=== PATIENT | male | born 1960 | race Caucasian/White ===

== ENCOUNTER 2018-06-29 10:23 | Inpatient (IN) ==
--- NOTE | 2018-06-29 11:10 | ED ---
HPI General Chief complaint: Medical Clearance Stated complaint: Medical Time Seen by Provider: 06/29/18 15:40 Source: patient Mode of arrival: ambulatory Limitations: no limitations History of Present Illness HPI Narrative: 57-year-old male here today with concerns about hallucinations, Parkinson's, and suicidal thoughts today. He has visual hallucinations, he does not have auditory hallucinations, which got worse when starting Nuplazid. He is awake alert oriented at this time. 2 months ago he had significant UTI and gallbladder surgery, and states he has not felt very well since the anesthesia from gallbladder surgery. His is at bedside and states she went in to the room with him today and he had a whole bottle of carbidopa/levodopa and was getting ready to swallow them all. He reports feelings of Despair and "don't want to live like this anymore". He sees Dr. Henry for neurology. Home Medications Medication Instructions Recorded Confirmed aspirin [Aspirin Low Dose] 81 mg PO DAILY 06/29/18 06/29/18 bupropion HCl 150 mg PO DAILY 06/29/18 06/29/18 carbidopa-levodopa 1 tab PO TID 06/29/18 06/29/18 losartan 100 mg PO DAILY 06/29/18 06/29/18 metoprolol tartrate 100 mg PO BID 06/29/18 06/29/18 pimavanserin [Nuplazid] 34 mg PO DAILY 06/29/18 06/29/18 pramipexole 0.5 mg PO TID 06/29/18 06/29/18 simvastatin 40 mg PO QPM 06/29/18 06/29/18 Allergies Allergy/AdvReac Type Severity Reaction Status Date / Time No Known Allergies Allergy Verified 06/29/18 10:54 Review of Systems ROS: all other systems reviewed are negative FOR[facility]LY [facility] Medical History Medical History Acute paranoia (Acute) HTN (hypertension) (Acute) Hallucinations, visual (Acute) Hypercholesteremia (Acute) Kidney stones (Acute) Parkinson disease (Acute) Family History Family History Other Cancer Diabetes Social History Social History Substance History: No History of Abuse Second Hand Smoke Exposure: No Smoking Status: Never smoker How Often Do You Have a Drink Containing Alcohol: Never Immunization History Tetanus Immunization: >5 Years Hx Influenza Vaccine This Season: No Exam Narrative Exam Narrative: GENERAL: Pt awake, alert, oriented. He is calm and cooperative. SKIN: Focused skin assessment warm/dry. HEAD: Atraumatic. Normocephalic. EYES: Pupils equal and round. No scleral icterus. No injection or drainage. ENT: No nasal bleeding or discharge. Mucous membranes pink and moist. NECK: Trachea midline. No JVD. CARDIOVASCULAR: Regular rate and rhythm. No murmur appreciated. RESPIRATORY: No accessory muscle use. Clear to auscultation. Breath sounds equal bilaterally. GASTROINTESTINAL: Abdomen soft, non-tender, nondistended. Hepatic and splenic margins not palpable. MUSCULOSKELETAL: No obvious deformities. No clubbing. No cyanosis. No edema. NEUROLOGICAL: Awake and alert. No obvious cranial nerve deficits. Motor grossly within normal limits. Normal speech. PSYCHIATRIC: Appropriate mood and affect; insight and judgment normal. Denies alcohol or drug use. Course Initial Documented Vital Signs Temperature 97.5 F L 06/29/18 10:29 Pulse Rate 65 06/29/18 10:29 Blood Pressure 177/86 H 06/29/18 10:29 Pulse Oximetry 97 06/29/18 10:29 Last Documented Vital Signs Temperature 97.6 F 07/02/18 05:59 Pulse Rate 62 07/02/18 05:59 Respiratory Rate 16 07/02/18 05:59 Blood Pressure 110/60 07/02/18 05:59 Pulse Oximetry 96 07/02/18 05:59 Medical Decision Making MDM Narrative Medical decision making narrative: Pt here for evaluation of visual hallucinations that are getting worse. Hx Parkinsons. Started on Nuplazid 2 weeks ago and is concerned that this medication may be causing hallucination. Hes awake, alert, oriented at this time, cooperative. at bedside. Will evaluate labwork and order psych evaluation. Seeing Dr. Henry for neurology. (+) UTI on labwork, Bactrim DS x 1 dose given today in ER. All other labs ok and pt medically cleared for psychiatry evaluation. Made [employer] RN aware. Pt admitted to psychiatric services with dx of adjustment disorder. Stable for admission, will need to continue antibiotics for urinary tract infection. Medical Screen Exam Complete: Yes Emergency Medical Condition: Yes Differential Diagnosis Differential Diagnosis: Urinary tract infection, paranoia, visual hallucinations , schizophrenia Lab Data Lab results reviewed: Yes I reviewed the patient's lab results. Lab results narrative: Urinalysis with 40 WBC's. 23 RBC's, Moderate amount of blood. Result diagrams: 06/29/18 11:24 06/30/18 08:40 Lab Results 06/29/18 06/29/18 06/29/18 Range/Units 11:24 11:30 11:30 WBC 7.2 (4.0-11.0) th/mm3 RBC 5.34 (4.50-5.90) mil/mm3 Hgb 15.7 (13.0-17.0) gm/dL Hct 47.5 (39.0-51.0) % MCV 88.9 (80.0-100.0) fL MCH 29.3 (27.0-34.0) pg MCHC 33.0 (32.0-36.0) % RDW 13.4 (11.6-17.2) % Plt Count 208 (150-450) th/mm3 MPV 9.3 (7.0-11.0) fL Neut % (Auto) 76.9 H (16.0-70.0) % Lymph % (Auto) 14.6 (9.0-44.0) % Lamb % (Auto) 6.3 (0.0-8.0) % Eos % (Auto) 1.5 (0.0-4.0) % Baso % (Auto) 0.7 (0.0-2.0) % Neut # (Auto) 5.5 (1.8-7.7) th/mm3 Lymph # (Auto) 1.1 (1.0-4.8) th/mm3 Lamb # (Auto) 0.5 (0.0-0.9) th/mm3 Eos # (Auto) 0.1 (0.0-0.4) th/mm3 Baso # (Auto) 0.1 (0.0-0.2) th/mm3 WBC Differential . Differential Comment Auto diff final ESR (0-20) mm/hr Sodium (136-145) meq/L Potassium (3.5-5.1) meq/L Chloride (98-107) meq/L Carbon Dioxide (21.0-32.0) meq/L Anion Gap (5-15) meq/L BUN (7-18) mg/dL Creatinine (0.60-1.30) mg/dL Estimated GFR (>89) mL/min Random Glucose (74-106) mg/dL Hemoglobin A1c (4.3-6.0) % Calcium (8.5-10.1) mg/dL Total Bilirubin (0.2-1.0) mg/dL AST (15-37) U/L ALT (12-78) U/L Alkaline Phosphatase (45-117) U/L Total Creatine Kinase (39-308) U/L CK-MB (CK-2) (0.5-3.6) ng/mL CK-MB (CK-2) % (0.0-4.0) % Total Protein (6.4-8.2) g/dL Albumin (3.4-5.0) g/dL Triglycerides (42-150) mg/dL Cholesterol (120-200) mg/dL LDL Cholesterol, Calc (0-99) mg/dL HDL Cholesterol (40.0-60.0) mg/dL Cholesterol/HDL Ratio Ratio Vitamin B12 (193-986) pg/mL TSH (0.358-3.740) uIU/mL Free T4 (0.76-1.46) ng/dL Urine Color Yellow (Yellw/Straw) Urine Clarity Hazy H (Clear) Urine pH 6.0 (5.0-8.5) Ur Specific [place] 1.016 (1.002-1.035) Urine Protein Negative (Neg-Trace) mg/dL Urine Glucose (UA) Negative (Negative) mg/dL Urine Ketones Trace H (Negative) mg/dL Urine Occult Blood Moderate H (Negative) Urine Nitrate Negative (Negative) Urine Bilirubin Negative (Negative) Urine Urobilinogen Less than 2 (Less than 2) mg/dL Ur Leukocyte Esterase Small H (Negative) Urine RBC 23 H (0-3) /hpf Urine WBC 40 H (0-5) /hpf Ur Squamous Epith Cells 1 (0-5) /hpf Urine Mucus Many H (Occasional) /lpf Micro UA Comment Culture indicated Ur Microscopic Review Not Reportable Urine Culture Comments Culture indicated Urine Opiates Screen Neg (Neg) Ur Barbiturates Screen Neg (Neg) Ur Amphetamines Screen Neg (Neg) U Benzodiazepines Scrn Neg (Neg) Urine Cocaine Screen Neg (Neg) U Cannabinoids Screen Neg (Neg) Serum Alcohol (0-5) mg/dL Rheumatoid Factor Scrn (Negative) Rheumatoid Factor Titer EDWIN Screen (Neg) RPR (Nonreactive) 06/29/18 06/30/18 06/30/18 Range/Units 12:20 08:40 08:40 WBC (4.0-11.0) th/mm3 RBC (4.50-5.90) mil/mm3 Hgb (13.0-17.0) gm/dL Hct (39.0-51.0) % MCV (80.0-100.0) fL MCH (27.0-34.0) pg MCHC (32.0-36.0) % RDW (11.6-17.2) % Plt Count (150-450) th/mm3 MPV (7.0-11.0) fL Neut % (Auto) (16.0-70.0) % Lymph % (Auto) (9.0-44.0) % Lamb % (Auto) (0.0-8.0) % Eos % (Auto) (0.0-4.0) % Baso % (Auto) (0.0-2.0) % Neut # (Auto) (1.8-7.7) th/mm3 Lymph # (Auto) (1.0-4.8) th/mm3 Lamb # (Auto) (0.0-0.9) th/mm3 Eos # (Auto) (0.0-0.4) th/mm3 Baso # (Auto) (0.0-0.2) th/mm3 WBC Differential Differential Comment ESR (0-20) mm/hr Sodium 144 140 (136-145) meq/L Potassium 4.0 3.7 (3.5-5.1) meq/L Chloride 107 107 (98-107) meq/L Carbon Dioxide 27.5 24.3 (21.0-32.0) meq/L Anion Gap 10 9 (5-15) meq/L BUN 15 17 (7-18) mg/dL Creatinine 0.78 0.92 (0.60-1.30) mg/dL Estimated GFR Greater than 89 85 L (>89) mL/min Random Glucose 92 151 H (74-106) mg/dL Hemoglobin A1c 5.6 (4.3-6.0) % Calcium 8.5 8.8 (8.5-10.1) mg/dL Total Bilirubin 0.7 (0.2-1.0) mg/dL AST 14 L (15-37) U/L ALT 11 L (12-78) U/L Alkaline Phosphatase 75 (45-117) U/L Total Creatine Kinase (39-308) U/L CK-MB (CK-2) (0.5-3.6) ng/mL CK-MB (CK-2) % (0.0-4.0) % Total Protein 7.3 (6.4-8.2) g/dL Albumin 3.7 (3.4-5.0) g/dL Triglycerides 83 (42-150) mg/dL Cholesterol 169 (120-200) mg/dL LDL Cholesterol, Calc 107 H (0-99) mg/dL HDL Cholesterol 45.0 (40.0-60.0) mg/dL Cholesterol/HDL Ratio 3.75 Ratio Vitamin B12 (193-986) pg/mL TSH 1.020 (0.358-3.740) uIU/mL Free T4 (0.76-1.46) ng/dL Urine Color (Yellw/Straw) Urine Clarity (Clear) Urine pH (5.0-8.5) Ur Specific [place] (1.002-1.035) Urine Protein (Neg-Trace) mg/dL Urine Glucose (UA) (Negative) mg/dL Urine Ketones (Negative) mg/dL Urine Occult Blood (Negative) Urine Nitrate (Negative) Urine Bilirubin (Negative) Urine Urobilinogen (Less than 2) mg/dL Ur Leukocyte Esterase (Negative) Urine RBC (0-3) /hpf Urine WBC (0-5) /hpf Ur Squamous Epith Cells (0-5) /hpf Urine Mucus (Occasional) /lpf Micro UA Comment Ur Microscopic Review Urine Culture Comments Urine Opiates Screen (Neg) Ur Barbiturates Screen (Neg) Ur Amphetamines Screen (Neg) U Benzodiazepines Scrn (Neg) Urine Cocaine Screen (Neg) U Cannabinoids Screen (Neg) Serum Alcohol Less than 3 (0-5) mg/dL Rheumatoid Factor Scrn (Negative) Rheumatoid Factor Titer EDWIN Screen (Neg) RPR (Nonreactive) 06/30/18 06/30/18 06/30/18 Range/Units 08:40 11:04 11:04 WBC (4.0-11.0) th/mm3 RBC (4.50-5.90) mil/mm3 Hgb (13.0-17.0) gm/dL Hct (39.0-51.0) % MCV (80.0-100.0) fL MCH (27.0-34.0) pg MCHC (32.0-36.0) % RDW (11.6-17.2) % Plt Count (150-450) th/mm3 MPV (7.0-11.0) fL Neut % (Auto) (16.0-70.0) % Lymph % (Auto) (9.0-44.0) % Lamb % (Auto) (0.0-8.0) % Eos % (Auto) (0.0-4.0) % Baso % (Auto) (0.0-2.0) % Neut # (Auto) (1.8-7.7) th/mm3 Lymph # (Auto) (1.0-4.8) th/mm3 Lamb # (Auto) (0.0-0.9) th/mm3 Eos # (Auto) (0.0-0.4) th/mm3 Baso # (Auto) (0.0-0.2) th/mm3 WBC Differential Differential Comment ESR 1 (0-20) mm/hr Sodium (136-145) meq/L Potassium (3.5-5.1) meq/L Chloride (98-107) meq/L Carbon Dioxide (21.0-32.0) meq/L Anion Gap (5-15) meq/L BUN (7-18) mg/dL Creatinine (0.60-1.30) mg/dL Estimated GFR (>89) mL/min Random Glucose (74-106) mg/dL Hemoglobin A1c (4.3-6.0) % Calcium (8.5-10.1) mg/dL Total Bilirubin (0.2-1.0) mg/dL AST (15-37) U/L ALT (12-78) U/L Alkaline Phosphatase (45-117) U/L Total Creatine Kinase (39-308) U/L CK-MB (CK-2) (0.5-3.6) ng/mL CK-MB (CK-2) % (0.0-4.0) % Total Protein (6.4-8.2) g/dL Albumin (3.4-5.0) g/dL Triglycerides (42-150) mg/dL Cholesterol (120-200) mg/dL LDL Cholesterol, Calc (0-99) mg/dL HDL Cholesterol (40.0-60.0) mg/dL Cholesterol/HDL Ratio Ratio Vitamin B12 185 L (193-986) pg/mL TSH (0.358-3.740) uIU/mL Free T4 1.13 (0.76-1.46) ng/dL Urine Color (Yellw/Straw) Urine Clarity (Clear) Urine pH (5.0-8.5) Ur Specific [place] (1.002-1.035) Urine Protein (Neg-Trace) mg/dL Urine Glucose (UA) (Negative) mg/dL Urine Ketones (Negative) mg/dL Urine Occult Blood (Negative) Urine Nitrate (Negative) Urine Bilirubin (Negative) Urine Urobilinogen (Less than 2) mg/dL Ur Leukocyte Esterase (Negative) Urine RBC (0-3) /hpf Urine WBC (0-5) /hpf Ur Squamous Epith Cells (0-5) /hpf Urine Mucus (Occasional) /lpf Micro UA Comment Ur Microscopic Review Urine Culture Comments Urine Opiates Screen (Neg) Ur Barbiturates Screen (Neg) Ur Amphetamines Screen (Neg) U Benzodiazepines Scrn (Neg) Urine Cocaine Screen (Neg) U Cannabinoids Screen (Neg) Serum Alcohol (0-5) mg/dL Rheumatoid Factor Scrn Negative (Negative) Rheumatoid Factor Titer Not Reportable EDWIN Screen Neg (Neg) RPR Nonreactive (Nonreactive) 07/01/18 Range/Units 07:57 WBC (4.0-11.0) th/mm3 RBC (4.50-5.90) mil/mm3 Hgb (13.0-17.0) gm/dL Hct (39.0-51.0) % MCV (80.0-100.0) fL MCH (27.0-34.0) pg MCHC (32.0-36.0) % RDW (11.6-17.2) % Plt Count (150-450) th/mm3 MPV (7.0-11.0) fL Neut % (Auto) (16.0-70.0) % Lymph % (Auto) (9.0-44.0) % Lamb % (Auto) (0.0-8.0) % Eos % (Auto) (0.0-4.0) % Baso % (Auto) (0.0-2.0) % Neut # (Auto) (1.8-7.7) th/mm3 Lymph # (Auto) (1.0-4.8) th/mm3 Lamb # (Auto) (0.0-0.9) th/mm3 Eos # (Auto) (0.0-0.4) th/mm3 Baso # (Auto) (0.0-0.2) th/mm3 WBC Differential Differential Comment ESR (0-20) mm/hr Sodium (136-145) meq/L Potassium (3.5-5.1) meq/L Chloride (98-107) meq/L Carbon Dioxide (21.0-32.0) meq/L Anion Gap (5-15) meq/L BUN (7-18) mg/dL Creatinine (0.60-1.30) mg/dL Estimated GFR (>89) mL/min Random Glucose (74-106) mg/dL Hemoglobin A1c (4.3-6.0) % Calcium (8.5-10.1) mg/dL Total Bilirubin (0.2-1.0) mg/dL AST (15-37) U/L ALT (12-78) U/L Alkaline Phosphatase (45-117) U/L Total Creatine Kinase 351 H (39-308) U/L CK-MB (CK-2) 2.7 (0.5-3.6) ng/mL CK-MB (CK-2) % 0.8 (0.0-4.0) % Total Protein (6.4-8.2) g/dL Albumin (3.4-5.0) g/dL Triglycerides (42-150) mg/dL Cholesterol (120-200) mg/dL LDL Cholesterol, Calc (0-99) mg/dL HDL Cholesterol (40.0-60.0) mg/dL Cholesterol/HDL Ratio Ratio Vitamin B12 (193-986) pg/mL TSH (0.358-3.740) uIU/mL Free T4 (0.76-1.46) ng/dL Urine Color (Yellw/Straw) Urine Clarity (Clear) Urine pH (5.0-8.5) Ur Specific [place] (1.002-1.035) Urine Protein (Neg-Trace) mg/dL Urine Glucose (UA) (Negative) mg/dL Urine Ketones (Negative) mg/dL Urine Occult Blood (Negative) Urine Nitrate (Negative) Urine Bilirubin (Negative) Urine Urobilinogen (Less than 2) mg/dL Ur Leukocyte Esterase (Negative) Urine RBC (0-3) /hpf Urine WBC (0-5) /hpf Ur Squamous Epith Cells (0-5) /hpf Urine Mucus (Occasional) /lpf Micro UA Comment Ur Microscopic Review Urine Culture Comments Urine Opiates Screen (Neg) Ur Barbiturates Screen (Neg) Ur Amphetamines Screen (Neg) U Benzodiazepines Scrn (Neg) Urine Cocaine Screen (Neg) U Cannabinoids Screen (Neg) Serum Alcohol (0-5) mg/dL Rheumatoid Factor Scrn (Negative) Rheumatoid Factor Titer EDWIN Screen (Neg) RPR (Nonreactive) Imaging Data Radiologist's impression: Head MRI 06/30/18 08:17 CONCLUSION: 1. No acute infarct, acute hemorrhage, midline shift or extra-axial fluid collections. 2. Minimal scattered periventricular and subcortical white matter small vessel ischemic changes bilaterally. 3. Mild cerebral atrophy. Discharge Plan Discharge Disposition Patient Disposition: 30 Still Patient Discharge Condition Condition: Stable Discharge Details Diagnosis: Urinary tract infection, Adjustment disorder Physicians Team ED Provider: Elan Angeles ED Midlevel Provider: Radha Morton Primary Care Provider: Willy Green Attending Provider: Prince Daniel Other Providers: Cipriano Castillo ; Neli Olmeod Status ED Status: Left Department Discharge Information Discharge Date/Time: 06/29/18 17:32
[2018-06-29 11:52] LABS: Baso # (Auto) 0.1 th/mm3 (0.0-0.2); Baso % (Auto) 0.7 % (0.0-2.0); Eos # (Auto) 0.1 th/mm3 (0.0-0.4); Eos % (Auto) 1.5 % (0.0-4.0); Hematocrit 47.5 % (39.0-51.0); Hemoglobin 15.7 gm/dL (13.0-17.0); Lymph # (Auto) 1.1 th/mm3 (1.0-4.8); Lymph % (Auto) 14.6 % (9.0-44.0); Mean Corpuscular Hemoglobin 29.3 pg (27.0-34.0); Mean Corpuscular Volume 88.9 fL (80.0-100.0); Mean Platelet Volume 9.3 fL (7.0-11.0); Mono # (Auto) 0.5 th/mm3 (0.0-0.9); Mono % (Auto) 6.3 % (0.0-8.0); Neut # (Auto) 5.5 th/mm3 (1.8-7.7); Neut % (Auto) 76.9 % (16.0-70.0); Platelet Count 208 th/mm3 (150-450); Red Blood Count 5.34 mil/mm3 (4.50-5.90); Red Cell Distribution Width 13.4 % (11.6-17.2); White Blood Count 7.2 th/mm3 (4.0-11.0)
[2018-06-29 11:59] LABS: Bilirubin,Urine Negative (Negative); Clarity,Urine Hazy (Clear); Color,Urine Yellow (Yellw/Straw); Glucose,Urine (UA) Negative (Negative); Leukocyte Esterase,Urine Small (Negative); Mucus,Urine Many /lpf (Occasional); Nitrite,Urine Negative (Negative); Specific Gravity,Urine 1.016 (1.002-1.035); Squamous Epithelial Cell,Urine 1 /hpf (0-5)
[2018-06-29 12:04] LABS: Amphetamine Screen,Urine Neg (Neg); Barbiturate Screen,Urine Neg (Neg); Cannabinoid Screen,Urine Neg (Neg); Cocaine Screen,Urine Neg (Neg)
[2018-06-29 12:06] LABS: Opiate Screen,Urine Neg (Neg)
[2018-06-29 13:01] LABS: Alanine Aminotransferase 11 U/L (12-78); Albumin 3.7 g/dL (3.4-5.0); Anion Gap 10 meq/L (5-15); Aspartate Aminotransferase 14 U/L (15-37); Blood Urea Nitrogen 15 mg/dL (7-18); Calcium 8.5 mg/dL (8.5-10.1); Carbon Dioxide 27.5 meq/L (21.0-32.0); Chloride 107 meq/L (98-107); Glomerular Filtration Rate Greater Than 89 mL/min (>89); Glucose,Random 92 mg/dL (74-106); Sodium 144 meq/L (136-145)
[2018-06-29 13:11] LABS: Alkaline Phosphatase 75 U/L (45-117); Total Protein 7.3 g/dL (6.4-8.2)
--- NOTE | 2018-06-29 16:22 | ED ---
HPI - Psych - General Source: patient Mode of arrival: ambulatory Limitations: no limitations - History of Present Illness MD complaint: suicidal ideation, other Onset (ago): hour(s) Duration: constant History of same: Yes Relieving factors: none Exacerbating factors: other Context: significant life stressor Associated psychiatric symptoms: depression, suicidal ideation, visual hallucinations Associated symptoms: other (Parkinson's) Treatments prior to arrival: none - General Chief Complaint: Medical Clearance Stated Complaint: Medical Time Seen by Provider: 06/29/18 15:40 - History of Present Illness HPI Narrative: History of Present Illness HPI Narrative: [age] year old, male, on disability, lives with his , with history of Parkinson's, recent reports of visual hallucinations, suicidal thoughts, increased feelings of despair related to his diagnosis, who earlier today was found by his with a full bottle of carbidopa/levodopa in his hands and getting ready to take them all due to feeling so frustrated with his symptoms. Patient reports that 2 months ago he had a significant UTI followed by gallbladder surgery and hernia repair surgery. He was most recently started on a new medication, Nuplazin, and was taken off Seroquel. He reports no benefit from such medication. The patient is being treated by Dr. Henry, neurologist. In terms of psychiatric treatment, he was first hospitalized couple of weeks ago under a Friedman act initiated during medical hospitalization for treatment of his UTI. Patient seen. is at bedside. Patient is alert, oriented, cooperative. Dressed casually with appropriate hygiene and grooming. Speech is clear and of normal rate and tone. No auditory hallucinations but reports visual hallucinations of small children and people. While here in the ED he continues to experience these hallucinations and tells me that he sees people outside of his emergency room. He goes on to state that these hallucinations are intimidated and because at times they will just stand and stare at him. He is also become worried that these people will harm his . He admits to suicidal thoughts due to feeling so overwhelmed and stressed with his symptoms. (Maria C Jmaeson) - Related Data Home Medications Medication Instructions Recorded Confirmed aspirin [Aspirin Low Dose] 81 mg PO DAILY 06/29/18 06/29/18 bupropion HCl 150 mg PO DAILY 06/29/18 06/29/18 carbidopa-levodopa 1 tab PO TID 06/29/18 06/29/18 losartan 100 mg PO DAILY 06/29/18 06/29/18 metoprolol tartrate 100 mg PO BID 06/29/18 06/29/18 pimavanserin [Nuplazid] 34 mg PO DAILY 06/29/18 06/29/18 pramipexole 0.5 mg PO TID 06/29/18 06/29/18 simvastatin 40 mg PO QPM 06/29/18 06/29/18 Allergies Allergy/AdvReac Type Severity Reaction Status Date / Time No Known Allergies Allergy Verified 06/29/18 10:54 PMF - History History Provided By: Patient, Significant Other - Medical History Medical History: Medical History (Last Updated 06/29/18 @ 10:55 by Ghislaine Nguyễn RN) Acute paranoia HTN (hypertension) Hallucinations, visual Hypercholesteremia Kidney stones Parkinson disease - Surgical History Surgical History: Surgical History (Last Updated 06/29/18 @ 10:55 by Ghislaine Nguyễn RN) H/O lithotripsy History of arthroscopic knee surgery History of cholecystectomy History of umbilical hernia repair - Social History I have reviewed the patient's Social History: Yes - Tobacco History Smoking Status: Never smoker - Alcohol History How Often Do You Have a Drink Containing Alcohol: Never - Substance Use History Substance History: No History of Abuse - Immunization History Tetanus Immunization: >5 Years Hx Influenza Vaccine This Season: No Psychiatric History - Psychiatric History Psychiatric Treatment History: History of Psychiatric Treatment, History of Hospitalization in a Psychiatric Facility History of Inpatient Treatment: Yes Firearms in Home: No - Psychiatric History First psychiatric hospitalization a couple weeks ago at [facility] after being placed under Friedman act. He has been prescribed medication by his neurologist Dr. Henry. He has an appointment scheduled for outpatient psychiatry at [facility]. (Maria C Jameson) Physical Exam - General Limitations: no limitations Mental Status Examination Appearance: Well dressed/well groomed Consciousness: Alert Orientation: x4 Motor Activity: Other (Tremors noted) Speech: Unremarkable Language: Adequate Fund of Knowledge: Adequate Attention and Concentration: Adequate Memory: Unremarkable Mood: Sad Affect: Appropriate Thought Process & Associations: Intact, Logical, Goal directed Thought Content: Hallucinations Hallucination Type: Visual Delusion Type: None Suicidal Ideation: Yes Suicidal Plan: Yes Suicidal Intention: No Homicidal Ideation: No Homicidal Plan: No Homicidal Intention: No Insight: Adequate Judgment: Adequate Initial Documented Vital Signs Temperature 97.5 F L 06/29/18 10:29 Pulse Rate 65 06/29/18 10:29 Blood Pressure 177/86 H 06/29/18 10:29 Pulse Oximetry 97 06/29/18 10:29 Last Documented Vital Signs Temperature 97.9 F 06/29/18 18:00 Pulse Rate 88 06/29/18 18:00 Respiratory Rate 17 06/29/18 18:00 Blood Pressure 130/67 06/29/18 18:00 Pulse Oximetry 96 06/29/18 18:00 MDM - Psych - Diagnosis (1) Psychosis due to Parkinson's disease Status: Acute - Lab Data Result diagrams: 06/29/18 11:24 06/29/18 12:20 - [facility] Narrative Medical decision making narrative: At the time of this evaluation the patient meets criteria for inpatient psychiatric hospitalization for further evaluation, for safety, and medication adjustment. A consult for neurology has been ordered. Patient has been started on treatment for his UTI but will need to follow-up on inpatient unit. At this point it is unclear if his increase in symptoms is related to his UTI, post anesthesia, Parkinson's medication, or need to adjust current psychiatric meds. (Maria C Jameson) - Lab Data Lab Results 06/29/18 06/29/18 06/29/18 Range/Units 11:24 11:30 11:30 WBC 7.2 (4.0-11.0) th/mm3 RBC 5.34 (4.50-5.90) mil/mm3 Hgb 15.7 (13.0-17.0) gm/dL Hct 47.5 (39.0-51.0) % MCV 88.9 (80.0-100.0) fL MCH 29.3 (27.0-34.0) pg MCHC 33.0 (32.0-36.0) % RDW 13.4 (11.6-17.2) % Plt Count 208 (150-450) th/mm3 MPV 9.3 (7.0-11.0) fL Neut % (Auto) 76.9 H (16.0-70.0) % Lymph % (Auto) 14.6 (9.0-44.0) % Burleigh % (Auto) 6.3 (0.0-8.0) % Eos % (Auto) 1.5 (0.0-4.0) % Baso % (Auto) 0.7 (0.0-2.0) % Neut # (Auto) 5.5 (1.8-7.7) th/mm3 Lymph # (Auto) 1.1 (1.0-4.8) th/mm3 Burleigh # (Auto) 0.5 (0.0-0.9) th/mm3 Eos # (Auto) 0.1 (0.0-0.4) th/mm3 Baso # (Auto) 0.1 (0.0-0.2) th/mm3 WBC Differential . Differential Comment Auto diff final Sodium (136-145) meq/L Potassium (3.5-5.1) meq/L Chloride (98-107) meq/L Carbon Dioxide (21.0-32.0) meq/L Anion Gap (5-15) meq/L BUN (7-18) mg/dL Creatinine (0.60-1.30) mg/dL Estimated GFR (>89) mL/min Random Glucose (74-106) mg/dL Calcium (8.5-10.1) mg/dL Total Bilirubin (0.2-1.0) mg/dL AST (15-37) U/L ALT (12-78) U/L Alkaline Phosphatase (45-117) U/L Total Protein (6.4-8.2) g/dL Albumin (3.4-5.0) g/dL TSH (0.358-3.740) uIU/mL Urine Color Yellow (Yellw/Straw) Urine Clarity Hazy H (Clear) Urine pH 6.0 (5.0-8.5) Ur Specific Watson 1.016 (1.002-1.035) Urine Protein Negative (Neg-Trace) mg/dL Urine Glucose (UA) Negative (Negative) mg/dL Urine Ketones Trace H (Negative) mg/dL Urine Occult Blood Moderate H (Negative) Urine Nitrate Negative (Negative) Urine Bilirubin Negative (Negative) Urine Urobilinogen Less than 2 (Less than 2) mg/dL Ur Leukocyte Esterase Small H (Negative) Urine RBC 23 H (0-3) /hpf Urine WBC 40 H (0-5) /hpf Ur Squamous Epith Cells 1 (0-5) /hpf Urine Mucus Many H (Occasional) /lpf Micro UA Comment Culture indicated Ur Microscopic Review Not Reportable Urine Culture Comments Culture indicated Urine Opiates Screen Neg (Neg) Ur Barbiturates Screen Neg (Neg) Ur Amphetamines Screen Neg (Neg) U Benzodiazepines Scrn Neg (Neg) Urine Cocaine Screen Neg (Neg) U Cannabinoids Screen Neg (Neg) Serum Alcohol (0-5) mg/dL 06/29/18 Range/Units 12:20 WBC (4.0-11.0) th/mm3 RBC (4.50-5.90) mil/mm3 Hgb (13.0-17.0) gm/dL Hct (39.0-51.0) % MCV (80.0-100.0) fL MCH (27.0-34.0) pg MCHC (32.0-36.0) % RDW (11.6-17.2) % Plt Count (150-450) th/mm3 MPV (7.0-11.0) fL Neut % (Auto) (16.0-70.0) % Lymph % (Auto) (9.0-44.0) % Burleigh % (Auto) (0.0-8.0) % Eos % (Auto) (0.0-4.0) % Baso % (Auto) (0.0-2.0) % Neut # (Auto) (1.8-7.7) th/mm3 Lymph # (Auto) (1.0-4.8) th/mm3 Burleigh # (Auto) (0.0-0.9) th/mm3 Eos # (Auto) (0.0-0.4) th/mm3 Baso # (Auto) (0.0-0.2) th/mm3 WBC Differential Differential Comment Sodium 144 (136-145) meq/L Potassium 4.0 (3.5-5.1) meq/L Chloride 107 (98-107) meq/L Carbon Dioxide 27.5 (21.0-32.0) meq/L Anion Gap 10 (5-15) meq/L BUN 15 (7-18) mg/dL Creatinine 0.78 (0.60-1.30) mg/dL Estimated GFR Greater than 89 (>89) mL/min Random Glucose 92 (74-106) mg/dL Calcium 8.5 (8.5-10.1) mg/dL Total Bilirubin 0.7 (0.2-1.0) mg/dL AST 14 L (15-37) U/L ALT 11 L (12-78) U/L Alkaline Phosphatase 75 (45-117) U/L Total Protein 7.3 (6.4-8.2) g/dL Albumin 3.7 (3.4-5.0) g/dL TSH 1.020 (0.358-3.740) uIU/mL Urine Color (Yellw/Straw) Urine Clarity (Clear) Urine pH (5.0-8.5) Ur Specific Watson (1.002-1.035) Urine Protein (Neg-Trace) mg/dL Urine Glucose (UA) (Negative) mg/dL Urine Ketones (Negative) mg/dL Urine Occult Blood (Negative) Urine Nitrate (Negative) Urine Bilirubin (Negative) Urine Urobilinogen (Less than 2) mg/dL Ur Leukocyte Esterase (Negative) Urine RBC (0-3) /hpf Urine WBC (0-5) /hpf Ur Squamous Epith Cells (0-5) /hpf Urine Mucus (Occasional) /lpf Micro UA Comment Ur Microscopic Review Urine Culture Comments Urine Opiates Screen (Neg) Ur Barbiturates Screen (Neg) Ur Amphetamines Screen (Neg) U Benzodiazepines Scrn (Neg) Urine Cocaine Screen (Neg) U Cannabinoids Screen (Neg) Serum Alcohol Less than 3 (0-5) mg/dL
[2018-06-29] MEDS ORDERED: Aluminum/Magnesium/Simethacone Susp 30 ML UDC PO PRN (16:29)
[2018-06-29] MEDS ORDERED: Bisacodyl 10 MG Supp RECTAL PRN (16:29)
[2018-06-29] MEDS ORDERED: PRAMIPEXOLE 0.5 MG PO SCH (18:00)
[2018-06-29] MEDS: Metoprolol Tartrate 50 MG Tablet PO SCH (23:11)
[2018-06-29] MEDS: PIMAVANSERIN PO SCH (23:28)
[2018-06-30] MEDS: buPROPion 150 MG 12 HR Tablet PO SCH (08:52)
[2018-06-30] MEDS: Metoprolol Tartrate 50 MG Tablet PO SCH ×2 (08:53→21:57)
[2018-06-30] MEDS: PIMAVANSERIN PO SCH (08:54)
[2018-06-30] MEDS ORDERED: PIMAVANSERIN 34 MG PO SCH (09:00)
[2018-06-30] MEDS ORDERED: PIMAVANSERIN PO SCH (09:00)
[2018-06-30 09:43] LABS: Calcium 8.8 mg/dL (8.5-10.1); Carbon Dioxide 24.3 meq/L (21.0-32.0); Potassium 3.7 meq/L (3.5-5.1)
[2018-06-30 09:46] LABS: Chol/HDL Ratio 3.75 Ratio
--- NOTE | 2018-06-30 10:00 | P.CON ---
History of Present Illness Service: [facility] Consult date: 06/30/18 Requesting Physician: Prince Daniel Reason for Consult: Medical management Primary Care Provider: Willy Green DO Chief Complaint: hallucinations History of Present Illness: Mr. Bojorquez is a pleasant 57-year-old white male with significant past medical history of Parkinson's disease diagnosed 2 years ago, hypertension, anxiety, hyperlipidemia. Patient presented to the emergency room with complaint of hallucinations that he has had for several weeks. According to the patient, in April he had 2 surgical procedures back to back. He had an umbilical hernia repair and prior to that had a cholecystectomy and also had what sounds like an ERCP. Indicates that he was put on tramadol, Dilaudid and had anesthesia with procedures. After that he started to have hallucinations. Indicates that he sees people staring at him and although he realizes that these visions are not real, it is a very "scary" situation. He is awake alert oriented however he has become very concerned about hallucinations. Indicates he occasionally has flashes. Denies any headaches, no double vision, no chest pain, no shortness of breath, no fever, no chills. Because of this hallucinations, he went to see his neurologist Dr. Contreras and he was started on a new medication Nuplazid. Indicates that hallucinations have become worse. He denies any auditory hallucinations. He has been taking a Nuplazid for the last 2-3 weeks. Yesterday, he grabbed his bottle of carbidopa/levodopa and was getting ready to swallow them all. He verbalized some feelings of despair and not wanting to live like this anymore. Because of this, his and he agreed to come to the hospital for further evaluation. He denies any suicidal ideation at this time, no homicidal ideation at this time. Laboratory workup was completed in the emergency room, essentially unremarkable. UA with 40 WBC, negative for nitrates and leukocyte esterase. He received 1 dose of Bactrim p.o. He denies any urinary symptoms. No fever, no chills. Indicates he has recuperated from his surgical procedures, has minimal surgical site pain. No abdominal pain, no nausea, no vomiting, no diarrhea. Hospitalist services are consulted to assist with medical management. Review of Systems All other systems reviewed negative except as stated in HPI PMFSH - History History Provided By: Patient, Significant Other - Medical History Medical History: Medical History (Last Reviewed 06/30/18 @ 13:46 by ZACH Santana) Acute paranoia HTN (hypertension) Hallucinations, visual Hypercholesteremia Kidney stones Parkinson disease - Surgical History Surgical History: Surgical History (Last Reviewed 06/30/18 @ 13:46 by ZACH Santana) History of hernia repair H/O lithotripsy History of arthroscopic knee surgery History of cholecystectomy History of umbilical hernia repair - Family History Family History: Family History (Last Updated 06/30/18 @ 13:47 by ZACH Santana) Other Cancer Diabetes - Social History I have reviewed the patient's Social History: Yes - Tobacco History Second Hand Smoke Exposure: No Smoking Status: Never smoker - Alcohol History How Often Do You Have a Drink Containing Alcohol: Never - Substance Use History Substance History: No History of Abuse - Immunization History Tetanus Immunization: >5 Years Hx Influenza Vaccine This Season: No Medications and Allergies Active Medications: Active Medications Al Hydrox/Mg Hydrox/Simethicone (Mag-Al Plus Susp Liq) 30 ml PO Q6H PRN PRN Reason: DYSPEPSIA Al Hydroxide/Mg Hydroxide (Milk Of Magnesia Liq) 30 ml PO Q12H PRN PRN Reason: Mild Constipation Aspirin (Ecotrin) 81 mg PO DAILY [facility] Last Admin: 06/30/18 08:51 Dose: 81 mg Bisacodyl (Dulcolax Supp) 10 mg RECTAL DAILY PRN PRN Reason: SEVERE CONSITIPATION Bupropion HCl (Wellbutrin Sr) 150 mg PO DAILY [facility] Last Admin: 06/30/18 08:52 Dose: 150 mg Carbidopa/Levodopa (Sinemet 25/100 Mg) 1 tab PO TID [facility] Last Admin: 06/30/18 08:52 Dose: 1 tab Lactulose (Lactulose Liq) 30 ml PO DAILY PRN PRN Reason: SEVERE CONSITIPATION Losartan Potassium (Cozaar) 100 mg PO DAILY [facility] Last Admin: 06/30/18 08:52 Dose: 100 mg Metoprolol Tartrate (Lopressor) 100 mg PO BID [facility] Last Admin: 06/30/18 08:53 Dose: 100 mg Pt:Nuplazid( (Pimavanserin) 34 Mg) 0 each PO DAILY [facility] Last Admin: 06/30/18 08:54 Dose: 1 each Pramipexole Dihydrochloride (Mirapex) 0.5 mg PO TID [facility] Last Admin: 06/30/18 08:55 Dose: Not Given Pravastatin Sodium (Pravachol) 80 mg PO QPM [facility] Last Admin: 06/29/18 23:10 Dose: 80 mg Sennosides (Senokot) 17.2 mg PO Q12H PRN PRN Reason: Moderate Constipation Allergies Allergy/AdvReac Type Severity Reaction Status Date / Time No Known Allergies Allergy Verified 06/29/18 10:54 Home Medications Medication Instructions Recorded Confirmed Type aspirin [Aspirin Low Dose] 81 mg PO DAILY 06/29/18 06/29/18 History bupropion HCl 150 mg PO DAILY 06/29/18 06/29/18 History carbidopa-levodopa 1 tab PO TID 06/29/18 06/29/18 History losartan 100 mg PO DAILY 06/29/18 06/29/18 History metoprolol tartrate 100 mg PO BID 06/29/18 06/29/18 History pimavanserin [Nuplazid] 34 mg PO DAILY 06/29/18 06/29/18 History pramipexole 0.5 mg PO TID 06/29/18 06/29/18 History simvastatin 40 mg PO QPM 06/29/18 06/29/18 History Physical Exam Vital signs: Vital Signs 06/29/18 10:29 06/29/18 16:43 06/29/18 18:00 Temperature 97.5 F L 97.2 F L Pulse Rate 65 78 63 Respiratory Rate 20 22 Blood Pressure 177/86 H 152/87 H 180/91 H Pulse Oximetry 97 97 97 06/29/18 20:34 06/30/18 06:00 Temperature 98.3 F Pulse Rate 64 Respiratory Rate 18 Blood Pressure 140/90 110/58 L Pulse Oximetry 95 Intake & Output 06/29/18 06/30/18 06/30/18 18:59 06:59 18:59 Intake Total 360 / 360 Balance 360 / 360 Weight 138.346 kg Intake: Oral 360 / 360 Narrative: GENERAL: 57-year-old obese male, no apparent distress. SKIN: Warm and dry. HEAD: Atraumatic. Normocephalic. EYES: Pupils equal and round. No scleral icterus. No injection or drainage. ENT: No nasal bleeding or discharge. Mucous membranes pink and moist. NECK: Trachea midline. No JVD. CARDIOVASCULAR: Regular rate and rhythm. RESPIRATORY: No accessory muscle use. Clear to auscultation. Breath sounds equal bilaterally. GASTROINTESTINAL: Abdomen soft, non-tender, nondistended. Hepatic and splenic margins not palpable. Incision noted below umbilicus, healing well. Laparoscopic incisions from recent cholecystectomy, healing well, no drainage, edges well approximated. MUSCULOSKELETAL: Extremities without clubbing, cyanosis, or edema. No obvious deformities. NEUROLOGICAL: Awake, alert oriented x3. Following commands appropriately. No focal deficits. Mild resting hand tremor. PSYCHIATRIC: Appropriate mood and affect; insight and judgment normal. Assessment and Plan - Assessment (1) Unspecified psychosis Code(s): F29 - Unspecified psychosis not due to a substance or known physiological condition Status: Acute (2) Hallucination, visual Code(s): R44.1 - Visual hallucinations Status: Acute (3) Hypertension Code(s): I10 - Essential (primary) hypertension Status: Chronic (4) Parkinson disease Code(s): G20 - Parkinson's disease Status: Chronic (5) Hyperlipemia Code(s): E78.5 - Hyperlipidemia, unspecified Status: Chronic (6) Anxiety Code(s): F41.9 - Anxiety disorder, unspecified Status: Chronic - Plan 57-year-old male presented with complaint of visual hallucinations since having surgeries in April. History of Parkinson's disease, recently started on Nuplazid. Currently taking Sinemet and pramipexole. Verbalized feeling despair , voiced suicidal thoughts. Acute psychosis, visual hallucinations. History of Parkinson's disease, recently started on Nuplazid. Taking Sinemet and Pramipexole. Etiology of visual hallucinations unclear at this time, possibly medication induced, possibly associated with Parkinson's disease -Dr. Trevizo has evaluated patient, MRI of the brain as well as EEG have been ordered He recommends to stop pramipexole, this has been done Continue with Sinemet and Nuplazid -Neurology recommends against starting any antipsychotic at this time. -Laboratory workup has been ordered per neurology, TSH, B12-we will follow-up on results Hypertension Continue Cozaar and metoprolol HLP Continue Pravachol Anxiety -Continue Wellbutrin S/P cholecystectomy, umbilical hernia repair and ERCP Stable, tolerating diet well -continue to monitor. Asymptomatic bacteriuria, received 1 dose of Bactrim in the emergency room At this time we will hold off on continuing antibiotics -Monitor for any fever, urinary symptoms DVT prophylaxis not required, patient is ambulatory. Plan of care discussed with patient and RN. Further management of the patient will be dependent on hospital course Code Status: Full code Discussed Condition With: RN, patient, Dr. Daniel Discharge Planning: Per psychiatric team (1) Unspecified psychosis Qualifiers: Psychosis type: unspecified psychosis type Qualified Code(s): F29 - Unspecified psychosis not due to a substance or known physiological condition (3) Hypertension Qualifiers: Hypertension type: essential hypertension Qualified Code(s): I10 - Essential (primary) hypertension (5) Hyperlipemia Qualifiers: Hyperlipidemia type: unspecified Qualified Code(s): E78.5 - Hyperlipidemia, unspecified
--- NOTE | 2018-06-30 10:16 | MB ---
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 History of anxiety, who has had Parkinson disease for the last 2 years. He was seeing Dr. Carlton, now . He lives down in [place]. He has been on Sinemet for about 2 years. He takes 25/100 at 6 a.m., noon, and 6 p.m. His main symptoms have been drooling, bilateral hand tremors, and for the last 8 weeks, has had hallucinations, which seemed to start after he had gallbladder surgery about 7 or 8 weeks ago. He sees people that he does not know. He feels a little bit paranoid. He says he was not really trying to kill himself, but has had some despair and evidently, he was thought to have an intention of taking all of his Sinemet at once. He denies any headache. REVIEW OF SYSTEMS: He denies any history of diabetes. He has hypertension, hypercholesterolemia. He denies any WI, CABG, cardiac arrhythmia, stent, angioplasty, AFib, Coumadin, renal, hepatic or pulmonary disease; thyroid disease, lupus, ulcer, cancer, seizure or stroke. SOCIAL HISTORY: Not a smoker or drinker. No drugs. Lives with his . FAMILY HISTORY: Positive for cancer. Negative for seizure or stroke. Negative for depression. He himself denies any depression, more anxiety. MEDICATIONS AT HOME: He was on Nuplazid, just started several days ago, 34 mg a day; simvastatin, pramipexole, Sinemet 25/100 6 a.m., noon and 6 p.m.; metoprolol, Losartan, bupropion 150 mg a day, aspirin 81 mg. PHYSICAL EXAMINATION: VITAL SIGNS: Afebrile 110/58, 18, 64 to 77/86. NECK: There were no carotid bruits. HEART: Regular rate and rhythm. I did not detect a murmur. NEUROLOGIC: Pupils are equal. Visual liu are full. Extraocular movements intact on exam. Face is symmetric with normal sensation. Tongue was midline. No drift. Normal strength in upper and lower extremities bilaterally. DTRs are 1+ and symmetric throughout. Toes downgoing bilaterally. Pinprick is intact throughout. He is not ataxic on [id number]. He had normal gait. Speech is fluent. He is not aphasic. He is alert and oriented x3. Remembered 2/3 words at 3 minutes. He has a tremor at rest and some minimal cogwheel rigidity bilateral upper extremities. It is more of a fine tremor, than a pill-rolling tremor today. LABORATORY DATA: CBC is normal. Urine drug screen negative. UA: 40 white cells, 23 red cells, small amount of leukocyte esterase. BMP is normal. LFTs are normal. TSH normal. IMPRESSION AND PLAN: Some depression, hallucinations, possibly could have developed some early Lewy body dementia. At this point, he has been stopped on the pramipexole, and I would keep him off of that, as that may have been causing some hallucinations. We can see how he maintains off of that. Another possibility would be to take him off the Sinemet, and see how he does just on Azilect. The pramipexole can cause hallucinations. His main complaints of the Parkinson's are more tremor and drooling. We will monitor him here in the hospital and consider medication changes with that. If he continues to have hallucinations after stopping the pramipexole, we could try him off of Sinemet and switch to Azilect, and see if that takes away the hallucinations. At this time, I would rather not have him on the antipsychotics, which could make his Parkinson's worse, if possible. I would be amenable to changing his antidepressant from bupropion, as I worry about that causing seizures. We will check an EEG on him and MRI of the brain, some additional blood work. Will be following when he is in the hospital. Could consider some Artane for his tremors instead of the Sinemet, however, that could exacerbate hallucinations, so we will just monitor him off the pramipexole and see how the hallucinations go. MD KELLY Griffin/ramesh/loren , 08:19 AM , 08:28 AM
[2018-06-30 10:50] LABS: Free T4 (Free Thyroxine) 1.13 ng/dL (0.76-1.46); Vitamin B12 185 pg/mL (193-986)
--- NOTE | 2018-06-30 11:52 | P.HPPSY ---
Provisional Diagnosis Admission Date: June 29, 2018 16:41 Graham I.: Unspecified psychosis Competence Certification of Person's Competence To Provide Express and Informed Consent I have personally examined Rylan Bojorquez, a person being served at [facility] on, June 30, 2018 1150. Express and informed consent means consent voluntarily given in writing, by a competent person, after sufficient explanation and disclosure of the subject matter involved to enable the person to make a knowing and willful decision without any element of force, fraud, deceit, duress, or other form of constraint or coercion. This person is 18 years of age or older, is not now known to be incompetent to consent to treatment with a guardian advocate, and does not have a health care surrogate or proxy currently making medical treatment decisions. I have found this person to be one of the following: [xxx] Competent to provide express and informed consent, as defined above, for voluntary admission to this facility and is competent to provide express and informed consent for treatment. He/she has the consistent capacity to make well reasoned, willful, and knowing decisions concerning his or her medical or mental health treatment. The person fully and consistently understands the purpose of the admission for examination/placement and is fully capable of personally exercising all rights assured [place] Incompetent to provide express and informed consent to voluntary admission, and this is incompetent to provide express and informed consent to treatment. The person must be transferred to involuntary status and a petition for a guardian advocate filed with the Circuit Court. [] Refusing to provide express and informed consent to voluntary admission but is competent to provide express and informed consent for treatment. The person must be discharged or transferred to involuntary status. Form shall be completed within 24 hours of a person's arrival at the receiving facility and filed in the clinical record of each person: 1. Admitted on a voluntary basis 2. Permitted to provide express and informed consent to his/her own treatment 3. Allowed to transfer from involuntary to voluntary status 4. Prior to permitting a person to consent to his or her own treatment after having been previously found incompetent to consent to treatment. History of Present Illness Capacity: Has capacity History of Present Illness: Patient is a 57-year-old man, , unemployed on Social Security disability, domiciled with , has 1 stepdaughter and 1 son who , with no known past psychiatric history, no previous psychiatric diagnoses, hospitalizations or suicide attempts, no substance use history, with a past medical history significant for Parkinson's disease, hypertension, hyperlipidemia, who came in voluntarily due to having suicidal ideations along with visual hallucinations in the context of recent UTI and recent gallbladder surgery. As per chart had sent patient ready to swallow whole bottle of medications and that hallucinations have been worsening with starting of Nuplazid along with paranoid ideations of these visual hallucinations and feeling that these hallucinations of people will harm his . Patient was found sitting in hospital chair noted B, cooperative. Patient states that he had surgery for his gallbladder late April but had not continue on any pain medications since the beginning of May upon discharge. He recalls having had been Friedman acted after the surgery I had reported visual hallucinations of seeing people but denying any auditory hallucinations. He mentions of seeing intimidating people, body contortion and her body stretching out. Patient states that these images are very disturbing has insight into the fact that these are hallucinations although continues to endorse experiencing them. He mentions having gone back to the ED due to these hallucinations and was admitted to in [facility]. He mentions having bizarre visual hallucinations along with paranoid ideations of these hallucinations. He also mentions feeling that he was being set up to look like a bad person. He reports having stated to his "what do I do know I need to take all these pills". Patient denies having had any true intention of suicide only stating being feeling frustrated with these hallucinations which are very distressing. He reports no changes sleep, reports his mood as being frustrate" continues to endorse visual hallucinations which she last experienced this morning which he reports having seeing "people in the nurse's station" along with feeling being pursued by these hallucinations. Patient denies any suicidal homicidal ideations or auditory hallucinations at this time. Family psychiatric history: Denies Past psychiatric history: Denies Substance use history: Denies Past medical history: Parkinson's disease, HTN, HLD Allergies: NKDA Social history: , unemployed on SSD, domiciled , has 1 stepdaughter, and one son. He denies any background, denies any asked to firearms. Denies any legal history. - Inpatient Certification I certify that the inpatient services were ordered in accordance with Medicare regulations governing the order. This includes certification that hospital inpatient services are reasonable and necessary and in the case of services not specified as inpatient-only under 42 CFR 419.22(n), that they are appropriately provided as inpatient services in accordance to with the 2-midnight benchmark under 43 CFR 412.3(e) I certify that inpatient psychiatric hospital services are medically necessary. Evaluation and treatment and/or diagnostic testing are expected to improve the patient's condition. The patient needs on a daily basis, active treatment furnished directly by or requiring the supervision of inpatient psychiatric facility personnel. Estimated Total Length of Stay (Days): 5 Plans for Post Hospital Care: Home Review of Systems All other systems reviewed negative except as stated in HPI [facility] - History History Provided By: Patient, Medical Record - Medical History Medical History: Medical History (Last Reviewed 06/30/18 @ 13:46 by ZACH Santana) Acute paranoia HTN (hypertension) Hallucinations, visual Hypercholesteremia Kidney stones Parkinson disease - Surgical History Surgical History: Surgical History (Last Reviewed 06/30/18 @ 13:46 by ZACH Santana) History of hernia repair H/O lithotripsy History of arthroscopic knee surgery History of cholecystectomy History of umbilical hernia repair - Family History Family History: Family History (Last Updated 06/30/18 @ 13:47 by ZACH Santana) Other Cancer Diabetes - Tobacco History Smoking Status: Never smoker - Alcohol History How Often Do You Have a Drink Containing Alcohol: Never - Substance Use History Substance History: No History of Abuse - Immunization History Tetanus Immunization: >5 Years Hx Influenza Vaccine This Season: No Quality Measures - Psychiatric History Psychological trauma history: Denies Violence risk to others in the last 6 months: Low Violence risk to self in the last 6 months: Elevated due to recent suicidal statement - Substance Abuse History Drug or alcohol use in the past 12 months: Denies - Patient Strengths Patient's strengths (minimum of 2): Verbal and communicative Medications and Allergies Active Medications: Active Medications Al Hydrox/Mg Hydrox/Simethicone (Mag-Al Plus Susp Liq) 30 ml PO Q6H PRN PRN Reason: DYSPEPSIA Al Hydroxide/Mg Hydroxide (Milk Of Magnesia Liq) 30 ml PO Q12H PRN PRN Reason: Mild Constipation Aspirin (Ecotrin) 81 mg PO DAILY [facility] Last Admin: 06/30/18 08:51 Dose: 81 mg Bisacodyl (Dulcolax Supp) 10 mg RECTAL DAILY PRN PRN Reason: SEVERE CONSITIPATION Bupropion HCl (Wellbutrin Sr) 150 mg PO DAILY [facility] Last Admin: 06/30/18 08:52 Dose: 150 mg Carbidopa/Levodopa (Sinemet 25/100 Mg) 1 tab PO TID [facility] Last Admin: 06/30/18 08:52 Dose: 1 tab Diphenhydramine HCl (Benadryl) 50 mg PO HS PRN PRN Reason: INSOMNIA Lactulose (Lactulose Liq) 30 ml PO DAILY PRN PRN Reason: SEVERE CONSITIPATION Lorazepam (Ativan) 1 mg PO Q6H PRN PRN Reason: ANXIETY Losartan Potassium (Cozaar) 100 mg PO DAILY [facility] Last Admin: 06/30/18 08:52 Dose: 100 mg Metoprolol Tartrate (Lopressor) 100 mg PO BID [facility] Last Admin: 06/30/18 08:53 Dose: 100 mg Pramipexole Dihydrochloride (Mirapex) 0.5 mg PO TID [facility] Last Admin: 06/30/18 08:55 Dose: Not Given Pravastatin Sodium (Pravachol) 80 mg PO QPM [facility] Last Admin: 06/29/18 23:10 Dose: 80 mg Quetiapine Fumarate (Seroquel) 50 mg PO HS [facility] Sennosides (Senokot) 17.2 mg PO Q12H PRN PRN Reason: Moderate Constipation Allergies Allergy/AdvReac Type Severity Reaction Status Date / Time No Known Allergies Allergy Verified 06/29/18 10:54 Home Medications Medication Instructions Recorded Confirmed Type aspirin [Aspirin Low Dose] 81 mg PO DAILY 06/29/18 06/29/18 History bupropion HCl 150 mg PO DAILY 06/29/18 06/29/18 History carbidopa-levodopa 1 tab PO TID 06/29/18 06/29/18 History losartan 100 mg PO DAILY 06/29/18 06/29/18 History metoprolol tartrate 100 mg PO BID 06/29/18 06/29/18 History pimavanserin [Nuplazid] 34 mg PO DAILY 06/29/18 06/29/18 History pramipexole 0.5 mg PO TID 06/29/18 06/29/18 History simvastatin 40 mg PO QPM 06/29/18 06/29/18 History Results - Labs CBC & Chem 7: 06/29/18 11:24 06/30/18 08:40 Labs: Laboratory Results - last 24 hr 06/29/18 06/29/18 06/29/18 11:24 11:30 11:30 WBC 7.2 RBC 5.34 Hgb 15.7 Hct 47.5 MCV 88.9 MCH 29.3 MCHC 33.0 RDW 13.4 Plt Count 208 MPV 9.3 Neut % (Auto) 76.9 H Lymph % (Auto) 14.6 [place] % (Auto) 6.3 Eos % (Auto) 1.5 Baso % (Auto) 0.7 Neut # (Auto) 5.5 Lymph # (Auto) 1.1 [place] # (Auto) 0.5 Eos # (Auto) 0.1 Baso # (Auto) 0.1 WBC Differential . Differential Comment Auto diff final Sodium Potassium Chloride Carbon Dioxide Anion Gap BUN Creatinine Estimated GFR Random Glucose Calcium Total Bilirubin AST ALT Alkaline Phosphatase Total Protein Albumin Triglycerides Cholesterol LDL Cholesterol, Calc HDL Cholesterol Cholesterol/HDL Ratio Vitamin B12 TSH Free T4 Urine Color Yellow Urine Clarity Hazy H Urine pH 6.0 Ur Specific [place] 1.016 Urine Protein Negative Urine Glucose (UA) Negative Urine Ketones Trace H Urine Occult Blood Moderate H Urine Nitrate Negative Urine Bilirubin Negative Urine Urobilinogen Less than 2 Ur Leukocyte Esterase Small H Urine RBC 23 H Urine WBC 40 H Ur Squamous Epith Cells 1 Urine Mucus Many H Micro UA Comment Culture indicated Ur Microscopic Review Not Reportable Urine Culture Comments Culture indicated Urine Opiates Screen Neg Ur Barbiturates Screen Neg Ur Amphetamines Screen Neg U Benzodiazepines Scrn Neg Urine Cocaine Screen Neg U Cannabinoids Screen Neg Serum Alcohol Rheumatoid Factor Scrn Rheumatoid Factor Titer 06/29/18 06/30/18 06/30/18 12:20 08:40 08:40 WBC RBC Hgb Hct MCV MCH MCHC RDW Plt Count MPV Neut % (Auto) Lymph % (Auto) [place] % (Auto) Eos % (Auto) Baso % (Auto) Neut # (Auto) Lymph # (Auto) [place] # (Auto) Eos # (Auto) Baso # (Auto) WBC Differential Differential Comment Sodium 144 140 Potassium 4.0 3.7 Chloride 107 107 Carbon Dioxide 27.5 24.3 Anion Gap 10 9 BUN 15 17 Creatinine 0.78 0.92 Estimated GFR Greater than 89 85 L Random Glucose 92 151 H Calcium 8.5 8.8 Total Bilirubin 0.7 AST 14 L ALT 11 L Alkaline Phosphatase 75 Total Protein 7.3 Albumin 3.7 Triglycerides 83 Cholesterol 169 LDL Cholesterol, Calc 107 H HDL Cholesterol 45.0 Cholesterol/HDL Ratio 3.75 Vitamin B12 185 L TSH 1.020 Free T4 1.13 Urine Color Urine Clarity Urine pH Ur Specific [place] Urine Protein Urine Glucose (UA) Urine Ketones Urine Occult Blood Urine Nitrate Urine Bilirubin Urine Urobilinogen Ur Leukocyte Esterase Urine RBC Urine WBC Ur Squamous Epith Cells Urine Mucus Micro UA Comment Ur Microscopic Review Urine Culture Comments Urine Opiates Screen Ur Barbiturates Screen Ur Amphetamines Screen U Benzodiazepines Scrn Urine Cocaine Screen U Cannabinoids Screen Serum Alcohol Less than 3 Rheumatoid Factor Scrn Negative Rheumatoid Factor Titer Not Reportable Exam Vital signs: Vital Signs 06/29/18 16:43 06/29/18 18:00 06/29/18 20:34 Temperature 97.2 F L Pulse Rate 78 63 Respiratory Rate 20 22 Blood Pressure 152/87 H 180/91 H 140/90 Pulse Oximetry 97 97 06/30/18 06:00 Temperature 98.3 F Pulse Rate 64 Respiratory Rate 18 Blood Pressure 110/58 L Pulse Oximetry 95 Intake & Output 06/29/18 06/30/18 06/30/18 18:59 06:59 18:59 Intake Total 360 / 360 Balance 360 / 360 Weight 138.346 kg Intake: Oral 360 / 360 - Constitutional mild distress, cooperative Mental Status Examination Appearance: Well dressed/well groomed Consciousness: Alert Orientation: x4 Motor Activity: Other (Tremors noted) Speech: Unremarkable Language: Adequate Fund of Knowledge: Adequate Attention and Concentration: Adequate Memory: Unremarkable Mood: Other ("Frustrated") Affect: Appropriate Thought Process & Associations: Intact, Logical, Goal directed Thought Content: Hallucinations Hallucination Type: Visual Delusion Type: None Suicidal Ideation: No Suicidal Plan: No Suicidal Intention: No Homicidal Ideation: No Homicidal Plan: No Homicidal Intention: No Insight: Adequate Judgment: Adequate Assessment and Plan - Assessment (1) Unspecified psychosis Code(s): F29 - Unspecified psychosis not due to a substance or known physiological condition Status: Acute (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 Patient recently started on Nuplazid which patient had reported to worsening of hallucinations. We will discontinue this medication and start patient on quetiapine 50 mg p.o. at bedtime with upper titration for psychosis. Continue rest of medications. We will continue recommendations as per primary medical team as well as neurology consult input. We will continue to monitor mood and behavior. Discharge planning a progress. Justification for Continued Inpatient Stay: At risk of further decompensation a lower level of care. (1) Unspecified psychosis Qualifiers: Psychosis type: unspecified psychosis type Qualified Code(s): F29 - Unspecified psychosis not due to a substance or known physiological condition
[2018-06-30] MEDS ORDERED: Gadobutrol PF 2 MMOL/2 ML Vial (for RAD) IV.SIG ONE (12:52)
--- NOTE | 2018-06-30 12:59 | MR ---
EXAM DATE: 06/30/2018 11:06 AM EDT AGE/SEX: 57 years / Male INDICATIONS: . Psychosis. CLINICAL DATA: This is the patient's subsequent encounter. Patient reports that signs and symptoms h ave been present for 2 days and indicates a pain score of 0/10. MEDICAL/SURGICAL HISTORY: Hypertension. Hypercholesterolemia. Cholecystectomy. Umbilical remedios ia repair. Lt knee COMPARISON: . TECHNIQUE: Multiplanar, multisequence examination of the brain was performed without and with 13.5 ml Gadavist (gadobutrol) contrast as a single exam dose. FINDINGS: Cerebrum: Mild cerebral atrophy is noted. No evidence of midline shift, mass lesion, hemorrhage or a cute infarction. No extraaxial fluid collections are seen. The pituitary gland and suprasellar cist lizz are normal in configuration. White Matter: Minimal scattered periventricular and subcortical white matter small vessel ischemic c hanges are noted bilaterally. Posterior Fossa: The cerebellum and brainstem are intact. The 4th ventricle is midline. The cerebel lopontine angle is unremarkable. The cerebellar tonsils are normal in position. Diffusion Imaging: No focal areas of restricted diffusion are seen. No evidence of acute infarction . Extracranial: The visualized portions of the orbits and paranasal sinuses are unremarkable. Post Contrast: No abnormal areas of parenchymal or dural enhancement. No evidence of blood-brain ba rrier breakdown. CONCLUSION: 1. No acute infarct, acute hemorrhage, midline shift or extra-axial fluid collections. 2. Minimal scattered periventricular and subcortical white matter small vessel ischemic changes bila terally. 3. Mild cerebral atrophy. Electronically signed by: He Bernabe MD 06/30/2018 12:58 PM EDT
--- NOTE | 2018-06-30 15:39 | ECG ---
Date Performed: 06/30/2018 Time Performed: 10:08:39 PTAGE: 57 years EKG: Sinus rhythm NORMAL ECG PREVIOUS TRACING : 09/24/1995 11.07 Since the previous tracing, no significant change noted DOCTOR: Rody Gonzalez Interpretating Date/Time 06/30/2018 15:38:55
[2018-06-30 18:05] LABS: Hemoglobin A1c 5.6 % (4.3-6.0)
[2018-06-30] MEDS ORDERED: QUEtiapine 25 MG Tablet PO SCH (21:00)
--- NOTE | 2018-06-30 21:12 | MB ---
cc: Cipriano Trevizo MD DATE: 06/30/2018 HISTORY OF PRESENT ILLNESS: Parkinson's, hallucinations, Sinemet. He is noted to be asleep at the start of the recording. Recording overall is synchronous and symmetric, some diffuse 6 Hz slowing is seen with sleep. No epileptiform or seizure activity is noted. Occasional vertex sharp wave is seen. There is not very much stage II sleep. Photic stimulation is performed without significant posterior driving. Hyperventilation is performed at the end of recording without change in the background. IMPRESSION: Diffuse slowing consistent with a mild diffuse encephalopathy, but no focal abnormality was noted. No seizure activity is seen. Cipriano Trevizo MD DJM/sj , 07:41 PM , 07:45 PM
[2018-06-30] MEDS: LORazepam 1 MG Tablet PO PRN (21:57)
--- NOTE | 2018-07-01 07:20 | P.PNNEU ---
Subjective Subjective Comments: lot of paranoia and hallucination yest Active Medications: Active Medications Al Hydrox/Mg Hydrox/Simethicone (Mag-Al Plus Susp Liq) 30 ml PO Q6H PRN PRN Reason: DYSPEPSIA Al Hydroxide/Mg Hydroxide (Milk Of Magnesia Liq) 30 ml PO Q12H PRN PRN Reason: Mild Constipation Aspirin (Ecotrin) 81 mg PO DAILY [facility] Last Admin: 06/30/18 08:51 Dose: 81 mg Bisacodyl (Dulcolax Supp) 10 mg RECTAL DAILY PRN PRN Reason: SEVERE CONSITIPATION Bupropion HCl (Wellbutrin Sr) 150 mg PO DAILY [facility] Last Admin: 06/30/18 08:52 Dose: 150 mg Diphenhydramine HCl (Benadryl) 50 mg PO HS PRN PRN Reason: INSOMNIA Last Admin: 06/30/18 21:57 Dose: 50 mg Lactulose (Lactulose Liq) 30 ml PO DAILY PRN PRN Reason: SEVERE CONSITIPATION Lorazepam (Ativan) 1 mg PO Q6H PRN PRN Reason: ANXIETY Last Admin: 06/30/18 21:57 Dose: 1 mg Losartan Potassium (Cozaar) 100 mg PO DAILY [facility] Last Admin: 06/30/18 08:52 Dose: 100 mg Metoprolol Tartrate (Lopressor) 100 mg PO BID [facility] Last Admin: 06/30/18 21:57 Dose: 100 mg Pravastatin Sodium (Pravachol) 80 mg PO QPM [facility] Last Admin: 06/30/18 17:06 Dose: 80 mg Quetiapine Fumarate (Seroquel) 50 mg PO HS [facility] Last Admin: 06/30/18 21:57 Dose: 50 mg Sennosides (Senokot) 17.2 mg PO Q12H PRN PRN Reason: Moderate Constipation Allergies/Adverse Reactions: Allergies Allergy/AdvReac Type Severity Reaction Status Date / Time No Known Allergies Allergy Verified 06/29/18 10:54 Physical Exam Vital signs: Vital Signs 06/30/18 18:00 07/01/18 06:19 Temperature 97.7 F 97.2 F L Pulse Rate 70 51 L Respiratory Rate 18 16 Blood Pressure 134/75 105/71 Pulse Oximetry 95 96 Intake & Output 06/30/18 07/01/18 07/01/18 18:59 06:59 18:59 Intake Total 1440 / 1440 600 / 600 Balance 1440 / 1440 600 / 600 Intake: Oral 1440 / 1440 600 / 600 Other: # Voids 2 1 # Bowel Movements 0 Narrative: not shuffling moving ok a little lightheaded standing slept okl Objective Laboratory Results - last 24 hr 06/30/18 06/30/18 06/30/18 08:40 08:40 08:40 ESR Sodium 140 Potassium 3.7 Chloride 107 Carbon Dioxide 24.3 Anion Gap 9 BUN 17 Creatinine 0.92 Estimated GFR 85 L Random Glucose 151 H Hemoglobin A1c 5.6 Calcium 8.8 Triglycerides 83 Cholesterol 169 LDL Cholesterol, Calc 107 H HDL Cholesterol 45.0 Cholesterol/HDL Ratio 3.75 Vitamin B12 185 L Free T4 1.13 Rheumatoid Factor Scrn Negative Rheumatoid Factor Titer Not Reportable 06/30/18 11:04 ESR 1 Sodium Potassium Chloride Carbon Dioxide Anion Gap BUN Creatinine Estimated GFR Random Glucose Hemoglobin A1c Calcium Triglycerides Cholesterol LDL Cholesterol, Calc HDL Cholesterol Cholesterol/HDL Ratio Vitamin B12 Free T4 Rheumatoid Factor Scrn Rheumatoid Factor Titer Microbiology 06/29/18 11:30 Urine Culture - Final Clean Catch Urine 10-50,000 cfu/mL mixed gram positive sudha (probable contaminants) Review/Management - Review/Management Plan: imp mri and eeg and labs ok x b12 low inj and mvi plan is hold sinemet to see if hallucinations stop neuro will fu over weekend make sure he does not freeze or fall he can put up with some drooloing for a few days with trial off med i dw him check standing bp
[2018-07-01 08:55] LABS: CKMB Percent 0.8 % (0.0-4.0); Creatine Kinase MB 2.7 ng/mL (0.5-3.6)
[2018-07-01] MEDS: Metoprolol Tartrate 50 MG Tablet PO SCH ×2 (09:19→21:27)
[2018-07-01] MEDS: buPROPion 150 MG 12 HR Tablet PO SCH (09:20)
--- NOTE | 2018-07-01 11:00 | P.PNPSY ---
Subjective Remarks: Patient seen for follow up; chart reviewed. Discussion with nursing staff reported that patient reported continued visual hallucinations, was seen by neurology which Sinemet was but cooperative with staff. Patient was found sitting hospital chair noted B, cooperative. Patient states that he is feeling "good" reports having received Ativan and Benadryl last evening which helped and he felt rested and slept well. Patient reports that last night he continued to hear sounds endorse closing but was unsure whether it was on the unit from other rooms. Patient mentions having seen rings outside of the hospital as well as a lizard on top of the door "took it as a demonic thing" along with seeing a doll in the doorway. Patient states also having seen a lady in white with babies in the corner" which lasted minutes. Patient this time denies any visual hallucinations during interview. Patient mentions wanting to get rid of these hallucinations so he may return back home with his . Review of Systems All other systems reviewed negative except as stated in HPI Mental Status Examination Appearance: Well dressed/well groomed Consciousness: Alert Orientation: x4 Motor Activity: Other (Tremors noted) Speech: Unremarkable Language: Adequate Fund of Knowledge: Adequate Attention and Concentration: Adequate Memory: Unremarkable Mood: Other ("Good") Affect: Appropriate Thought Process & Associations: Intact, Logical, Goal directed Thought Content: Hallucinations Hallucination Type: Visual Delusion Type: None Suicidal Ideation: No Suicidal Plan: No Suicidal Intention: No Homicidal Ideation: No Homicidal Plan: No Homicidal Intention: No Insight: Adequate Judgment: Adequate Assessment and Plan - Assessment (1) Unspecified psychosis Code(s): F29 - Unspecified psychosis not due to a substance or known physiological condition Status: Acute (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 Patient with treatment modifications from neurologist, input appreciated. Hospitalist input appreciated. We will continue to titrate quetiapine to 100 mg p.o. at bedtime for psychosis. Continue to monitor mood and behavior. Discharge planning in progress. Justification for Continued Inpatient Stay: At risk of further decompensation a lower level of care. (1) Unspecified psychosis Qualifiers: Psychosis type: unspecified psychosis type Qualified Code(s): F29 - Unspecified psychosis not due to a substance or known physiological condition
[2018-07-01 12:02] LABS: Anti-Nuclear Antibody Screen Neg (Neg)
--- NOTE | 2018-07-01 13:25 | P.PN ---
Subjective Interval history: Follow-up for hallucinations, acute change in mental status.: Patient had a rough night, was given Ativan and was able to finally sleep. Remains hypervigilant, initially he indicated that visual hallucinations were better however after I spoke to his he admitted that last night he had visions that were extremely fearful,describes "demonic" visions. This morning, when [employer] was going to do orthostatics, he was afraid that he was going to be taken in a "space ship". I reassured him and reoriented and allowed [employer] to do orthostatics. Denies any CP, no sob, no n/v/d. No dizziness, no double vision, no headaches. Physical Exam Vital signs: Vital Signs 06/30/18 18:00 07/01/18 06:19 Temperature 97.7 F 97.2 F L Pulse Rate 70 51 L Respiratory Rate 18 16 Blood Pressure 134/75 105/71 Pulse Oximetry 95 96 Intake & Output 06/30/18 07/01/18 07/01/18 18:59 06:59 18:59 Intake Total 1440 / 1440 600 / 600 240 / 240 Balance 1440 / 1440 600 / 600 240 / 240 Intake: Oral 1440 / 1440 600 / 600 240 / 240 Other: # Voids 2 1 Date of Last Bowel Movement 07/01/18 # Bowel Movements 0 Narrative: GENERAL: 57-year-old obese male, no apparent distress. SKIN: Warm and dry. HEAD: Atraumatic. Normocephalic. EYES: Pupils equal and round. No scleral icterus. No injection or drainage. ENT: No nasal bleeding or discharge. Mucous membranes pink and moist. NECK: Trachea midline. No JVD. CARDIOVASCULAR: Regular rate and rhythm. RESPIRATORY: No accessory muscle use. Clear to auscultation. Breath sounds equal bilaterally. GASTROINTESTINAL: Abdomen soft, non-tender, nondistended. Hepatic and splenic margins not palpable. Incision noted below umbilicus, healing well. Laparoscopic incisions from recent cholecystectomy, healing well, no drainage, edges well approximated. MUSCULOSKELETAL: Extremities without clubbing, cyanosis, or edema. No obvious deformities. NEUROLOGICAL: Awake, alert oriented x3. Following commands appropriately. No focal deficits. Left Mild resting hand tremor. PSYCHIATRIC: Appropriate mood and affect; insight and judgment normal. Results - Labs CBC & Chem 7: 06/29/18 11:24 10/04/18 08:40 Laboratory Results - last 24 hr 06/30/18 06/30/18 07/01/18 08:40 11:04 07:57 Hemoglobin A1c 5.6 Total Creatine Kinase 351 H CK-MB (CK-2) 2.7 CK-MB (CK-2) % 0.8 EDWIN Screen Neg RPR Nonreactive Microbiology 06/29/18 11:30 Clean Catch Urine Urine Culture - Final 10-50,000 cfu/mL mixed gram positive sudha (probable contaminants) Assessment and Plan - Assessment (1) Unspecified psychosis Code(s): F29 - Unspecified psychosis not due to a substance or known physiological condition Status: Acute (2) Hallucination, visual Code(s): R44.1 - Visual hallucinations Status: Acute (3) Hypertension Code(s): I10 - Essential (primary) hypertension Status: Chronic (4) Parkinson disease Code(s): G20 - Parkinson's disease Status: Chronic (5) Hyperlipemia Code(s): E78.5 - Hyperlipidemia, unspecified Status: Chronic (6) Anxiety Code(s): F41.9 - Anxiety disorder, unspecified Status: Chronic - Plan 57-year-old male presented with complaint of visual hallucinations since having surgeries in April. History of Parkinson's disease, recently started on Nuplazid. Currently taking Sinemet and pramipexole. Verbalized feeling despair , voiced suicidal thoughts. Acute psychosis, visual hallucinations. History of Parkinson's disease, recently started on Nuplazid. Taking Sinemet and Pramipexole. Etiology of visual hallucinations unclear at this time, possibly medication induced, possibly associated with Parkinson's disease -appreciate neurology input -EEG mild encephalopathy. -Brain MRI negative. -Neurology stopped pramipexole, Sinemet and Nuplazid. Pt. typical PD sx are some drooling and resting tremor. -B12 low, has been given 1000mcg IM x1 as well as MVI -TSH okay -Immune workup negative -Continue to monitor off PD medications, continue with Ativan as needed. Hypertension Continue Cozaar and metoprolol HLP Continue Pravachol Anxiety -Continue Wellbutrin S/P cholecystectomy, umbilical hernia repair and ERCP Stable, tolerating diet well -continue to monitor. Asymptomatic bacteriuria, received 1 dose of Bactrim in the emergency room At this time we will hold off on continuing antibiotics -Monitor for any fever, urinary symptoms DVT prophylaxis not required, patient is ambulatory. 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
[2018-07-01] MEDS ORDERED: QUEtiapine 100 MG Tablet PO SCH (21:00)
[2018-07-01] MEDS: LORazepam 1 MG Tablet PO PRN (21:28)
--- NOTE | 2018-07-02 08:06 | P.PNNEU ---
Subjective Active Medications: Active Medications Al Hydrox/Mg Hydrox/Simethicone (Mag-Al Plus Susp Liq) 30 ml PO Q6H PRN PRN Reason: DYSPEPSIA Al Hydroxide/Mg Hydroxide (Milk Of Magnesia Liq) 30 ml PO Q12H PRN PRN Reason: Mild Constipation Aspirin (Ecotrin) 81 mg PO DAILY [facility] Last Admin: 07/01/18 09:19 Dose: 81 mg Bisacodyl (Dulcolax Supp) 10 mg RECTAL DAILY PRN PRN Reason: SEVERE CONSITIPATION Bupropion HCl (Wellbutrin Sr) 150 mg PO DAILY [facility] Last Admin: 07/01/18 09:20 Dose: 150 mg Diphenhydramine HCl (Benadryl) 50 mg PO HS PRN PRN Reason: INSOMNIA Last Admin: 06/30/18 21:57 Dose: 50 mg Lactulose (Lactulose Liq) 30 ml PO DAILY PRN PRN Reason: SEVERE CONSITIPATION Lorazepam (Ativan) 1 mg PO Q6H PRN PRN Reason: ANXIETY Last Admin: 07/01/18 21:28 Dose: 1 mg Losartan Potassium (Cozaar) 100 mg PO DAILY [facility] Last Admin: 07/01/18 09:15 Dose: 100 mg Metoprolol Tartrate (Lopressor) 100 mg PO BID [facility] Last Admin: 07/01/18 21:27 Dose: 100 mg Multivitamins (Theragran) 1 tab PO DAILY [facility] Last Admin: 07/01/18 09:20 Dose: 1 tab Pravastatin Sodium (Pravachol) 80 mg PO QPM [facility] Last Admin: 07/01/18 17:17 Dose: 80 mg Quetiapine Fumarate (Seroquel) 100 mg PO HS [facility] Last Admin: 07/01/18 21:28 Dose: 100 mg Sennosides (Senokot) 17.2 mg PO Q12H PRN PRN Reason: Moderate Constipation Allergies/Adverse Reactions: Allergies Allergy/AdvReac Type Severity Reaction Status Date / Time No Known Allergies Allergy Verified 06/29/18 10:54 Physical Exam Vital signs: Vital Signs 07/01/18 17:36 07/02/18 05:59 Temperature 98.2 F 97.6 F Pulse Rate 83 62 Respiratory Rate 17 16 Blood Pressure 131/63 110/60 Pulse Oximetry 97 96 Intake & Output 10/02/1107/02/18 07/02/18 18:59 06:59 18:59 Intake Total 1200 / 1200 720 / 720 Balance 1200 / 1200 720 / 720 Intake: Oral 1200 / 1200 720 / 720 Other: # Voids 1 Date of Last Bowel Movement 07/01/18 Objective Laboratory Results - last 24 hr 06/30/18 07/01/18 11:04 07:57 Total Creatine Kinase 351 H CK-MB (CK-2) 2.7 CK-MB (CK-2) % 0.8 EDWIN Screen Neg RPR Nonreactive Review/Management - Review/Management Plan: imp mri and eeg and labs ok x b12 low inj and mvi plan is hold sinemet to see if hallucinations stop neuro will fu over weekend make sure he does not freeze or fall he can put up with some drooloing for a few days with trial off med i dw him check standing bp
--- NOTE | 2018-07-02 08:41 | P.PNPSY ---
Subjective Remarks: Patient seen for follow, chart reviewed. Discussion nursing staff reported the patient had reported less visual hallucination and slept well last night. Patient was found sitting hospital chair noted B, cooperative. Patient states that he slept much better last evening, continues to feel little anxious last night but felt he rested throughout the night. Patient reports his mood is "good", looking forward to seeing his today. Patient states that he continues to have visual hallucinations which is mostly outside of his from but are lessening. Review of Systems All other systems reviewed negative except as stated in HPI Mental Status Examination Appearance: Well dressed/well groomed Consciousness: Alert Orientation: x4 Motor Activity: Other (Tremors noted) Speech: Unremarkable Language: Adequate Fund of Knowledge: Adequate Attention and Concentration: Adequate Memory: Unremarkable Mood: Other ("Good") Affect: Appropriate Thought Process & Associations: Intact, Logical, Goal directed Thought Content: Hallucinations Hallucination Type: Visual Delusion Type: None Suicidal Ideation: No Suicidal Plan: No Suicidal Intention: No Homicidal Ideation: No Homicidal Plan: No Homicidal Intention: No Insight: Adequate Judgment: Adequate Assessment and Plan - Assessment (1) Unspecified psychosis Code(s): F29 - Unspecified psychosis not due to a substance or known physiological condition Status: Acute (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 We will continue to titrate quetiapine to 150 mg p.o. at bedtime, continue recommendations as per neurology and primary medical team. Will monitor mood and behavior. Discharge planning in progress. Justification for Continued Inpatient Stay: At risk of further decompensation a lower level of care. (1) Unspecified psychosis Qualifiers: Psychosis type: unspecified psychosis type Qualified Code(s): F29 - Unspecified psychosis not due to a substance or known physiological condition
[2018-07-02] MEDS: buPROPion 150 MG 12 HR Tablet PO SCH (09:30)
[2018-07-02] MEDS: Metoprolol Tartrate 50 MG Tablet PO SCH ×2 (09:30→20:35)
--- NOTE | 2018-07-02 13:01 | P.PNNEU ---
Subjective Subjective Comments: Patient seen with no family at bed side He walks around with no difficulty He states that drooling has significantly diminished, " I am more restful today ", hallucinations have remarkably diminished. He denies " freezing", no reported postural dizziness or lightheadedness. Patient reports overall improvement in his symptoms, and happy about his clinical progress Active Medications: Active Medications Al Hydrox/Mg Hydrox/Simethicone (Mag-Al Plus Susp Liq) 30 ml PO Q6H PRN PRN Reason: DYSPEPSIA Al Hydroxide/Mg Hydroxide (Milk Of Magnesia Liq) 30 ml PO Q12H PRN PRN Reason: Mild Constipation Aspirin (Ecotrin) 81 mg PO DAILY [facility] Last Admin: 07/02/18 09:30 Dose: 81 mg Bisacodyl (Dulcolax Supp) 10 mg RECTAL DAILY PRN PRN Reason: SEVERE CONSITIPATION Bupropion HCl (Wellbutrin Sr) 150 mg PO DAILY [facility] Last Admin: 07/02/18 09:30 Dose: 150 mg Diphenhydramine HCl (Benadryl) 50 mg PO HS PRN PRN Reason: INSOMNIA Last Admin: 06/30/18 21:57 Dose: 50 mg Lactulose (Lactulose Liq) 30 ml PO DAILY PRN PRN Reason: SEVERE CONSITIPATION Lorazepam (Ativan) 1 mg PO Q6H PRN PRN Reason: ANXIETY Last Admin: 07/01/18 21:28 Dose: 1 mg Losartan Potassium (Cozaar) 100 mg PO DAILY [facility] Last Admin: 07/02/18 09:30 Dose: 100 mg Metoprolol Tartrate (Lopressor) 100 mg PO BID [facility] Last Admin: 07/02/18 09:30 Dose: 100 mg Multivitamins (Theragran) 1 tab PO DAILY [facility] Last Admin: 07/02/18 09:31 Dose: 1 tab Pravastatin Sodium (Pravachol) 80 mg PO QPM [facility] Last Admin: 07/01/18 17:17 Dose: 80 mg Quetiapine Fumarate (Seroquel) 150 mg PO HS [facility] Sennosides (Senokot) 17.2 mg PO Q12H PRN PRN Reason: Moderate Constipation Allergies/Adverse Reactions: Allergies Allergy/AdvReac Type Severity Reaction Status Date / Time No Known Allergies Allergy Verified 06/29/18 10:54 Review of Systems All other systems reviewed negative except as stated in HPI Physical Exam Vital signs: Vital Signs 07/01/18 17:36 07/02/18 05:59 Temperature 98.2 F 97.6 F Pulse Rate 83 62 Respiratory Rate 17 16 Blood Pressure 131/63 110/60 Pulse Oximetry 97 96 Intake & Output 07/01/18 07/02/18 07/02/18 18:59 06:59 18:59 Intake Total 1200 / 1200 720 / 720 1919 1920 Balance 1200 / 1200 720 / 720 19190 Intake: Oral 1200 / 1200 720 / 720 1919 Other: # Voids 1 Date of Last Bowel Movement 07/01/18 Narrative: awake, alert, oriented x3 cranial nerve exam is normal, PERLLA, intact EOM, intact and symmetric facial expression, intact hearing left hand tremor, cog wheel rigidity, RUE rigidity mild stooped posture decreased blink rate - Constitutional no acute distress, cooperative - Routine HEENT Exam Head: Present: normocephalic, atraumatic Eye: Present: EOMI, PERRL, normal accommodation ENT: Present: mucous membranes moist - Routine Neck Exam Present: supple, full ROM - Routine Cardiovascular Exam Present: RRR - Routine Abdominal Exam Present: soft, normoactive bowel sounds - Routine Extremities Exam Absent: cyanosis, clubbing, edema - Routine Neurological Exam Present: alert, oriented X3, CN II-XII intact, normal speech Review/Management - Review/Management Plan: Parkinson disease Hallucinations Walking difficulty Reviewed EEG & Brain MRI, were unremarkable - Neuro checks Q4h - Orthostatic vital Q12 h - Continue holding anti-Parkinson's medications. - Discussed at length with patient about plan of care - I cover for the weekend call for Dr. Trevizo, he will follow up on Wednesday.
[2018-07-02] MEDS: LORazepam 1 MG Tablet PO PRN ×2 (13:24→20:35)
--- NOTE | 2018-07-02 13:31 | P.PN ---
Subjective Interval history: Follow-up for hallucinations, acute change in mental status: pt. smiling, sitting by window. Feels better today, states no hallucinations today or overnight. Slept well after Ativan. No drooling, ambulating well. Yesterday had one episode where he felt fearful he went downstairs for ice cream, but overall hallucinations have decreased. No cp, no sob, no fever. Physical Exam Vital signs: Vital Signs 07/01/18 17:36 07/02/18 05:59 Temperature 98.2 F 97.6 F Pulse Rate 83 62 Respiratory Rate 17 16 Blood Pressure 131/63 110/60 Pulse Oximetry 97 96 Intake & Output 07/01/18 07/02/18 07/02/18 18:59 06:59 18:59 Intake Total 1200 / 1200 720 / 720 1919 Balance 1200 / 1200 720 / 720 1919 Intake: Oral 1200 / 1200 720 / 720 1919 Other: # Voids 1 Date of Last Bowel Movement 07/01/18 Narrative: GENERAL: 57-year-old obese male, no apparent distress. SKIN: Warm and dry. HEAD: Atraumatic. Normocephalic. EYES: Pupils equal and round. No scleral icterus. No injection or drainage. ENT: No nasal bleeding or discharge. Mucous membranes pink and moist. NECK: Trachea midline. No JVD. CARDIOVASCULAR: Regular rate and rhythm. RESPIRATORY: No accessory muscle use. Clear to auscultation. Breath sounds equal bilaterally. GASTROINTESTINAL: Abdomen soft, non-tender, nondistended. Hepatic and splenic margins not palpable. Incision noted below umbilicus, healing well. Laparoscopic incisions from recent cholecystectomy, healing well, no drainage, edges well approximated. MUSCULOSKELETAL: Extremities without clubbing, cyanosis, or edema. No obvious deformities. NEUROLOGICAL: Awake, alert oriented x3. Following commands appropriately. No focal deficits. Left Mild resting hand tremor. PSYCHIATRIC: Appropriate mood and affect; insight and judgment normal. Results - Labs CBC & Chem 7: 06/29/18 11:24 06/30/18 08:40 Assessment and Plan - Assessment (1) Unspecified psychosis Code(s): F29 - Unspecified psychosis not due to a substance or known physiological condition Status: Acute (2) Hallucination, visual Code(s): R44.1 - Visual hallucinations Status: Acute (3) Hypertension Code(s): I10 - Essential (primary) hypertension Status: Chronic (4) Parkinson disease Code(s): G20 - Parkinson's disease Status: Chronic (5) Hyperlipemia Code(s): E78.5 - Hyperlipidemia, unspecified Status: Chronic (6) Anxiety Code(s): F41.9 - Anxiety disorder, unspecified Status: Chronic - Plan 57-year-old male presented with complaint of visual hallucinations since having surgeries in April. History of Parkinson's disease, recently started on Nuplazid. Currently taking Sinemet and pramipexole. Verbalized feeling despair , voiced suicidal thoughts. Acute psychosis, visual hallucinations. History of Parkinson's disease, recently started on Nuplazid. Taking Sinemet and Pramipexole. Etiology of visual hallucinations unclear at this time, possibly medication induced, possibly associated with Parkinson's disease -appreciate neurology input -EEG mild encephalopathy. -Brain MRI negative. -Neurology stopped pramipexole, Sinemet and Nuplazid. Pt. typical PD sx are some drooling and resting tremor. -B12 low, has been given 1000mcg IM x1 as well as MVI -TSH okay -Immune workup negative -Continue to monitor off PD medications, continue with Ativan as needed. -pt's symptoms improving off meds, neurology to decide what treatment will be given if any. -orthos done, negative Hypertension Continue Cozaar and metoprolol HLP Continue Pravachol Anxiety -Continue Wellbutrin S/P cholecystectomy, umbilical hernia repair and ERCP Stable, tolerating diet well -continue to monitor. Asymptomatic bacteriuria, received 1 dose of Bactrim in the emergency room At this time we will hold off on continuing antibiotics -Monitor for any fever, urinary symptoms DVT prophylaxis not required, patient is ambulatory. 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
[2018-07-02] MEDS ORDERED: QUEtiapine 100 MG Tablet PO SCH (21:00)
--- NOTE | 2018-07-03 10:17 | P.PNPSY ---
Subjective Remarks: Patient seen for follow, chart reviewed. Discussion with nursing staff reported the patient reported having some fatigue this morning but denied any visual hallucinations. Patient was found sitting in hospital bed noted B, cooperative. Patient states that he slept well last night and feels that he rested well. Patient reports his mood is being "good" reports aggravated by his which went well. Patient states "I think progressing well" denying any difficulty with eating or drinking, bowel movement and tolerating medications well. Patient reports feeling "a little groggy" this morning and reported having a little bit of anxiety yesterday as he does notice objects "moving" but denying any recurrence of visual hallucination as he once did upon admission. Review of Systems All other systems reviewed negative except as stated in HPI Mental Status Examination Appearance: Well dressed/well groomed Consciousness: Alert Orientation: x4 Motor Activity: Other (Tremors noted) Speech: Unremarkable Language: Adequate Fund of Knowledge: Adequate Attention and Concentration: Adequate Memory: Unremarkable Mood: Other ("Good") Affect: Appropriate Thought Process & Associations: Intact, Logical, Goal directed Thought Content: Hallucinations (Lessening) Hallucination Type: Visual (Lessening) Delusion Type: None Suicidal Ideation: No Suicidal Plan: No Suicidal Intention: No Homicidal Ideation: No Homicidal Plan: No Homicidal Intention: No Insight: Adequate Judgment: Adequate Assessment and Plan - Assessment (1) Unspecified psychosis Code(s): F29 - Unspecified psychosis not due to a substance or known physiological condition Status: Acute (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 We will continue to titrate quetiapine to 200 mg at bedtime, continue rest of medications. Continue to monitor mood and behavior. Patient continues to improve patient likely for discharge in 1-2 days. Justification for Continued Inpatient Stay: At risk of further decompensation a lower level of care. (1) Unspecified psychosis Qualifiers: Psychosis type: unspecified psychosis type Qualified Code(s): F29 - Unspecified psychosis not due to a substance or known physiological condition
[2018-07-03] MEDS: Metoprolol Tartrate 50 MG Tablet PO SCH ×2 (10:18→20:42)
[2018-07-03] MEDS: buPROPion 150 MG 12 HR Tablet PO SCH (10:18)
--- NOTE | 2018-07-03 11:19 | P.PN ---
Subjective Interval history: Follow-up for hallucinations, acute change in mental status: Patient seen and examined. Indicates he slept well. No visual hallucinations, still sees occasionally things moving. Eating well. No drooling. Minimal left hand tremor. No chest pain, no shortness of breath, no nausea, no vomiting. No fever. His visited yesterday, indicates that is a source of comfort for him. Physical Exam Vital signs: Vital Signs 07/02/18 17:52 07/03/18 06:01 Temperature 97.5 F L 98.6 F Pulse Rate 73 70 Respiratory Rate 20 20 Blood Pressure 167/83 H 111/55 L Pulse Oximetry 95 93 L Intake & Output 07/02/18 07/03/18 07/03/18 18:59 06:59 18:59 Intake Total 2880 / 2880 960 / 960 Balance 2880 / 2880 960 / 960 Intake: Oral 2880 / 2880 960 / 960 Other: # Voids 1 Narrative: GENERAL: 57-year-old obese male, no apparent distress. SKIN: Warm and dry. HEAD: Atraumatic. Normocephalic. EYES: Pupils equal and round. No scleral icterus. No injection or drainage. ENT: No nasal bleeding or discharge. Mucous membranes pink and moist. NECK: Trachea midline. No JVD. CARDIOVASCULAR: Regular rate and rhythm. RESPIRATORY: No accessory muscle use. Clear to auscultation. Breath sounds equal bilaterally. GASTROINTESTINAL: Abdomen soft, non-tender, nondistended. Hepatic and splenic margins not palpable. Incision noted below umbilicus, healing well. Laparoscopic incisions from recent cholecystectomy, healing well, no drainage, edges well approximated. MUSCULOSKELETAL: Extremities without clubbing, cyanosis, or edema. No obvious deformities. NEUROLOGICAL: Awake, alert oriented x3. Following commands appropriately. No focal deficits. Left Mild resting hand tremor. PSYCHIATRIC: Appropriate mood and affect; insight and judgment normal. Results - Labs CBC & Chem 7: 06/29/18 11:24 06/30/18 08:40 Assessment and Plan - Assessment (1) Unspecified psychosis Code(s): F29 - Unspecified psychosis not due to a substance or known physiological condition Status: Acute (2) Hallucination, visual Code(s): R44.1 - Visual hallucinations Status: Acute (3) Hypertension Code(s): I10 - Essential (primary) hypertension Status: Chronic (4) Parkinson disease Code(s): G20 - Parkinson's disease Status: Chronic (5) Hyperlipemia Code(s): E78.5 - Hyperlipidemia, unspecified Status: Chronic (6) Anxiety Code(s): F41.9 - Anxiety disorder, unspecified Status: Chronic - Plan 57-year-old male presented with complaint of visual hallucinations since having surgeries in April. History of Parkinson's disease, recently started on Nuplazid. Currently taking Sinemet and pramipexole. Verbalized feeling despair , voiced suicidal thoughts. Acute psychosis, visual hallucinations. History of Parkinson's disease, recently started on Nuplazid. Taking Sinemet and Pramipexole. Etiology of visual hallucinations unclear at this time, possibly medication induced, possibly associated with Parkinson's disease -appreciate neurology input -EEG mild encephalopathy. -Brain MRI negative. -Neurology stopped pramipexole, Sinemet and Nuplazid. Pt. typical PD sx are some drooling and resting tremor. -B12 low, has been given 1000mcg IM x1 as well as MVI -TSH okay -Immune workup negative -Continue to monitor off PD medications, continue with Ativan as needed. -pt's symptoms improving off meds, neurology to decide what treatment will be given if any. -orthos done, negative -Psych titrating quetiapine Hypertension Continue Cozaar and metoprolol HLP Continue Pravachol Anxiety -Continue Wellbutrin S/P cholecystectomy, umbilical hernia repair and ERCP Stable, tolerating diet well -continue to monitor. Asymptomatic bacteriuria, received 1 dose of Bactrim in the emergency room At this time we will hold off on continuing antibiotics -Monitor for any fever, urinary symptoms DVT prophylaxis not required, patient is ambulatory. Continue to follow We will follow on neurology input regarding Parkinson's treatment Code Status: Full code Discussed Condition With: RN, patient Discharge Planning: Per psychiatric team (1) Unspecified psychosis Qualifiers: Psychosis type: unspecified psychosis type Qualified Code(s): F29 - Unspecified psychosis not due to a substance or known physiological condition (3) Hypertension Qualifiers: Hypertension type: essential hypertension Qualified Code(s): I10 - Essential (primary) hypertension (5) Hyperlipemia Qualifiers: Hyperlipidemia type: unspecified Qualified Code(s): E78.5 - Hyperlipidemia, unspecified
[2018-07-03 16:33] VITALS: BP 157/88; PULSE 72; RESP 18; TEMP 97.6; O2SAT 99
[2018-07-03] MEDS: LORazepam 1 MG Tablet PO PRN (20:41)
--- NOTE | 2018-07-04 07:51 | P.PNNEU ---
Subjective Subjective Comments: denies hallucination overnoc Active Medications: Active Medications Al Hydrox/Mg Hydrox/Simethicone (Mag-Al Plus Susp Liq) 30 ml PO Q6H PRN PRN Reason: DYSPEPSIA Al Hydroxide/Mg Hydroxide (Milk Of Magnesia Liq) 30 ml PO Q12H PRN PRN Reason: Mild Constipation Aspirin (Ecotrin) 81 mg PO DAILY [facility] Last Admin: 07/03/18 10:18 Dose: 81 mg Bisacodyl (Dulcolax Supp) 10 mg RECTAL DAILY PRN PRN Reason: SEVERE CONSITIPATION Bupropion HCl (Wellbutrin Sr) 150 mg PO DAILY [facility] Last Admin: 07/03/18 10:18 Dose: 150 mg Diphenhydramine HCl (Benadryl) 50 mg PO HS PRN PRN Reason: INSOMNIA Last Admin: 06/30/18 21:57 Dose: 50 mg Lactulose (Lactulose Liq) 30 ml PO DAILY PRN PRN Reason: SEVERE CONSITIPATION Lorazepam (Ativan) 1 mg PO Q6H PRN PRN Reason: ANXIETY Last Admin: 07/03/18 20:41 Dose: 1 mg Losartan Potassium (Cozaar) 100 mg PO DAILY [facility] Last Admin: 07/03/18 10:18 Dose: 100 mg Metoprolol Tartrate (Lopressor) 100 mg PO BID [facility] Last Admin: 07/03/18 20:42 Dose: 100 mg Multivitamins (Theragran) 1 tab PO DAILY [facility] Last Admin: 07/03/18 10:18 Dose: 1 tab Pravastatin Sodium (Pravachol) 80 mg PO QPM [facility] Last Admin: 07/03/18 18:21 Dose: 80 mg Quetiapine Fumarate (Seroquel) 200 mg PO HS [facility] Last Admin: 07/03/18 20:43 Dose: 200 mg Sennosides (Senokot) 17.2 mg PO Q12H PRN PRN Reason: Moderate Constipation Allergies/Adverse Reactions: Allergies Allergy/AdvReac Type Severity Reaction Status Date / Time No Known Allergies Allergy Verified 06/29/18 10:54 Physical Exam Vital signs: Vital Signs 07/03/18 16:32 Temperature 97.6 F Pulse Rate 72 Respiratory Rate 18 Blood Pressure 157/88 H Pulse Oximetry 99 Intake & Output 07/03/18 07/04/18 07/04/18 18:59 06:59 18:59 Intake Total 960 / 960 480 / 480 Balance 960 / 960 480 / 480 Intake: Oral 960 / 960 480 / 480 Other: # Voids 2 2 Date of Last Bowel Movement 07/01/18 Narrative: doing fine off sinemet hallucinations a lot better nl tone not drooling Review/Management - Review/Management Plan: Parkinson disease Hallucinations Walking difficulty Reviewed EEG & Brain MRI, were unremarkable - Neuro checks Q4h - Orthostatic vital Q12 h - Continue holding anti-Parkinson's medications. - Discussed at length with patient about plan of care - I cover for the weekend call for Dr. Trevizo, he will follow up on Wednesday. 07/04/18 plan keep off pd meds dc wellbutrin due to sz risk could dc neurowise and fu office i dw no hx depression
--- NOTE | 2018-07-04 09:50 | P.TTN ---
- Patient Problems Problems: 1. Discharge planning 2. Medication compliance 3. Knowledge deficit 4. Lack of coping skills - Progress Toward Goals Provider Present: Dr. Dilan Daniel Provider Input: 07/04/18: Pt expected to discharge home with spouse, when pt stable. Psychiatric Counselors Present: Jim Etienne Jr., [facility] Psychiatric Therapist Input: 07/04/18: Pt is new to this therapist. Group Spec/RT/OT/KNUTSON Present: ZENIA Ibarra, Oswaldo Dimas, OT Group Spec/RT/OT/KNUTSON Input: 07/04/18: Pt attended first group on Tuesday 07/03, without incident. Additional Input: 07/04/18: Pt expected to return to home with spouse when pt is stable. - Documentation Teaching Recipient: Patient
[2018-07-04] MEDS: Metoprolol Tartrate 50 MG Tablet PO SCH (10:05)
--- NOTE | 2018-07-04 12:38 | P.PN ---
Subjective Interval history: Follow-up for hallucinations, acute change in mental status: Patient seen and examined. Smiling, gait steady, minimal left hand tremor. No drooling. No visual hallucinations, doesn't does not see any objects moving. Hoping that he can go home. He has been sleeping well after Ativan is given. Request that I speak to his . He was taken off Wellbutrin this morning. Spoke to neurologist this morning, he has clear for discharge from his standpoint Physical Exam Vital signs: Vital Signs 07/03/18 16:32 Temperature 97.6 F Pulse Rate 72 Respiratory Rate 18 Blood Pressure 157/88 H Pulse Oximetry 99 Intake & Output 07/03/18 07/04/18 07/04/18 18:59 06:59 18:59 Intake Total 960 / 960 480 / 480 1200 / 1200 Balance 960 / 960 480 / 480 1200 / 1200 Intake: Oral 960 / 960 480 / 480 1200 / 1200 Other: # Voids 2 2 Date of Last Bowel Movement 07/01/18 Narrative: GENERAL: 57-year-old obese male, no apparent distress. SKIN: Warm and dry. HEAD: Atraumatic. Normocephalic. EYES: Pupils equal and round. No scleral icterus. No injection or drainage. ENT: No nasal bleeding or discharge. Mucous membranes pink and moist. NECK: Trachea midline. No JVD. CARDIOVASCULAR: Regular rate and rhythm. RESPIRATORY: No accessory muscle use. Clear to auscultation. Breath sounds equal bilaterally. GASTROINTESTINAL: Abdomen soft, non-tender, nondistended. Hepatic and splenic margins not palpable. Incision noted below umbilicus, healing well. Laparoscopic incisions from recent cholecystectomy, healing well, no drainage, edges well approximated. MUSCULOSKELETAL: Extremities without clubbing, cyanosis, or edema. No obvious deformities. NEUROLOGICAL: Awake, alert oriented x3. Following commands appropriately. No focal deficits. Left Mild resting hand tremor. PSYCHIATRIC: Appropriate mood and affect; insight and judgment normal. Results - Labs CBC & Chem 7: 06/29/18 11:24 06/30/18 08:40 Assessment and Plan - Assessment (1) Unspecified psychosis Code(s): F29 - Unspecified psychosis not due to a substance or known physiological condition Status: Acute (2) Hallucination, visual Code(s): R44.1 - Visual hallucinations Status: Acute (3) Hypertension Code(s): I10 - Essential (primary) hypertension Status: Chronic (4) Parkinson disease Code(s): G20 - Parkinson's disease Status: Chronic (5) Hyperlipemia Code(s): E78.5 - Hyperlipidemia, unspecified Status: Chronic (6) Anxiety Code(s): F41.9 - Anxiety disorder, unspecified Status: Chronic - Plan 57-year-old male presented with complaint of visual hallucinations since having surgeries in April. History of Parkinson's disease, recently started on Nuplazid. Currently taking Sinemet and pramipexole. Verbalized feeling despair , voiced suicidal thoughts. Acute psychosis, visual hallucinations. History of Parkinson's disease, recently started on Nuplazid. Taking Sinemet and Pramipexole. Etiology of visual hallucinations unclear at this time, possibly medication induced, possibly associated with Parkinson's disease -appreciate neurology input -EEG mild encephalopathy. -Brain MRI negative. -Neurology stopped pramipexole, Sinemet and Nuplazid. Pt. typical PD sx are some drooling and resting tremor. -B12 low, has been given 1000mcg IM x1 as well as MVI -TSH okay -Immune workup negative -Continue to monitor off PD medications, continue with Ativan as needed. -orthos done, negative -Psych titrating quetiapine -Neurology has clear for discharge, recommends to remain off PD medications for now. He stopped Wellbutrin as well due to risk of seizures. -No visual hallucinations, has improved. Sleeping better. Minimal left hand tremor. No drooling. Hypertension Continue Cozaar and metoprolol HLP Continue Pravachol Anxiety -Continue Wellbutrin S/P cholecystectomy, umbilical hernia repair and ERCP Stable, tolerating diet well -continue to monitor. Asymptomatic bacteriuria, received 1 dose of Bactrim in the emergency room At this time we will hold off on continuing antibiotics -Monitor for any fever, urinary symptoms DVT prophylaxis not required, patient is ambulatory. Discussed with patient's , updated on status. We will sign off for now, reconsult if needed Code Status: Full code Discussed Condition With: Pt, shingler Planning: Per psychiatric team (1) Unspecified psychosis Qualifiers: Psychosis type: unspecified psychosis type Qualified Code(s): F29 - Unspecified psychosis not due to a substance or known physiological condition (3) Hypertension Qualifiers: Hypertension type: essential hypertension Qualified Code(s): I10 - Essential (primary) hypertension (5) Hyperlipemia Qualifiers: Hyperlipidemia type: unspecified Qualified Code(s): E78.5 - Hyperlipidemia, unspecified
--- NOTE | 2018-07-04 15:21 | P.DSPSY ---
Psychiatry Discharge Summary Inpatient Psychiatric care?: Yes Advance Directives: No Mental Health Advance Directive: No Health Care Proxy: No - Admission Admission Date: June 29, 2018 16:41 - Admission Diagnosis (1) Unspecified psychosis Code(s): F29 - Unspecified psychosis not due to a substance or known physiological condition (2) Psychosis due to Parkinson's disease Code(s): G20 - Parkinson's disease Brief History: Patient is a 57-year-old man, , unemployed on Social Security disability, domiciled with , has 1 stepdaughter and 1 son who , with no known past psychiatric history, no previous psychiatric diagnoses, hospitalizations or suicide attempts, no substance use history, with a past medical history significant for Parkinson's disease, hypertension, hyperlipidemia, who came in voluntarily due to having suicidal ideations along with visual hallucinations in the context of recent UTI and recent gallbladder surgery. As per chart had sent patient ready to swallow whole bottle of medications and that hallucinations have been worsening with starting of Nuplazid along with paranoid ideations of these visual hallucinations and feeling that these hallucinations of people will harm his . Patient was found sitting in hospital chair noted B, cooperative. Patient states that he had surgery for his gallbladder late April but had not continue on any pain medications since the beginning of May upon discharge. He recalls having had been Friedman acted after the surgery I had reported visual hallucinations of seeing people but denying any auditory hallucinations. He mentions of seeing intimidating people, body contortion and her body stretching out. Patient states that these images are very disturbing has insight into the fact that these are hallucinations although continues to endorse experiencing them. He mentions having gone back to the ED due to these hallucinations and was admitted to in [facility]. He mentions having bizarre visual hallucinations along with paranoid ideations of these hallucinations. He also mentions feeling that he was being set up to look like a bad person. He reports having stated to his "what do I do know I need to take all these pills". Patient denies having had any true intention of suicide only stating being feeling frustrated with these hallucinations which are very distressing. He reports no changes sleep, reports his mood as being frustrate" continues to endorse visual hallucinations which she last experienced this morning which he reports having seeing "people in the nurse's station" along with feeling being pursued by these hallucinations. Patient denies any suicidal homicidal ideations or auditory hallucinations at this time. Family psychiatric history: Denies Past psychiatric history: Denies Substance use history: Denies Past medical history: Parkinson's disease, HTN, HLD Allergies: NKDA Social history: , unemployed on SSD, domiciled , has 1 stepdaughter, and one son. He denies any background, denies any asked to firearms. Denies any legal history. Tobacco Use In Past 30 Days: No How Often Do You Have a Drink Containing Alcohol: Never Hospital Course: Patient is a 57-year-old man, , unemployed on Social Security disability, domiciled with , has 1 stepdaughter and 1 son who , with no known past psychiatric history, no previous psychiatric diagnoses, hospitalizations or suicide attempts, no substance use history, with a past medical history significant for Parkinson's disease, hypertension, hyperlipidemia, who came in voluntarily due to having suicidal ideations along with visual hallucinations in the context of recent UTI and recent gallbladder surgery which patient was admitted to the inpatient psychiatry for further evaluation and management. Patient was admitted to a locked, inpatient psychiatric unit. Appropriate precautions were in place throughout patient's hospital stay. Patient was seen and examined on the unit by psychiatry and neurology. Psychotropic medications were adjusted which patient was discontinued on Parkinson disease medications as per neurology consult recommendations. There was no evidence of any suicidality or homicidality on the inpatient unit. Patient's mood improved along with cessation of perceptional disturbances with the benefit of psychopharmacological treatment and had no behavioral disturbance since admission. Patient was noted to have reached stable mood, noted to participate and engage in treatment and interact with staff adequately. Patient noted to be future oriented with plans to continue treatment and outpatient follow-up appointments for continuity of care. Counselor has arranged discharge plan. On the day of discharge: Patient seen and examined; chart reviewed. Case discussed with nurse and counselor. No behavioral issues overnight. On my examination today, the patient denies any suicidal homicidal ideation, intent or plan on direct questioning and contracts for safety. Patient denies any perceptional disturbances and no delusional material verbalized today. Patient denies any side effects from medication and has understanding of medication regimen and education. No physical complaints. Suicide and violence risk assessment on day of discharge both suggest lower imminent risk, and the patient's level of function is adequate for plan level of outpatient care. Patient has maximized benefit from this inpatient psychiatric hospital stay and will be discharged with discharge plan as arranged by counselor. Patient advised to return to psychiatric emergency room for any concerning psychiatric symptoms. Patient and patient's agrees with plan. - Discharge Discharge Date: 07/04/18 - Discharge Diagnosis (1) Unspecified psychosis Code(s): F29 - Unspecified psychosis not due to a substance or known physiological condition Status: Acute (2) Psychosis due to Parkinson's disease Code(s): G20 - Parkinson's disease Status: Acute Discharge Disposition: Home - Discharge Instructions Discharge Diet: Heart Healthy Diet Activities You Can Perform: Weight Bearing As Tolerat - Discharge Time > 30 minutes Mental Status Examination Appearance: Well dressed/well groomed Consciousness: Alert Orientation: x4 Motor Activity: Other (Tremors noted) Speech: Unremarkable Language: Adequate Fund of Knowledge: Adequate Attention and Concentration: Adequate Memory: Unremarkable Mood: Other ("Good") Affect: Appropriate Thought Process & Associations: Intact, Logical, Goal directed Thought Content: Appropriate Hallucination Type: None Delusion Type: None Suicidal Ideation: No Suicidal Plan: No Suicidal Intention: No Homicidal Ideation: No Homicidal Plan: No Homicidal Intention: No Insight: Adequate Judgment: Adequate Discharge/Advance Care Plan - Results Vital Signs: Last Vital Signs Temp 97.6 F 07/03/18 16:32 Pulse 72 07/03/18 16:32 Resp 18 07/03/18 16:32 BP 157/88 H 07/03/18 16:32 Pulse Ox 99 07/03/18 16:32 Lab Results: Laboratory Results Hemoglobin A1c 5.6 % (4.3-6.0) 06/30/18 08:40 Triglycerides 83 mg/dL (42-150) 06/30/18 08:40 Cholesterol 169 mg/dL (120-200) 06/30/18 08:40 LDL Cholesterol, Calc 107 mg/dL (0-99) H 06/30/18 08:40 HDL Cholesterol 45.0 mg/dL (40.0-60.0) 06/30/18 08:40 TSH 1.020 uIU/mL (0.358-3.740) 06/29/18 12:20 Free T4 1.13 ng/dL (0.76-1.46) 06/30/18 08:40 Urine Culture Comments Culture indicated 06/29/18 11:30 Summary of Procedures: none Imaging: ITS Impressions Head MRI 06/30/18 08:17 CONCLUSION: 1. No acute infarct, acute hemorrhage, midline shift or extra-axial fluid collections. 2. Minimal scattered periventricular and subcortical white matter small vessel ischemic changes bilaterally. 3. Mild cerebral atrophy. Pending Results: None - Medications Number of antipsychotic medications at discharge: 1 - Discharge Care Plan Goals to Promote Your Health: * To prevent worsening of your condition and complications * To maintain your health at the optimal level Directions to Meet Your Goals: Take your medications as prescribed Follow your dietary instruction Follow activity as directed Keep your appointments as scheduled Take your immunizations and boosters as scheduled If your symptoms worsen call your PCP, if no PCP go to Urgent Care Center or Emergency Room For 19/04 questions related to your inpatient stay or results of tests pending at discharge, please contact Dr. Prince Daniel MD at Smoking is Dangerous to Your Health. Avoid second hand smoking (1) Unspecified psychosis Qualifiers: Psychosis type: unspecified psychosis type Qualified Code(s): F29 - Unspecified psychosis not due to a substance or known physiological condition (1) Unspecified psychosis Qualifiers: Psychosis type: unspecified psychosis type Qualified Code(s): F29 - Unspecified psychosis not due to a substance or known physiological condition
[2018-07-05 13:18] LABS: Methylmalonic Acid 0.19 nmol/mL (<=0.40)
== END 2018-07-04 17:15 | disposition home or self-care (01) ==
LOC: NEPD 10:23 → NEDA 16:41 → H4EA 17:55
PROVIDERS: ADMIT Student in an Organized Health Care Education/Training Program; ATTEND Student in an Organized Health Care Education/Training Program

== ENCOUNTER 2018-09-02 10:10 | Inpatient (IN) ==
[2018-09-02] MEDS ORDERED: Acetaminophen 325 MG Tablet PO ONE (10:31)
[2018-09-02] MEDS ORDERED: Piperacil/Tazo 3.375 GM Premix 50 ML IV.SIG ONE (10:37)
[2018-09-02] MEDS ORDERED: Vancomycin Inj 1,000 MG in Sodium Chlor 0.9% Inj 250 ML IV.SIG ONE (10:37)
--- NOTE | 2018-09-02 10:42 | ED ---
HPI General Chief complaint: Urogenital-Male Stated complaint: Time Seen by Provider: 09/02/18 10:32 Source: patient and family Mode of arrival: ambulatory Limitations: no limitations History of Present Illness HPI Narrative: Patient is a 58-year-old male with history of Parkinson's disease , presents to the emergency room for evaluation of possible infection due to a urinary tract infection. Patient reports that for the past few weeks, he has been having urinary urgency, reports that it is getting to the point where it is hard for him to hold his urine. Patient reports that today, he noticed dark colored -blood-tinged urine. Patient reports concerns for possible infection. Patient also reports that he has been having right-sided flank pain with this, he does have history of kidney stones. 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 Patient reports that he did not come hospital earlier as he does not have insurance, he has not follow-up with a physician. Patient reports that he has been having subjective fevers and Chills with his symptoms. Related Data Home Medications Medication Instructions Recorded Confirmed aspirin [Aspir-81] 81 mg PO DAILY 09/02/18 09/02/18 carbidopa-levodopa 1 tab PO TID 09/02/18 09/02/18 lorazepam 1 mg PO PRN PRN 09/02/18 09/02/18 metoprolol tartrate 50 mg PO BID 09/02/18 09/02/18 fuptlgnvbvrf-hziq-tmbci acid 1 tab PO DAILY 09/02/18 09/02/18 [Centrum] quetiapine 200 mg PO QPM 09/02/18 09/02/18 simvastatin 40 mg PO QPM 09/02/18 09/02/18 Allergies Allergy/AdvReac Type Severity Reaction Status Date / Time No Known Allergies Allergy Verified 06/29/18 10:54 Review of Systems ROS: all other systems reviewed are negative PMFSH History History Provided By: Patient Medical History Medical History Acute paranoia (Acute) HTN (hypertension) (Acute) Hallucinations, visual (Acute) Hypercholesteremia (Acute) Kidney stones (Acute) Parkinson disease (Acute) Surgical History Surgical History H/O lithotripsy (Acute) History of arthroscopic knee surgery (Acute) History of cholecystectomy (Acute) History of hernia repair (Acute) History of umbilical hernia repair (Acute) Family History Family History Other Cancer Diabetes Social History Social History Substance History: No History of Abuse Second Hand Smoke Exposure: No Smoking Status: Never smoker How Often Do You Have a Drink Containing Alcohol: Never Recent Travel in [facility] within the Last 8 Weeks: No Recent Out of Country Travel within the Last 8 Weeks: No Exam Narrative Exam Narrative: GENERAL: moderate distress SKIN: Focused skin assessment warm/dry. HEAD: Atraumatic. Normocephalic. EYES: Pupils equal and round. No scleral icterus. No injection or drainage. ENT: No nasal bleeding or discharge. Mucous membranes pink and moist. NECK: Trachea midline. No JVD. CARDIOVASCULAR: Patient is tachycardic. No murmur appreciated. RESPIRATORY: No accessory muscle use. Clear to auscultation. Breath sounds equal bilaterally. GASTROINTESTINAL: Abdomen soft, non-tender, nondistended. Hepatic and splenic margins not palpable. Patient with right-sided flank tenderness MUSCULOSKELETAL: No obvious deformities. No clubbing. No cyanosis. No edema. NEUROLOGICAL: Awake and alert. No obvious cranial nerve deficits. Motor grossly within normal limits. Normal speech. PSYCHIATRIC: Anxious mood and affect; insight and judgment normal. Course Initial Documented Vital Signs Temperature 101.1 F H 09/02/18 10:21 Pulse Rate 122 H 09/02/18 10:21 Respiratory Rate 20 09/02/18 10:21 Blood Pressure 156/84 H 09/02/18 10:21 Pulse Oximetry 94 L 09/02/18 10:21 Last Documented Vital Signs Temperature 98.7 F 09/02/18 12:28 Pulse Rate 105 H 09/02/18 12:28 Respiratory Rate 18 09/02/18 12:28 Blood Pressure 127/80 09/02/18 12:28 Pulse Oximetry 99 09/02/18 12:28 Medical Decision Making MDM Narrative Medical decision making narrative: During the course of the patients emergency department visit, the patients history, examination, and differential diagnosis were reviewed with the patient. The patient was placed on a gambling monitor with oximetry and frequent blood pressure monitoring. The patient had an IV access obtained and blood work sent for analysis. The patient was initially provided IV fluids as well as Tylenol, IV Zosyn and IV vancomycin as patient is tachycardic, febrile, I am concerned for sepsis due to UTI. A septic workup was initiated, he has been pancultured. The patients laboratory studies were reviewed and remarkable for WBC 12.3, hemoglobin 16, hematocrit 45.5, platelets 179 Sodium 141, potassium 3.4, BUN 15, creatinine 0.82, glucose [address] of the abdomen and pelvis shows staghorn calculi, there is no significant perinephric stranding to suggest obstruction at this point. Plan to observe overnight for IV antibiotics for treatment of uti vs pyelonephritis. case reviewed with fp resident - will admit to Dr. Alberto service for treatment of sepsis/pyelonephritis Medical Screen Exam Complete: Yes Emergency Medical Condition: Yes Differential Diagnosis Differential Diagnosis: Sepsis, UTI, electrolyte abnormality, kidney stones Medical Records Medical records reviewed: Yes I reviewed the patient's medical records. Lab Data Result diagrams: 09/02/18 11:00 09/02/18 11:00 Lab Results 09/02/18 09/02/18 09/02/18 Range/Units 10:57 11:00 11:00 WBC 12.3 H (4.0-11.0) th/mm3 RBC 5.32 (4.50-5.90) mil/mm3 Hgb 16.0 (13.0-17.0) gm/dL Hct 45.5 (39.0-51.0) % MCV 85.6 (80.0-100.0) fL MCH 30.0 (27.0-34.0) pg MCHC 35.0 (32.0-36.0) % RDW 14.0 (11.6-17.2) % Plt Count 179 (150-450) th/mm3 MPV 8.0 (7.0-11.0) fL Neut % (Auto) 95.8 H (16.0-70.0) % Lymph % (Auto) 2.0 L (9.0-44.0) % Ferry % (Auto) 1.1 (0.0-8.0) % Eos % (Auto) 0.5 (0.0-4.0) % Baso % (Auto) 0.6 (0.0-2.0) % Neut # (Auto) 11.8 H (1.8-7.7) th/mm3 Lymph # (Auto) 0.2 L (1.0-4.8) th/mm3 Ferry # (Auto) 0.1 (0.0-0.9) th/mm3 Eos # (Auto) 0.1 (0.0-0.4) th/mm3 Baso # (Auto) 0.1 (0.0-0.2) th/mm3 WBC Differential . Differential Comment Auto diff final PT 10.9 (9.8-11.6) sec INR 1.1 Ratio APTT 21.4 L (23.4-31.7) sec Sodium (136-145) meq/L Potassium (3.5-5.1) meq/L Chloride (98-107) meq/L Carbon Dioxide (21.0-32.0) meq/L Anion Gap (5-15) meq/L BUN (7-18) mg/dL Creatinine (0.60-1.30) mg/dL Estimated GFR (>89) mL/min POC Glucose 105 (68-110) mg/dl Random Glucose (74-106) mg/dL Lactic Acid (0.4-2.0) mmol/L Calcium (8.5-10.1) mg/dL Magnesium (1.5-2.5) mg/dL Total Bilirubin (0.2-1.0) mg/dL AST (15-37) U/L ALT (12-78) U/L Alkaline Phosphatase (45-117) U/L Total Protein (6.4-8.2) g/dL Albumin (3.4-5.0) g/dL Urine Color (Yellw/Straw) Urine Clarity (Clear) Urine pH (5.0-8.5) Ur Specific [place] (1.002-1.035) Urine Protein (Neg-Trace) mg/dL Urine Glucose (UA) (Negative) mg/dL Urine Ketones (Negative) mg/dL Urine Occult Blood (Negative) Urine Nitrate (Negative) Urine Bilirubin (Negative) Urine Urobilinogen (Less than 2) mg/dL Ur Leukocyte Esterase (Negative) Urine RBC (0-3) /hpf Urine WBC (0-5) /hpf Urine Bacteria (None) /hpf Urine Mucus (Occasional) /lpf Micro UA Comment Ur Microscopic Review Urine Culture Comments 09/02/18 09/02/18 09/02/18 Range/Units 11:00 11:00 11:30 WBC (4.0-11.0) th/mm3 RBC (4.50-5.90) mil/mm3 Hgb (13.0-17.0) gm/dL Hct (39.0-51.0) % MCV (80.0-100.0) fL MCH (27.0-34.0) pg MCHC (32.0-36.0) % RDW (11.6-17.2) % Plt Count (150-450) th/mm3 MPV (7.0-11.0) fL Neut % (Auto) (16.0-70.0) % Lymph % (Auto) (9.0-44.0) % Ferry % (Auto) (0.0-8.0) % Eos % (Auto) (0.0-4.0) % Baso % (Auto) (0.0-2.0) % Neut # (Auto) (1.8-7.7) th/mm3 Lymph # (Auto) (1.0-4.8) th/mm3 Ferry # (Auto) (0.0-0.9) th/mm3 Eos # (Auto) (0.0-0.4) th/mm3 Baso # (Auto) (0.0-0.2) th/mm3 WBC Differential Differential Comment PT (9.8-11.6) sec INR Ratio APTT (23.4-31.7) sec Sodium 141 (136-145) meq/L Potassium 3.4 L (3.5-5.1) meq/L Chloride 107 (98-107) meq/L Carbon Dioxide 23.9 (21.0-32.0) meq/L Anion Gap 10 (5-15) meq/L BUN 15 (7-18) mg/dL Creatinine 0.82 (0.60-1.30) mg/dL Estimated GFR Greater than 89 (>89) mL/min POC Glucose (68-110) mg/dl Random Glucose 105 (74-106) mg/dL Lactic Acid 2.0 (0.4-2.0) mmol/L Calcium 8.5 (8.5-10.1) mg/dL Magnesium 1.7 (1.5-2.5) mg/dL Total Bilirubin 0.9 (0.2-1.0) mg/dL AST 33 (15-37) U/L ALT 13 (12-78) U/L Alkaline Phosphatase 111 (45-117) U/L Total Protein 8.0 (6.4-8.2) g/dL Albumin 3.8 (3.4-5.0) g/dL Urine Color Brown H (Yellw/Straw) Urine Clarity Cloudy H (Clear) Urine pH 6.0 (5.0-8.5) Ur Specific [place] 1.014 (1.002-1.035) Urine Protein 100 H (Neg-Trace) mg/dL Urine Glucose (UA) Negative (Negative) mg/dL Urine Ketones Negative (Negative) mg/dL Urine Occult Blood Large H (Negative) Urine Nitrate Positive H (Negative) Urine Bilirubin Negative (Negative) Urine Urobilinogen Less than 2 (Less than 2) mg/dL Ur Leukocyte Esterase Moderate H (Negative) Urine RBC (0-3) /hpf Urine WBC (0-5) /hpf Urine Bacteria Many H (None) /hpf Urine Mucus Many H (Occasional) /lpf Micro UA Comment Culture indicated Ur Microscopic Review Not Reportable Urine Culture Comments Culture indicated Imaging Data Radiologist's impression: Abdomen/Pelvis CT 09/02/18 10:42 CONCLUSION: 1. Bilateral renal calculi probably staghorn. 2. There are no calcifications in either ureter. There is no significant perinephric stranding to suggest obstruction at this point. Discharge Plan Discharge Disposition Patient Disposition: ED Admit(ED Internal Use Only) Discharge Condition Condition: Stable Discharge Order Discharge Orders: ED Use Only Admit Order (Routine); Ordered 09/02/18 Ordered By: Gabriela Li Discharge Details Diagnosis: Pyelonephritis Physicians Team ED Provider: Gabriela Li Primary Care Provider: Willy Green Rxs /Orders / Referrals /Forms Prescriptions: No Action aspirin [Aspir-81] 81 mg Tablet,Delayed Release (Dr/Ec) 81 mg PO DAILY RF: 0 simvastatin 40 mg Tablet 40 mg PO QPM RF: 0 metoprolol tartrate 50 mg Tablet 50 mg PO BID RF: 0 lorazepam 1 mg Tablet 1 mg PO PRN PRN (Reason: Anxiety) RF: 0 carbidopa-levodopa 25-100 mg Tablet 1 tab PO TID RF: 0 quetiapine 200 mg Tablet Extended Release 24 Hr 200 mg PO QPM RF: 0 oydzqjzqyjbu-rplr-igmgr acid [Centrum] 18-400 mg-mcg Tablet 1 tab PO DAILY RF: 0 Status ED Status: Pending Admission
[2018-09-02] MEDS: Sod Chloride 0.9% Inj 1,000 ML IV.SIG SCH ×2 (10:48→11:14)
[2018-09-02 11:23] LABS: Baso # (Auto) 0.1 th/mm3 (0.0-0.2); Baso % (Auto) 0.6 % (0.0-2.0); Eos # (Auto) 0.1 th/mm3 (0.0-0.4); Eos % (Auto) 0.5 % (0.0-4.0); Hematocrit 45.5 % (39.0-51.0); Lymph # (Auto) 0.2 th/mm3 (1.0-4.8); Mean Corpuscular Volume 85.6 fL (80.0-100.0); Mono # (Auto) 0.1 th/mm3 (0.0-0.9); Mono % (Auto) 1.1 % (0.0-8.0); Neut # (Auto) 11.8 th/mm3 (1.8-7.7); Neut % (Auto) 95.8 % (16.0-70.0); Platelet Count 179 th/mm3 (150-450); Red Blood Count 5.32 mil/mm3 (4.50-5.90); White Blood Count 12.3 th/mm3 (4.0-11.0)
[2018-09-02 11:32] LABS: Alanine Aminotransferase 13 U/L (12-78); Albumin 3.8 g/dL (3.4-5.0); Anion Gap 10 meq/L (5-15); Aspartate Aminotransferase 33 U/L (15-37); Blood Urea Nitrogen 15 mg/dL (7-18); Calcium 8.5 mg/dL (8.5-10.1); Carbon Dioxide 23.9 meq/L (21.0-32.0); Chloride 107 meq/L (98-107); Glomerular Filtration Rate Greater Than 89 mL/min (>89); Glucose,Random 105 mg/dL (74-106); Magnesium 1.7 mg/dL (1.5-2.5); Potassium 3.4 meq/L (3.5-5.1); Sodium 141 meq/L (136-145)
--- NOTE | 2018-09-02 11:32 | CT ---
EXAM DATE: 09/02/2018 11:27 AM EST AGE/SEX: 58 years / Male INDICATIONS: Right flank pain. CLINICAL DATA: This is the patient's initial encounter. Patient reports that signs and symptoms have been present for 1 day and indicates a pain score of 6/10. MEDICAL/SURGICAL HISTORY: Renal calculi. Hypertension. . Hernia repairs RADIATION DOSE: 30.25 CTDI (mGy) ; Patient body habitus COMPARISON: No prior exams available for comparison. TECHNIQUE: Multiple contiguous axial images were obtained through the abdomen. Images were obtained using multiple row detector helical technique. Using automated exposure control and adjustment of the mA and/or kV according to patient size, radiation dose was kept as low as reasonably achievable to o btain optimal diagnostic quality images. DICOM format image data is available electronically for rev iew and comparison. FINDINGS: Lower Lungs: The visualized lower lungs are clear. Liver: The liver has a homogeneous density without space-occupying lesion. There is no dilation of th e biliary tree. Gallbladder surgically absent Spleen: Homogeneous density without enlargement. Pancreas: Unremarkable without mass or calcification. Right kidney: 2.5 cm nonobstructing right renal stone. There are no calcifications along the expected course of the right ureter. There is no perinephric stranding. Left kidney: Staghorn-type large calculus is seen in the collecting system of the left kidney. 3 smal ler 5 to 7 mm parenchymal calcifications are noted as well. 2 of these are probably in the collecting system. There are no calcifications along the expected course of the left ureter The adrenal glands unremarkable Evidence for previous midline hernia surgery is noted. Scattered diverticuli are present in the desce nding colon In the pelvis prostate cascades are noted. Bladder is small. There is no inguinal hernia. Review of bone windows reveals degenerative changes in the lower lumbar spine. CONCLUSION: 1. Bilateral renal calculi probably staghorn. 2. There are no calcifications in either ureter. There is no significant perinephric stranding to singh ggest obstruction at this point. Electronically signed by: Shay Sanders MD 09/02/2018 11:31 AM EST
[2018-09-02 11:35] LABS: Alkaline Phosphatase 111 U/L (45-117)
[2018-09-02 11:37] LABS: Activated Partial Thrombo Time 21.4 sec (23.4-31.7); INR 1.1 Ratio; Prothrombin Time 10.9 sec (9.8-11.6)
[2018-09-02 12:10] LABS: Bacteria,Urine Many /hpf; Bilirubin,Urine Negative (Negative); Clarity,Urine Cloudy (Clear); Glucose,Urine (UA) Negative (Negative); Leukocyte Esterase,Urine Moderate (Negative); Mucus,Urine Many /lpf (Occasional); Nitrite,Urine Positive (Negative); Specific Gravity,Urine 1.014 (1.002-1.035)
[2018-09-02 12:12] LABS: Color,Urine Brown (Yellw/Straw)
[2018-09-02] MEDS ORDERED: LORazepam 1 MG Tablet PO PRN ×2 (14:09→14:45)
--- NOTE | 2018-09-02 14:09 | P.HPFP ---
History of Present Illness Primary Care Physician: Willy Green DO <Rain Alberto R - 09/03/18 11:24> Willy Green DO <Ashley Kennedy - 09/02/18 14:08> History of Present Illness: 58 year old male presents with increased urination with incontinence and diaphoresis. This started a week and a half ago. It started with frequent urination during the day that occured every 30 minutes. He denies any increased thirst and denies any nocturia or dysuria. He started drinking lots of cranberry juice and water and that made him urinate more. Then a couple days ago he started having R side/flank pain, which was present when he laid down on his R side and it would go away when he got up to walk around. Denies any nausea or vomiting. Last two voids today were dark yellow/red in color. Today he had chills, feeling cold and had diaphoresis while trying to go the bathroom. [place] like the previous UTIs he had before and he decided to come in for further evaluation. A couple of weeks ago he also complained of a larger/ more swollen testicle on R side and more tender during intercourse. Had his prostate checked a couple months ago and it was normal. Never had a colonoscopy. Regular BMs. Denies CP, SOB, Leg Pain. PMH: Parkinson disease, kidney stones (dozens, uric acid stones), UTIs in the past. PSH: Umbilical hernia, cholecystectomy (april 2018). Meds: Carbidopa, levodopa. Other Meds reconciled. A: NKDA Fam Hx: Melanoma in brother. HTN and DM in mom and dad. Social Hx: No smoking cigarettes. Denies consuming alcohol ( quit 23 years ago from drinking heavily), no illicit drug use ( last marijuana use 30 years ago). ROS: See HPI above. <Ashley Kennedy - 09/02/18 18:33> - Diagnosis (1) SIRS (systemic inflammatory response syndrome) (2) Urinary tract infection (3) Hypokalemia (4) Hypertension (5) Parkinson disease (6) Anxiety (7) DVT prophylaxis (8) Nutrition, metabolism, and development symptoms <Ashley Kennedy - 09/02/18 18:33> Review of Systems Constitutional: Denies chills, Denies fever(s) <Ashley Kennedy - 09/02/18 14: 14> Cardiovascular: Denies chest pain <Ashley Kennedy 09/02/18 14:14> Respiratory: Denies cough, Denies shortness of breath <Ashley Kennedy - 14:14> Gastrointestinal: Denies abdominal pain, Denies black, tarry stools, Denies change in bowel habits <Ashley Kennedy 09/02/18 14:14> Genitourinary: Reports blood in urine, Reports urinary frequency, Reports urinary urgency, Denies difficulty urinating, Denies difficulty with ejaculations, Denies painful urination <Ashley Kennedy 09/02/18 14:14> Comments: dark red/yellow.Unsure <Ashley Kennedy 09/02/18 14:14> PMFSH - History History Provided By: Patient <Ashley Kennedy 09/02/18 14:08> - Medical History Medical History: Medical History (Last Reviewed 09/02/18 @ 10:45 by Gabriela Li) Acute paranoia HTN (hypertension) Hallucinations, visual Hypercholesteremia Kidney stones Parkinson disease <Rain Alberto - 09/03/18 11:24> Medical History (Last Reviewed 09/02/18 @ 10:45 by Gabriela Li) Acute paranoia HTN (hypertension) Hallucinations, visual Hypercholesteremia Kidney stones Parkinson disease <Ashley Kennedy 09/02/18 14:08> - Surgical History Surgical History: Surgical History (Last Reviewed 09/02/18 @ 10:45 by Gabriela Li) H/O lithotripsy History of arthroscopic knee surgery History of cholecystectomy History of hernia repair History of umbilical hernia repair <Rain Alberto - 09/03/18 11:24> Surgical History (Last Reviewed 09/02/18 @ 10:45 by Gabriela Li) H/O lithotripsy History of arthroscopic knee surgery History of cholecystectomy History of hernia repair History of umbilical hernia repair <Ashley Kennedy - 09/02/18 14:08> - Family History Family History: Family History (Last Reviewed 09/02/18 @ 10:45 by Gabriela Li) Other Cancer Diabetes <Rain Alberto - 09/03/18 11:24> Family History (Last Reviewed 09/02/18 @ 10:45 by Gabriela Li) Other Cancer Diabetes <Ashley Kennedy - 09/02/18 14:08> - Tobacco History Second Hand Smoke Exposure: No <Ashley Kennedy - 09/02/18 14:08> Tobacco Use In Past 30 Days: No <Ashley Kennedy - 09/02/18 14:08> Smoking Status: Never smoker <Ashley Kennedy - 09/02/18 14:08> - Alcohol History How Often Do You Have a Drink Containing Alcohol: Never <Ashley Kennedy - 04/13 14:08> - Substance Use History Substance History: No History of Abuse <Ashley Kennedy - 09/02/18 14:08> - Travel History Recent Travel in the [facility] Within the Last 8 Weeks: No <Ashley Kennedy - 14:08> Recent Travel Out of the Country Within the Last 8 Weeks: No <Ashley Kennedy - 09/02/18 14:08> - Immunization History Tetanus Immunization: Unsure <Ashley Kennedy - 09/02/18 14:08> Medications and Allergies Allergies Allergy/AdvReac Type Severity Reaction Status Date / Time No Known Allergies Allergy Verified 06/29/18 10:54 <Rain Alberto - 09/03/18 11:24> Home Medications Medication Instructions Recorded Confirmed Type aspirin [Aspir-81] 81 mg PO DAILY 09/02/18 09/02/18 History carbidopa-levodopa 1 tab PO TID 09/02/18 09/02/18 History lorazepam 1 mg PO PRN PRN 09/02/18 09/02/18 History metoprolol tartrate 50 mg PO BID 09/02/18 09/02/18 History uakfqsotwwuf-qjsn-yrdpe acid 1 tab PO DAILY 09/02/18 09/02/18 History [Centrum] quetiapine 100 mg PO QPM 09/02/18 09/02/18 History simvastatin 40 mg PO QPM 09/02/18 09/02/18 History <Rain Alberto - 09/03/18 11:24> Active Medications: Active Medications Acetaminophen (Tylenol) 650 mg PO Q4H PRN PRN Reason: Temp > 100.4 and Pain Last Admin: 09/03/18 05:18 Dose: 650 mg Al Hydroxide/Mg Hydroxide (Milk Of Magnesia Liq) 30 ml PO Q12H PRN PRN Reason: Mild Constipation Aspirin (Ecotrin) 81 mg PO DAILY [facility] Last Admin: 09/03/18 08:59 Dose: 81 mg Bisacodyl (Dulcolax Supp) 10 mg RECTAL DAILY PRN PRN Reason: SEVERE CONSITIPATION Carbidopa/Levodopa (Sinemet 25/100 Mg) 1 tab PO TID [facility] Last Admin: 09/03/18 08:59 Dose: 1 tab Sodium Chloride (Ns Inj) 1,000 mls @ 180 mls/hr IV.CONT .Q5H34M [facility] Last Infusion: 09/03/18 09:37 Dose: 0 mls/hr Piperacillin/Tazobactam/Dextrose (Zosyn 4.5 Gm Premix) 4.5 gm in 100 mls @ 200 mls/hr IV.SIG Q6H [facility] Last Infusion: 09/03/18 05:51 Dose: Infused Vancomycin HCl 2,500 mg/ (Sodium Chloride) 525 mls @ 250 mls/hr IV.SIG Q12H [facility] Last Infusion: 09/03/18 09:00 Dose: Infused Lactulose (Lactulose Liq) 30 ml PO DAILY PRN PRN Reason: SEVERE CONSITIPATION Lorazepam (Ativan) 1 mg PO Q12H PRN PRN Reason: Anxiety Metoprolol Tartrate (Lopressor) 50 mg PO BID [facility] Last Admin: 09/03/18 08:59 Dose: Not Given Miscellaneous Information ([facility] Ordered Lab Info) 0 each OTHER ONCE ONE Stop: 09/04/18 05:46 Multivitamins (Theragran) 1 tab PO DAILY [facility] Last Admin: 09/03/18 09:00 Dose: 1 tab Naloxone HCl (Narcan Inj) 0.4 mg IV.PUSH UNSCH PRN PRN Reason: SEE LABEL COMMENTS Ondansetron HCl (Zofran Inj) 4 mg IV.PUSH Q6H PRN PRN Reason: NAUSEA OR VOMITING Pharmacy Profile Note (Vancomycin Consult Pharmacy) 1 each OTHER UNSCH PRN PRN Reason: Pharmacy to dose Pravastatin Sodium (Pravachol) 80 mg PO QPM [facility] Last Admin: 09/02/18 17:28 Dose: 80 mg Quetiapine Fumarate (Seroquel) 200 mg PO QPM [facility] Last Admin: 09/02/18 17:27 Dose: 100 mg Senna/Docusate Sodium (Shavon-Colace) 1 tab PO BID [facility] Last Admin: 09/03/18 08:59 Dose: 1 tab Sennosides (Senokot) 17.2 mg PO Q12H PRN PRN Reason: Moderate Constipation Sodium Chloride (Ns Flush) 2 ml IV.FLUSH BID [facility] Last Admin: 09/03/18 09:00 Dose: Not Given Sodium Chloride (Ns Flush) 2 ml IV.FLUSH UNSCH PRN PRN Reason: FLUSH AFTER USING IV ACCESS Zolpidem Tartrate (Ambien) 5 mg PO HS PRN PRN Reason: INSOMNIA <Rain Alberto R - 09/03/18 11:24> Exam Vital signs: Vital Signs 09/02/18 12:28 09/02/18 16:00 09/02/18 20:00 Temperature 98.7 F 98.1 F 98.1 F Pulse Rate 105 H 102 H 106 H Respiratory Rate 18 20 22 Blood Pressure 127/80 129/64 117/56 L Pulse Oximetry 99 95 96 09/03/18 00:00 09/03/18 01:43 09/03/18 04:00 Temperature 101.2 F H 99.6 F Pulse Rate 107 H 75 Respiratory Rate 22 20 20 Blood Pressure 139/72 147/67 H Pulse Oximetry 92 L 96 09/03/18 05:47 09/03/18 08:00 Temperature 98.2 F Pulse Rate 75 Respiratory Rate 20 17 Blood Pressure 94/56 L Pulse Oximetry 97 Intake & Output 09/02/18 09/03/18 09/03/18 18:59 06:59 18:59 Intake Total 2400 / 2400 2725 / 2725 1225 / 1225 Output Total 275 / 275 300 / 300 Balance 2125 / 2125 2725 / 2725 925 / 925 Weight 147.1 kg 147.6 kg Intake: IV 2400 / 2400 2725 / 2725 1225 / 1225 NS Inj 1,000 ML @ 180 mls/hr IV 1999 700 / 700 .CONT .Q5H34M [facility] Rx#:[id number] Zosyn 3.375 GM Premix 50 ML @ 50 / 50 100 mls/hr IV.SIG ONCE ONE Rx#: [id number] Zosyn 4.5 GM Premix 4.5 gm In 100 / 100 200 / 200 100 ml @ 200 mls/hr IV.SIG Q6H [facility] Rx#:[id number] NS Inj 1,000 ML @ 2000 mls/hr 1999 IV.SIG Q30M [facility] Rx#:[id number] Vancomycin Inj 1,000 MG In NS 250 / 250 Inj 250 ML @ 250 mls/hr IV.SIG ONCE ONE Rx#:[id number] Vancomycin Inj 2,500 MG In NS 525 / 525 525 / 525 Inj 500 ML @ 250 mls/hr IV.SIG Q12H [facility] Rx#:[id number] Output: Urine 275 / 275 300 / 300 Other: Post Void Residual 1 # Voids 1 Date of Last Bowel Movement 09/01/18 09/03/18 Weight On Admission 145.15 kg <Rain Alberto - 09/03/18 11:24> Vital Signs 09/02/18 10:21 09/02/18 11:15 09/02/18 12:28 Temperature 101.1 F H 98.7 F Pulse Rate 122 H 99 H 105 H Respiratory Rate 20 20 18 Blood Pressure 156/84 H 133/78 127/80 Pulse Oximetry 94 L 99 99 Intake & Output 09/01/18 09/02/18 09/02/18 18:59 06:59 18:59 Intake Total 2300 / 2300 Balance 2300 / 2300 Weight 145.15 kg Intake: IV 2300 / 2300 Zosyn 3.375 GM Premix 50 ML @ 50 / 50 100 mls/hr IV.SIG ONCE ONE Rx#: [id number] NS Inj 1,000 ML @ 2000 mls/hr 1999 IV.SIG Q30M [facility] Rx#:[id number] Vancomycin Inj 1,000 MG In NS 250 / 250 Inj 250 ML @ 250 mls/hr IV.SIG ONCE ONE Rx#:[id number] <Ashley Kennedy - 09/02/18 14:08> Narrative: GENERAL: Elderly appearing male, with resting tremors, lying in bed in no acute distress. SKIN: Warm and dry. HEAD: Normocephalic. EYES: No scleral icterus. No injection or drainage. NECK: Supple, trachea midline. No JVD or lymphadenopathy. CARDIOVASCULAR: Regular rate and rhythm without murmurs, gallops, or rubs. RESPIRATORY: Breath sounds equal bilaterally. No accessory muscle use. GASTROINTESTINAL: Abdomen soft, nondistended. Bowel sounds present. Minimally tender in the right lower quadrant. Minimal right CVA tenderness. MUSCULOSKELETAL: No cyanosis, or edema. <Ashley Kennedy - 09/02/18 18:21> Results - Labs Result diagrams: 09/03/18 05:25 09/03/18 05:25 <Rain Alberto - 09/03/18 11:24> Abnormal lab results 09/02/18 09/02/18 09/02/18 Range/Units 11:00 11:00 11:30 Plt Count (150-450) th/mm3 Neut % (Auto) (16.0-70.0) % Lymph % (Auto) (9.0-44.0) % Neut # (Auto) (1.8-7.7) th/mm3 Lymph # (Auto) (1.0-4.8) th/mm3 APTT 21.4 L (23.4-31.7) sec Potassium 3.4 L (3.5-5.1) meq/L Chloride (98-107) meq/L Estimated GFR (>89) mL/min Random Glucose (74-106) mg/dL Calcium (8.5-10.1) mg/dL AST (15-37) U/L Albumin (3.4-5.0) g/dL Urine Color Brown H (Yellw/Straw) Urine Clarity Cloudy H (Clear) Urine Protein 100 H (Neg-Trace) mg/dL Urine Occult Blood Large H (Negative) Urine Nitrate Positive H (Negative) Ur Leukocyte Esterase Moderate H (Negative) Urine Bacteria Many H (None) /hpf Urine Mucus Many H (Occasional) /lpf 09/03/18 09/03/18 Range/Units 05:25 05:25 Plt Count 140 L (150-450) th/mm3 Neut % (Auto) 90.7 H (16.0-70.0) % Lymph % (Auto) 4.1 L (9.0-44.0) % Neut # (Auto) 8.4 H (1.8-7.7) th/mm3 Lymph # (Auto) 0.4 L (1.0-4.8) th/mm3 APTT (23.4-31.7) sec Potassium (3.5-5.1) meq/L Chloride 110 H (98-107) meq/L Estimated GFR 75 L (>89) mL/min Random Glucose 110 H (74-106) mg/dL Calcium 8.1 L (8.5-10.1) mg/dL AST 55 H (15-37) U/L Albumin 3.1 L D (3.4-5.0) g/dL Urine Color (Yellw/Straw) Urine Clarity (Clear) Urine Protein (Neg-Trace) mg/dL Urine Occult Blood (Negative) Urine Nitrate (Negative) Ur Leukocyte Esterase (Negative) Urine Bacteria (None) /hpf Urine Mucus (Occasional) /lpf Short CBC 09/03/18 Range/Units 05:25 WBC 9.2 (4.0-11.0) th/mm3 Hgb 14.1 (13.0-17.0) gm/dL Hct 41.1 (39.0-51.0) % Plt Count 140 L (150-450) th/mm3 BMP 09/02/18 09/03/18 11:00 05:25 Sodium 141 141 Potassium 3.4 L 3.5 Chloride 107 110 H Carbon Dioxide 23.9 24.4 BUN 15 14 Creatinine 0.82 1.02 Calcium 8.5 8.1 L Liver Function 09/02/18 09/03/18 Range/Units 11:00 05:25 Total Bilirubin 0.9 1.0 (0.2-1.0) mg/dL AST 33 55 H (15-37) U/L ALT 13 42 (12-78) U/L Alkaline Phosphatase 111 82 (45-117) U/L Albumin 3.8 3.1 L D (3.4-5.0) g/dL Urine 09/02/18 Range/Units 11:30 Urine Color Brown H (Yellw/Straw) Urine Clarity Cloudy H (Clear) Urine pH 6.0 (5.0-8.5) Ur Specific [place] 1.014 (1.002-1.035) Urine Protein 100 H (Neg-Trace) mg/dL Urine Glucose (UA) Negative (Negative) mg/dL <Rain Alberto R - 09/03/18 11:24> Abnormal lab results 09/02/18 09/02/18 09/02/18 Range/Units 11:00 11:00 11:00 WBC 12.3 H (4.0-11.0) th/mm3 Neut % (Auto) 95.8 H (16.0-70.0) % Lymph % (Auto) 2.0 L (9.0-44.0) % Neut # (Auto) 11.8 H (1.8-7.7) th/mm3 Lymph # (Auto) 0.2 L (1.0-4.8) th/mm3 APTT 21.4 L (23.4-31.7) sec Potassium 3.4 L (3.5-5.1) meq/L Urine Color (Yellw/Straw) Urine Clarity (Clear) Urine Protein (Neg-Trace) mg/dL Urine Occult Blood (Negative) Urine Nitrate (Negative) Ur Leukocyte Esterase (Negative) Urine Bacteria (None) /hpf Urine Mucus (Occasional) /lpf 09/02/18 Range/Units 11:30 WBC (4.0-11.0) th/mm3 Neut % (Auto) (16.0-70.0) % Lymph % (Auto) (9.0-44.0) % Neut # (Auto) (1.8-7.7) th/mm3 Lymph # (Auto) (1.0-4.8) th/mm3 APTT (23.4-31.7) sec Potassium (3.5-5.1) meq/L Urine Color Brown H (Yellw/Straw) Urine Clarity Cloudy H (Clear) Urine Protein 100 H (Neg-Trace) mg/dL Urine Occult Blood Large H (Negative) Urine Nitrate Positive H (Negative) Ur Leukocyte Esterase Moderate H (Negative) Urine Bacteria Many H (None) /hpf Urine Mucus Many H (Occasional) /lpf Short CBC 09/02/18 Range/Units 11:00 WBC 12.3 H (4.0-11.0) th/mm3 Hgb 16.0 (13.0-17.0) gm/dL Hct 45.5 (39.0-51.0) % Plt Count 179 (150-450) th/mm3 BMP 09/02/18 11:00 Sodium 141 Potassium 3.4 L Chloride 107 Carbon Dioxide 23.9 BUN 15 Creatinine 0.82 Calcium 8.5 Liver Function 09/02/18 Range/Units 11:00 Total Bilirubin 0.9 (0.2-1.0) mg/dL AST 33 (15-37) U/L ALT 13 (12-78) U/L Alkaline Phosphatase 111 (45-117) U/L Albumin 3.8 (3.4-5.0) g/dL Urine 09/02/18 Range/Units 11:30 Urine Color Brown H (Yellw/Straw) Urine Clarity Cloudy H (Clear) Urine pH 6.0 (5.0-8.5) Ur Specific [place] 1.014 (1.002-1.035) Urine Protein 100 H (Neg-Trace) mg/dL Urine Glucose (UA) Negative (Negative) mg/dL <Ashley Kennedy - 09/02/18 14:08> - Imaging Impressions Abdomen/Pelvis CT 09/02/18 10:42 CONCLUSION: 1. Bilateral renal calculi probably staghorn. 2. There are no calcifications in either ureter. There is no significant perinephric stranding to suggest obstruction at this point. <Rain Alberto - 09/03/18 11:24> Impressions Abdomen/Pelvis CT 09/02/18 10:42 CONCLUSION: 1. Bilateral renal calculi probably staghorn. 2. There are no calcifications in either ureter. There is no significant perinephric stranding to suggest obstruction at this point. <Ashley Kennedy - 09/02/18 14:08> Caprini VTE Risk Assessment Caprini VTE Risk Assessment: No/Low Risk (score <= 1) <Ashley Kennedy - 14:57> Caprini Risk Assessment Model: Point Value = 1 Point Value = 2 Point Value = 3 Point Value = 5 Age 41-60 Minor surgery BMI > 25 kg/m2 Swollen legs Varicose veins or History of unexplained or recurrent spontaneous Oral contraceptives or hormone replacement Sepsis (< 1 month) Serious lung disease, including pneumonia (< 1 month) Abnormal pulmonary function Acute myocardial infarction Congestive heart failure (< 1 month) History of inflammatory bowel disease Medical patient at bed rest Age 61-74 Arthroscopic surgery Major open surgery (> 45 min) Laparoscopic surgery (> 45 min) Malignancy Confined to bed (> 72 hours) Immobilizing plaster cast Central venous access Age >= 75 History of VTE Family history of VTE Factor V Leiden Prothrombin [id number] Lupus anticoagulant Anticardiolipin antibodies Elevated serum homocysteine Heparin-induced thrombocytopenia Other congenital or acquired thrombophilia Stroke (< 1 month) Elective arthroplasty Hip, pelvis, or leg fracture Acute spinal cord injury (< 1 month) <Rain Alberto - 09/03/18 11:24> Point Value = 1 Point Value = 2 Point Value = 3 Point Value = 5 Age 41-60 Minor surgery BMI > 25 kg/m2 Swollen legs Varicose veins or History of unexplained or recurrent spontaneous Oral contraceptives or hormone replacement Sepsis (< 1 month) Serious lung disease, including pneumonia (< 1 month) Abnormal pulmonary function Acute myocardial infarction Congestive heart failure (< 1 month) History of inflammatory bowel disease Medical patient at bed rest Age 61-74 Arthroscopic surgery Major open surgery (> 45 min) Laparoscopic surgery (> 45 min) Malignancy Confined to bed (> 72 hours) Immobilizing plaster cast Central venous access Age >= 75 History of VTE Family history of VTE Factor V Leiden Prothrombin [id number] Lupus anticoagulant Anticardiolipin antibodies Elevated serum homocysteine Heparin-induced thrombocytopenia Other congenital or acquired thrombophilia Stroke (< 1 month) Elective arthroplasty Hip, pelvis, or leg fracture Acute spinal cord injury (< 1 month) <Ashley Kennedy - 09/02/18 14:08> Prophylaxis Regimen: Total Risk Factor Score Risk Level Prophylaxis Regimen 0-1 Low Early ambulation 2 Moderate Order ONE of the following: *Sequential Compression Device (SCD) *Heparin 5000 units SQ BID 3-4 Higher Order ONE of the following medications: *Heparin 5000 units SQ TID *Enoxaparin/Lovenox 40 mg SQ daily (WT < 150 kg, CrCl > 30 mL/min) *Enoxaparin/Lovenox 30 mg SQ daily (WT < 150 kg, CrCl > 10-29 mL/min) *Enoxaparin/Lovenox 30 mg SQ BID (WT < 150 kg, CrCl > 30 mL/min) AND/OR *Sequential Compression Device (SCD) 5 or more Highest Order ONE of the following medications: *Heparin 5000 units SQ TID (Preferred with Epidurals) *Enoxaparin/Lovenox 40 mg SQ daily (WT < 150 kg, CrCl > 30 mL/min) *Enoxaparin/Lovenox 30 mg SQ daily (WT < 150 kg, CrCl > 10-29 mL/min) *Enoxaparin/Lovenox 30 mg SQ BID (WT < 150 kg, CrCl > 30 mL/min) AND *Sequential Compression Device (SCD) <Rain Alberto - 09/03/18 11:24> Total Risk Factor Score Risk Level Prophylaxis Regimen 0-1 Low Early ambulation 2 Moderate Order ONE of the following: *Sequential Compression Device (SCD) *Heparin 5000 units SQ BID 3-4 Higher Order ONE of the following medications: *Heparin 5000 units SQ TID *Enoxaparin/Lovenox 40 mg SQ daily (WT < 150 kg, CrCl > 30 mL/min) *Enoxaparin/Lovenox 30 mg SQ daily (WT < 150 kg, CrCl > 10-29 mL/min) *Enoxaparin/Lovenox 30 mg SQ BID (WT < 150 kg, CrCl > 30 mL/min) AND/OR *Sequential Compression Device (SCD) 5 or more Highest Order ONE of the following medications: *Heparin 5000 units SQ TID (Preferred with Epidurals) *Enoxaparin/Lovenox 40 mg SQ daily (WT < 150 kg, CrCl > 30 mL/min) *Enoxaparin/Lovenox 30 mg SQ daily (WT < 150 kg, CrCl > 10-29 mL/min) *Enoxaparin/Lovenox 30 mg SQ BID (WT < 150 kg, CrCl > 30 mL/min) AND *Sequential Compression Device (SCD) <Ashley Kennedy - 09/02/18 14:08> Assessment and Plan - Assessment (1) SIRS (systemic inflammatory response syndrome) Code(s): R65.10 - Systemic inflammatory response syndrome (SIRS) of non- infectious origin without acute organ dysfunction Status: Acute Plan: Patient with increased urinary frequency for 1 week, acute onset of diaphoresis , chills this morning. Met SIRS criteria on admission: febrile at 101.1, tachycardic at 122, RR:20, elevated white count at 12.3. -1 L bolus of normal saline given in the ED. -will continue on maintenance fluids at 180 mls/hr -1 g vancomycin and Zosyn given in the ED. (Coverage for MRSA and Pseudomonas) -Will continue with 1 gram vancomycin and Zosyn 4.5 g every 6 hours. -Urine Cultures pending. -Blood cultures pending. -Lactic acid 2.0. -Elevated white count. Follow-up CBC in a.m. (2) Urinary tract infection Code(s): N39.0 - Urinary tract infection, site not specified Status: Acute Plan: UA shows moderate amount of leukocyte esterase, positive nitrates, large amounts of occult blood. CT abdomen shows renal calculi, no apparent stones. Concerning for Proteus. Will continue on vancomycin and Zosyn for treatment. Urology consulted due to frequent UTIs per patient. Urine culture pending. (3) Hypokalemia Code(s): E87.6 - Hypokalemia Status: Acute Plan: Patient hypokalemic on admission with potassium at 3.4 30 Meqs of potassium chloride given in the ED. Follow-up CMP in a.m. (4) Hypertension Code(s): I10 - Essential (primary) hypertension Status: Chronic Plan: Continue metoprolol dose. Continue home pravastatin. (5) Parkinson disease Code(s): G20 - Parkinson's disease Status: Chronic Plan: Continue carbidopa levodopa. (6) Anxiety Code(s): F41.9 - Anxiety disorder, unspecified Status: Chronic Plan: Lorazepam as needed for anxiety. Seroquel at night. Ambien for insomnia. (7) DVT prophylaxis Status: Acute Plan: SCDs only. (8) Nutrition, metabolism, and development symptoms Code(s): R63.8 - Other symptoms and signs concerning food and fluid intake Status: Acute Plan: Fluids: Normal saline at 180 mils/hour. Electrolyte: Monitor and replete as needed. Nutrition: Cardiac diet. <Ashley Kennedy - 09/02/18 18:33> - Assessment and Plan 58-year-old male with past medical history of kidney stones and UTIs presents with right-sided flank pain. UA positive for leukocyte esterase and high amounts of bacteria. Treating for complicated cystitis with vancomycin and Zosyn. Urology consulted to evaluate patient's frequent UTIs and kidney stones. <Ashley Kennedy - 09/02/18 18:21> - Attending Attestation Patient discussed with resident team and agree with admission and assessment and plan <DeventatepatochristianoRain R - 09/03/18 11:24> <Ashley Kennedy - Last Filed: 09/02/18 18:33> (2) Urinary tract infection Qualifiers: Urinary tract infection type: site unspecified Hematuria presence: without hematuria Qualified Code(s): N39.0 - Urinary tract infection, site not specified (4) Hypertension Qualifiers: Hypertension type: essential hypertension Qualified Code(s): I10 - Essential (primary) hypertension <Ashley Kennedy - Last Filed: 09/02/18 18:33> (2) Urinary tract infection Qualifiers: Urinary tract infection type: site unspecified Hematuria presence: without hematuria Qualified Code(s): N39.0 - Urinary tract infection, site not specified (4) Hypertension Qualifiers: Hypertension type: essential hypertension Qualified Code(s): I10 - Essential (primary) hypertension
[2018-09-02] MEDS ORDERED: Zolpidem Tartrate 5 MG Tablet PO PRN (14:24)
[2018-09-02] MEDS ORDERED: Bisacodyl 10 MG Supp RECTAL PRN (14:24)
[2018-09-02] MEDS: Sod Chloride 0.9% Inj 1,000 ML IV.CONT SCH ×2 (14:36→20:58)
[2018-09-02] MEDS ORDERED: Vancomycin Consult Pharmacy OTHER PRN (15:01)
[2018-09-02] MEDS: Piperacil/Tazo 4.5 GM Premix 4.5 GM/100 ML BAG IV.SIG SCH (16:38)
[2018-09-02] MEDS: Vancomycin Inj 2,500 MG in Sodium Chlor 0.9% Inj 500 ML IV.SIG SCH (17:12)
[2018-09-02] MEDS ORDERED: Naloxone Inj 0.4 MG/ML Vial IV.PUSH PRN (17:58)
[2018-09-02] MEDS: Metoprolol Tartrate 50 MG Tablet PO SCH (20:58)
[2018-09-02] MEDS: Senna/Docusate Sodium 8.6/50 MG Tablet PO SCH (20:59)
[2018-09-03] MEDS: Acetaminophen 325 MG Tablet PO PRN ×2 (00:07→05:18)
[2018-09-03] MEDS: Piperacil/Tazo 4.5 GM Premix 4.5 GM/100 ML BAG IV.SIG SCH ×3 (00:08→12:07)
[2018-09-03] MEDS: Sod Chloride 0.9% Inj 1,000 ML IV.CONT SCH ×4 (00:08→21:31)
[2018-09-03] MEDS: Vancomycin Inj 2,500 MG in Sodium Chlor 0.9% Inj 500 ML IV.SIG SCH (05:19)
[2018-09-03 05:58] LABS: Baso % (Auto) 0.3 % (0.0-2.0); Hematocrit 41.1 % (39.0-51.0); Hemoglobin 14.1 gm/dL (13.0-17.0); Lymph # (Auto) 0.4 th/mm3 (1.0-4.8); Lymph % (Auto) 4.1 % (9.0-44.0); Mean Corpuscular HGB Conc 34.4 % (32.0-36.0); Mean Corpuscular Hemoglobin 29.9 pg (27.0-34.0); Mean Corpuscular Volume 86.9 fL (80.0-100.0); Mono # (Auto) 0.5 th/mm3 (0.0-0.9); Mono % (Auto) 4.9 % (0.0-8.0); Neut # (Auto) 8.4 th/mm3 (1.8-7.7); Neut % (Auto) 90.7 % (16.0-70.0); Platelet Count 140 th/mm3 (150-450); Red Blood Count 4.73 mil/mm3 (4.50-5.90); Red Cell Distribution Width 13.9 % (11.6-17.2); White Blood Count 9.2 th/mm3 (4.0-11.0)
[2018-09-03 06:21] LABS: Alanine Aminotransferase 42 U/L (12-78); Albumin 3.1 g/dL (3.4-5.0); Anion Gap 7 meq/L (5-15); Aspartate Aminotransferase 55 U/L (15-37); Blood Urea Nitrogen 14 mg/dL (7-18); Calcium 8.1 mg/dL (8.5-10.1); Carbon Dioxide 24.4 meq/L (21.0-32.0); Chloride 110 meq/L (98-107); Glomerular Filtration Rate 75 mL/min (>89); Glucose,Random 110 mg/dL (74-106); Potassium 3.5 meq/L (3.5-5.1); Sodium 141 meq/L (136-145)
[2018-09-03 06:22] LABS: Alkaline Phosphatase 82 U/L (45-117); Total Protein 6.7 g/dL (6.4-8.2)
[2018-09-03] MEDS: Metoprolol Tartrate 50 MG Tablet PO SCH (08:59)
[2018-09-03] MEDS: Senna/Docusate Sodium 8.6/50 MG Tablet PO SCH ×2 (08:59→21:29)
--- NOTE | 2018-09-03 09:55 | P.PNADD ---
Addendum to Inpatient Note Reason for Addendum: Additional Documentation Additional information: See resident H&P for full documentation of the history. He is feeling better overnight. Having some urinary incontinence and frequency. Denies CP/SOB No Nausea/vomiting. Tolerating his food. Fever overnight but no chills. Bld cx + -- final result still pending ID consulted Urology consulted -- male with recurrent UTI -- have asked for assistance with workup Vital Signs Temp Pulse Resp BP Pulse Ox 09/03/18 08:00 98.2 F 75 17 94/56 L 97 09/03/18 05:47 20 09/03/18 04:00 99.6 F 75 20 147/67 H 96 09/03/18 01:43 20 09/03/18 00:00 101.2 F H 107 H 22 139/72 92 L 09/02/18 20:00 98.1 F 106 H 22 117/56 L 96 09/02/18 16:00 98.1 F 102 H 20 129/64 95 09/02/18 12:28 98.7 F 105 H 18 127/80 99 09/02/18 11:15 99 H 20 133/78 99 09/02/18 10:21 101.1 F H 122 H 20 156/84 H 94 L Intake and Output 09/02/18 09/03/18 09/03/18 22:59 06:59 14:59 Intake Total 1625 / 1625 1200 / 1200 700 / 700 Balance 1625 / 1625 1200 / 1200 700 / 700 Intake: IV 1625 / 1625 1200 / 1200 700 / 700 NS Inj 1,000 ML @ 180 mls/hr IV 1000 / 1000 1000 / 1000 700 / 700 .CONT .Q5H34M [facility] Rx#:[id number] Zosyn 4.5 GM Premix 4.5 gm In 100 / 100 200 / 200 100 ml @ 200 mls/hr IV.SIG Q6H [facility] Rx#:[id number] Vancomycin Inj 2,500 MG In NS 525 / 525 Inj 500 ML @ 250 mls/hr IV.SIG Q12H [facility] Rx#:[id number] Other: Date of Last Bowel Movement 09/01/18 Weight 147.1 kg 147.6 kg Weight On Admission 145.15 kg Abnormal Labs 09/02/18 09/02/18 09/02/18 11:00 11:00 11:00 WBC 12.3 H Plt Count Neut % (Auto) 95.8 H Lymph % (Auto) 2.0 L Neut # (Auto) 11.8 H Lymph # (Auto) 0.2 L APTT 21.4 L Potassium 3.4 L Chloride Estimated GFR Random Glucose Calcium AST Albumin Urine Color Urine Clarity Urine Protein Urine Occult Blood Urine Nitrate Ur Leukocyte Esterase Urine Bacteria Urine Mucus 09/02/18 09/03/18 09/03/18 11:30 05:25 05:25 WBC Plt Count 140 L Neut % (Auto) 90.7 H Lymph % (Auto) 4.1 L Neut # (Auto) 8.4 H Lymph # (Auto) 0.4 L APTT Potassium Chloride 110 H Estimated GFR 75 L Random Glucose 110 H Calcium 8.1 L AST 55 H Albumin 3.1 L D Urine Color Brown H Urine Clarity Cloudy H Urine Protein 100 H Urine Occult Blood Large H Urine Nitrate Positive H Ur Leukocyte Esterase Moderate H Urine Bacteria Many H Urine Mucus Many H GENERAL: SKIN: Warm and dry. HEAD: Atraumatic. Normocephalic. EYES: Pupils equal and round. No scleral icterus. No injection or drainage. ENT: No nasal bleeding or discharge. Mucous membranes pink and moist. NECK: Trachea midline. No JVD. CARDIOVASCULAR: Regular rate and rhythm. RESPIRATORY: No accessory muscle use. Clear to auscultation. Breath sounds equal bilaterally. GASTROINTESTINAL: Abdomen soft, non-tender, nondistended. Hepatic and splenic margins not palpable. MUSCULOSKELETAL: Extremities without clubbing, cyanosis, or edema. No obvious deformities. NEUROLOGICAL: Awake and alert. No obvious cranial nerve deficits. Slow gait, resting tremor, masked facies of parkinsonism PSYCHIATRIC: Appropriate mood and affect; insight and judgment normal. AP Patient overall feels better since admission. 1. UTI with SIRS criteria -- he is now bacteremic. Was started on Vanc and Zosyn at admission. Will continue these for now but will consult ID for assistance with this case due to the bacteremia. 2. Recurrent UTI - patient reports history of multiple repeat UTI which is a little unusual - have asked for urology to evaluate the patient as well. 3. Parkinson Disease -- continue his meds, he is pretty weak and unsteady -- ask PT to evaluate 4. Continue his other home meds.
--- NOTE | 2018-09-03 11:30 | P.CONURO ---
History of Present Illness Service: Consult date: 09/03/18 Requesting Physician: Ashley Kennedy Reason for Consult: Bilateral renal calculi Primary Care Provider: Willy Green DO History of Present Illness: 58-year-old gentleman with history of Parkinson's disease and recurrent renal calculi since age 19 who is now admitted for management of a urinary tract infection. Patient reports having urgency symptoms for the past couple weeks along with intermittent right flank pain. Initial workup in the emergency room demonstrated the patient to be febrile with a urinalysis consistent with a urinary tract infection. A CT scan of the abdomen and pelvis was performed that demonstrated bilateral renal calculi without evidence of hydronephrosis or perinephric stranding. Patient was admitted for antibiotic therapy and a urology consult placed. At the time of consultation the patient reported that he was feeling better. He denied ongoing flank pain or history of hematuria. He reported that due to his history of Parkinson's he does not respond well to general anesthetics and would like to have his kidney stones managed as conservatively as possible. Review of Systems All other systems reviewed negative except as stated in HPI PMFSH - History History Provided By: Patient - Medical History Medical History: Medical History (Last Reviewed 09/02/18 @ 10:45 by Gabriela Li) Acute paranoia HTN (hypertension) Hallucinations, visual Hypercholesteremia Kidney stones Parkinson disease - Surgical History Surgical History: Surgical History (Last Reviewed 09/02/18 @ 10:45 by Gabriela Li) H/O lithotripsy History of arthroscopic knee surgery History of cholecystectomy History of hernia repair History of umbilical hernia repair - Family History Family History: Family History (Last Reviewed 09/02/18 @ 10:45 by Gabriela Li) Other Cancer Diabetes - Tobacco History Second Hand Smoke Exposure: No Tobacco Use In Past 30 Days: No Smoking Status: Never smoker - Alcohol History How Often Do You Have a Drink Containing Alcohol: Never - Substance Use History Substance History: No History of Abuse - Travel History Recent Travel in the [place] Within the Last 8 Weeks: No Recent Travel Out of the Country Within the Last 8 Weeks: No - Immunization History Tetanus Immunization: Unsure Hx Influenza Vaccine This Season: No Medications and Allergies Active Medications: Active Medications Acetaminophen (Tylenol) 650 mg PO Q4H PRN PRN Reason: Temp > 100.4 and Pain Last Admin: 12/08/18 05:18 Dose: 650 mg Al Hydroxide/Mg Hydroxide (Milk Of Magnesia Liq) 30 ml PO Q12H PRN PRN Reason: Mild Constipation Aspirin (Ecotrin) 81 mg PO DAILY [facility] Last Admin: 09/03/18 08:59 Dose: 81 mg Bisacodyl (Dulcolax Supp) 10 mg RECTAL DAILY PRN PRN Reason: SEVERE CONSITIPATION Carbidopa/Levodopa (Sinemet 25/100 Mg) 1 tab PO TID [facility] Last Admin: 09/03/18 08:59 Dose: 1 tab Sodium Chloride (Ns Inj) 1,000 mls @ 180 mls/hr IV.CONT .Q5H34M [facility] Last Infusion: 09/03/18 09:37 Dose: 0 mls/hr Piperacillin/Tazobactam/Dextrose (Zosyn 4.5 Gm Premix) 4.5 gm in 100 mls @ 200 mls/hr IV.SIG Q6H [facility] Last Infusion: 09/03/18 05:51 Dose: Infused Vancomycin HCl 2,500 mg/ (Sodium Chloride) 525 mls @ 250 mls/hr IV.SIG Q12H [facility] Last Infusion: 09/03/18 09:00 Dose: Infused Lactulose (Lactulose Liq) 30 ml PO DAILY PRN PRN Reason: SEVERE CONSITIPATION Lorazepam (Ativan) 1 mg PO Q12H PRN PRN Reason: Anxiety Metoprolol Tartrate (Lopressor) 50 mg PO BID [facility] Last Admin: 09/03/18 08:59 Dose: Not Given Miscellaneous Information ([facility] Ordered Lab Info) 0 each OTHER ONCE ONE Stop: 09/04/18 05:46 Multivitamins (Theragran) 1 tab PO DAILY [facility] Last Admin: 09/03/18 09:00 Dose: 1 tab Naloxone HCl (Narcan Inj) 0.4 mg IV.PUSH UNSCH PRN PRN Reason: SEE LABEL COMMENTS Ondansetron HCl (Zofran Inj) 4 mg IV.PUSH Q6H PRN PRN Reason: NAUSEA OR VOMITING Pharmacy Profile Note (Vancomycin Consult Pharmacy) 1 each OTHER UNSCH PRN PRN Reason: Pharmacy to dose Pravastatin Sodium (Pravachol) 80 mg PO QPM [facility] Last Admin: 09/02/18 17:28 Dose: 80 mg Quetiapine Fumarate (Seroquel) 200 mg PO QPM [facility] Last Admin: 09/02/18 17:27 Dose: 100 mg Senna/Docusate Sodium (Shavon-Colace) 1 tab PO BID [facility] Last Admin: 09/03/18 08:59 Dose: 1 tab Sennosides (Senokot) 17.2 mg PO Q12H PRN PRN Reason: Moderate Constipation Sodium Chloride (Ns Flush) 2 ml IV.FLUSH BID [facility] Last Admin: 09/03/18 09:00 Dose: Not Given Sodium Chloride (Ns Flush) 2 ml IV.FLUSH UNSCH PRN PRN Reason: FLUSH AFTER USING IV ACCESS Zolpidem Tartrate (Ambien) 5 mg PO HS PRN PRN Reason: INSOMNIA Allergies Allergy/AdvReac Type Severity Reaction Status Date / Time No Known Allergies Allergy Verified 06/29/18 10:54 Home Medications Medication Instructions Recorded Confirmed Type aspirin [Aspir-81] 81 mg PO DAILY 09/02/18 09/02/18 History carbidopa-levodopa 1 tab PO TID 09/02/18 09/02/18 History lorazepam 1 mg PO PRN PRN 09/02/18 09/02/18 History metoprolol tartrate 50 mg PO BID 09/02/18 09/02/18 History mwlgrkbkhzrl-aphu-tetjb acid 1 tab PO DAILY 09/02/18 09/02/18 History [Centrum] quetiapine 100 mg PO QPM 09/02/18 09/02/18 History simvastatin 40 mg PO QPM 09/02/18 09/02/18 History Physical Exam Vital Signs - 24 hr 09/02/18 12:28 09/02/18 16:00 09/02/18 20:00 Temperature 98.7 F 98.1 F 98.1 F Pulse Rate 105 H 102 H 106 H Respiratory Rate 18 20 22 Blood Pressure 127/80 129/64 117/56 L Pulse Oximetry 99 95 96 09/03/18 00:00 09/03/18 01:43 09/03/18 04:00 Temperature 101.2 F H 99.6 F Pulse Rate 107 H 75 Respiratory Rate 22 20 20 Blood Pressure 139/72 147/67 H Pulse Oximetry 92 L 96 09/03/18 05:47 09/03/18 08:00 Temperature 98.2 F Pulse Rate 75 Respiratory Rate 20 17 Blood Pressure 94/56 L Pulse Oximetry 97 Physical Exam: GENERAL: This is a well-nourished, well-developed patient, in no apparent distress. SKIN: No rashes, ecchymoses or lesions. Cool and dry. HEAD: Atraumatic. Normocephalic. No temporal or scalp tenderness. EYES: Pupils equal round and reactive. Extraocular motions intact. No scleral icterus. No injection or drainage. ENT: Nose without bleeding, purulent drainage or septal hematoma. Throat without erythema, tonsillar hypertrophy or exudate. Uvula midline. Airway patent. NECK: Trachea midline. No JVD or lymphadenopathy. Supple, nontender, no meningeal signs. CARDIOVASCULAR: Regular rate and rhythm without murmurs, gallops, or rubs. RESPIRATORY: Clear to auscultation. Breath sounds equal bilaterally. No wheezes , rales, or rhonchi. GASTROINTESTINAL: Abdomen soft, non-tender, nondistended. No hepato-splenomegaly , or palpable masses. No guarding. GENITOURINARY: No CVA tenderness, bladder not distended MUSCULOSKELETAL: Extremities without clubbing, cyanosis, or edema. No joint tenderness, effusion, or edema noted. No calf tenderness. Negative Homans sign bilaterally. NEUROLOGICAL: Awake and alert. Cranial nerves II through XII intact. Motor and sensory grossly within normal limits. Five out of 5 muscle strength in all muscle groups. Normal speech. Laboratory Results - last 24 hr 09/02/18 09/02/18 09/02/18 11:00 11:00 11:00 WBC RBC Hgb Hct MCV MCH MCHC RDW Plt Count MPV Neut % (Auto) Lymph % (Auto) [place] % (Auto) Eos % (Auto) Baso % (Auto) Neut # (Auto) Lymph # (Auto) [place] # (Auto) Eos # (Auto) Baso # (Auto) WBC Differential Differential Comment PT 10.9 INR 1.1 APTT 21.4 L Sodium 141 Potassium 3.4 L Chloride 107 Carbon Dioxide 23.9 Anion Gap 10 BUN 15 Creatinine 0.82 Estimated GFR Greater than 89 Random Glucose 105 Lactic Acid 2.0 Calcium 8.5 Magnesium 1.7 Total Bilirubin 0.9 AST 33 ALT 13 Alkaline Phosphatase 111 Total Protein 8.0 Albumin 3.8 Urine Color Urine Clarity Urine pH Ur Specific [place] Urine Protein Urine Glucose (UA) Urine Ketones Urine Occult Blood Urine Nitrate Urine Bilirubin Urine Urobilinogen Ur Leukocyte Esterase Urine RBC Urine WBC Urine Bacteria Urine Mucus Micro UA Comment Ur Microscopic Review Urine Culture Comments 09/02/18 09/03/18 09/03/18 11:30 05:25 05:25 WBC 9.2 RBC 4.73 Hgb 14.1 Hct 41.1 MCV 86.9 MCH 29.9 MCHC 34.4 RDW 13.9 Plt Count 140 L MPV 8.0 Neut % (Auto) 90.7 H Lymph % (Auto) 4.1 L [place] % (Auto) 4.9 Eos % (Auto) 0.0 Baso % (Auto) 0.3 Neut # (Auto) 8.4 H Lymph # (Auto) 0.4 L [place] # (Auto) 0.5 Eos # (Auto) 0.0 Baso # (Auto) 0.0 WBC Differential . Differential Comment Auto diff final PT INR APTT Sodium 141 Potassium 3.5 Chloride 110 H Carbon Dioxide 24.4 Anion Gap 7 BUN 14 Creatinine 1.02 Estimated GFR 75 L Random Glucose 110 H Lactic Acid Calcium 8.1 L Magnesium Total Bilirubin 1.0 AST 55 H ALT 42 Alkaline Phosphatase 82 Total Protein 6.7 D Albumin 3.1 L D Urine Color Brown H Urine Clarity Cloudy H Urine pH 6.0 Ur Specific [place] 1.014 Urine Protein 100 H Urine Glucose (UA) Negative Urine Ketones Negative Urine Occult Blood Large H Urine Nitrate Positive H Urine Bilirubin Negative Urine Urobilinogen Less than 2 Ur Leukocyte Esterase Moderate H Urine RBC Urine WBC Urine Bacteria Many H Urine Mucus Many H Micro UA Comment Culture indicated Ur Microscopic Review Not Reportable Urine Culture Comments Culture indicated Microbiology 09/02/18 11:30 Urine Culture - Preliminary Clean Catch Urine gram negative rods 09/02/18 11:00 Aerobic Blood Culture - Preliminary Blood - Peripheral No growth in 1 day Anaerobic Blood Culture - Preliminary gram negative rods 09/02/18 11:05 Aerobic Blood Culture - Preliminary Blood - Peripheral gram negative rods Anaerobic Blood Culture - Preliminary gram negative rods Result Diagrams: 09/03/18 05:25 09/03/18 05:25 Imaging: ITS Impressions Abdomen/Pelvis CT 09/02/18 10:42 CONCLUSION: 1. Bilateral renal calculi probably staghorn. 2. There are no calcifications in either ureter. There is no significant perinephric stranding to suggest obstruction at this point. Assessment and Plan - Assessment (1) Renal calculus, bilateral Code(s): N20.0 - Calculus of kidney Status: Acute (2) Urinary tract infection Code(s): N39.0 - Urinary tract infection, site not specified Status: Acute - Plan Urologic impression: 1. Urinary tract infection 2. Bilateral moderately sized nonobstructing renal calculi Recommendations: 1. Agree with present antibiotic therapy 2. No acute intervention indicated at the present time 3. Please arrange office follow-up with me within several weeks after hospital discharge for ongoing management of the bilateral renal calculi. (2) Urinary tract infection Qualifiers: Urinary tract infection type: site unspecified Hematuria presence: without hematuria Qualified Code(s): N39.0 - Urinary tract infection, site not specified
[2018-09-03] MEDS: Metoprolol Tartrate 25 MG Tablet PO SCH ×2 (16:14→21:29)
--- NOTE | 2018-09-03 16:43 | P.CONID ---
History of Present Illness Service: Infectious Disease Consult date: 09/03/18 Requesting Physician: Rain Alberto Reason for Consult: Evaluation and Mment of Klebsiella bacteremia Primary Care Provider: Willy Green DO History of Present Illness: Mr. Bojorquez is a 58-year-old male with past medical history significant for Parkinson's disease, recurrent UTI secondary to a staghorn calculus. With this background patient presents with increased frequency of urination associated with incontinence and diaphoresis. Patient reported that a week and a half ago he fell. He reports having started cranberry juice and water that made him urinate even more patient then developed right-sided flank pain that was present on his right side and would not go away even on walking around. He denies any nausea or vomiting. He reports that the color of his urine changed to have a dark yellow to red in color. On the day of admission he reported chills feeling cold and unwell as well as diaphoresis especially when trying to go to the bathroom. Patient reports he was here in April 2018 with another urinary tract infection at that point and had developed psychosis. Patient reports that he had a prostate checked a couple of months back by his primary care physician and was told it was normal. 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 He used to drink alcohol heavily in the past and quit 23 years back. His last marijuana use was 30 years back he denies any cigarette smoking. Infectious diseases consulted for evaluation and management of Klebsiella bacteremia. Review of Systems All other systems reviewed negative except as stated in HPI PMFSH - History History Provided By: Patient - Medical History Medical History: Medical History (Last Reviewed 09/02/18 @ 10:45 by Gabriela Li) Acute paranoia HTN (hypertension) Hallucinations, visual Hypercholesteremia Kidney stones Parkinson disease - Surgical History Surgical History: Surgical History (Last Reviewed 09/02/18 @ 10:45 by Gabriela Li) H/O lithotripsy History of arthroscopic knee surgery History of cholecystectomy History of hernia repair History of umbilical hernia repair - Family History Family History: Family History (Last Reviewed 09/02/18 @ 10:45 by Gabriela Li) Other Cancer Diabetes - Tobacco History Second Hand Smoke Exposure: No Tobacco Use In Past 30 Days: No Smoking Status: Never smoker - Alcohol History How Often Do You Have a Drink Containing Alcohol: Never - Substance Use History Substance History: No History of Abuse - Travel History Recent Travel in the [place] Within the Last 8 Weeks: No Recent Travel Out of the Country Within the Last 8 Weeks: No - Immunization History Tetanus Immunization: Unsure Hx Influenza Vaccine This Season: No Medications and Allergies Active Medications: Active Medications Acetaminophen (Tylenol) 650 mg PO Q4H PRN PRN Reason: Temp > 100.4 and Pain Last Admin: 09/03/18 05:18 Dose: 650 mg Al Hydroxide/Mg Hydroxide (Milk Of Magnesia Liq) 30 ml PO Q12H PRN PRN Reason: Mild Constipation Aspirin (Ecotrin) 81 mg PO DAILY [facility] Last Admin: 09/03/18 08:59 Dose: 81 mg Bisacodyl (Dulcolax Supp) 10 mg RECTAL DAILY PRN PRN Reason: SEVERE CONSITIPATION Carbidopa/Levodopa (Sinemet 25/100 Mg) 1 tab PO TID [facility] Last Admin: 09/03/18 12:07 Dose: 1 tab Sodium Chloride (Ns Inj) 1,000 mls @ 180 mls/hr IV.CONT .Q5H34M [facility] Last Infusion: 09/03/18 09:37 Dose: 0 mls/hr Ceftriaxone Sodium 2,000 mg/ (Sodium Chloride) 100 mls @ 200 mls/hr IV.SIG Q24H [facility] Last Admin: 09/03/18 16:24 Dose: 200 mls/hr Lactulose (Lactulose Liq) 30 ml PO DAILY PRN PRN Reason: SEVERE CONSITIPATION Lorazepam (Ativan) 1 mg PO Q12H PRN PRN Reason: Anxiety Metoprolol Tartrate (Lopressor) 25 mg PO BID [facility] Last Admin: 09/03/18 16:14 Dose: Not Given Multivitamins (Theragran) 1 tab PO DAILY [facility] Last Admin: 09/03/18 09:00 Dose: 1 tab Naloxone HCl (Narcan Inj) 0.4 mg IV.PUSH UNSCH PRN PRN Reason: SEE LABEL COMMENTS Ondansetron HCl (Zofran Inj) 4 mg IV.PUSH Q6H PRN PRN Reason: NAUSEA OR VOMITING Pravastatin Sodium (Pravachol) 80 mg PO QPM [facility] Last Admin: 09/02/18 17:28 Dose: 80 mg Quetiapine Fumarate (Seroquel) 100 mg PO QPM [facility] Senna/Docusate Sodium (Shavon-Colace) 1 tab PO BID [facility] Last Admin: 09/03/18 08:59 Dose: 1 tab Sennosides (Senokot) 17.2 mg PO Q12H PRN PRN Reason: Moderate Constipation Sodium Chloride (Ns Flush) 2 ml IV.FLUSH BID [facility] Last Admin: 09/03/18 09:00 Dose: Not Given Sodium Chloride (Ns Flush) 2 ml IV.FLUSH UNSCH PRN PRN Reason: FLUSH AFTER USING IV ACCESS Zolpidem Tartrate (Ambien) 5 mg PO HS PRN PRN Reason: INSOMNIA Allergies Allergy/AdvReac Type Severity Reaction Status Date / Time No Known Allergies Allergy Verified 06/29/18 10:54 Home Medications Medication Instructions Recorded Confirmed Type aspirin [Aspir-81] 81 mg PO DAILY 09/02/18 09/02/18 History carbidopa-levodopa 1 tab PO TID 09/02/18 09/02/18 History lorazepam 1 mg PO PRN PRN 09/02/18 09/02/18 History metoprolol tartrate 50 mg PO BID 09/02/18 09/02/18 History iixznsuohmxn-oyra-ynmfu acid 1 tab PO DAILY 09/02/18 09/02/18 History [Centrum] quetiapine 100 mg PO QPM 09/02/18 09/02/18 History simvastatin 40 mg PO QPM 09/02/18 09/02/18 History Exam Vital signs: Vital Signs 09/02/18 20:00 09/03/18 00:00 09/03/18 01:43 Temperature 98.1 F 101.2 F H Pulse Rate 106 H 107 H Respiratory Rate 22 22 20 Blood Pressure 117/56 L 139/72 Pulse Oximetry 96 92 L 09/03/18 04:00 09/03/18 05:47 09/03/18 08:00 Temperature 99.6 F 98.2 F Pulse Rate 75 75 Respiratory Rate 20 20 17 Blood Pressure 147/67 H 94/56 L Pulse Oximetry 96 97 09/03/18 12:00 Temperature 98.1 F Pulse Rate 95 H Respiratory Rate 17 Blood Pressure 120/63 Pulse Oximetry 93 L Intake & Output 09/02/18 09/03/1809/03/18 18:59 06:59 18:59 Intake Total 2400 / 2400 2725 / 2725 1325 / 1325 Output Total 275 / 275 300 / 300 Balance 2125 / 2125 2725 / 2725 1025 / 1025 Weight 147.1 kg 147.6 kg Intake: IV 2400 / 2400 2725 / 2725 1325 / 1325 NS Inj 1,000 ML @ 180 mls/hr IV 1999 / 1999 700 / 700 .CONT .Q5H34M [facility] Rx#:[id number] Zosyn 3.375 GM Premix 50 ML @ 50 / 50 100 mls/hr IV.SIG ONCE ONE Rx#: [id number] Zosyn 4.5 GM Premix 4.5 gm In 100 / 100 200 / 200 100 / 100 100 ml @ 200 mls/hr IV.SIG Q6H [facility] Rx#:[id number] NS Inj 1,000 ML @ 2000 mls/hr 1999 / 1999 IV.SIG Q30M [facility] Rx#:[id number] Vancomycin Inj 1,000 MG In NS 250 / 250 Inj 250 ML @ 250 mls/hr IV.SIG ONCE ONE Rx#:[id number] Vancomycin Inj 2,500 MG In NS 525 / 525 525 / 525 Inj 500 ML @ 250 mls/hr IV.SIG Q12H [facility] Rx#:[id number] Output: Urine 275 / 275 300 / 300 Other: Post Void Residual 1 # Voids 1 Date of Last Bowel Movement 09/01/18 09/03/18 Weight On Admission 145.15 kg Narrative: GENERAL: Well-nourished well-developed, not in acute distress SKIN: Cool and dry, no generalized rash HEAD: Atraumatic. Normocephalic. No temporal or scalp tenderness. EYES: Pupils equal round and reactive. Scleral icterus. No injection or drainage. No petechia ENT: Nothing abnormal detected NECK: Trachea midline. Supple, nontender, no meningeal signs. CARDIOVASCULAR: HS audible. RESPIRATORY: Clear to auscultation bilaterally. GASTROINTESTINAL: Abdomen soft nontender. Obese. MUSCULOSKELETAL: Extremities without clubbing, cyanosis. NEUROLOGICAL: Alert oriented 3. Has a tremor in his bilateral upper extremities right more than left especially when engaged in stressful conversations. Psych flat affect IV line sites ok. Results - Labs CBC & Chem 7: 09/03/18 05:25 09/03/18 05:25 Labs: Laboratory Results - last 24 hr 09/02/18 09/03/18 09/03/18 11:30 05:25 05:25 WBC 9.2 RBC 4.73 Hgb 14.1 Hct 41.1 MCV 86.9 MCH 29.9 MCHC 34.4 RDW 13.9 Plt Count 140 L MPV 8.0 Neut % (Auto) 90.7 H Lymph % (Auto) 4.1 L Craig % (Auto) 4.9 Eos % (Auto) 0.0 Baso % (Auto) 0.3 Neut # (Auto) 8.4 H Lymph # (Auto) 0.4 L Craig # (Auto) 0.5 Eos # (Auto) 0.0 Baso # (Auto) 0.0 WBC Differential . Differential Comment Auto diff final Sodium 141 Potassium 3.5 Chloride 110 H Carbon Dioxide 24.4 Anion Gap 7 BUN 14 Creatinine 1.02 Estimated GFR 75 L Random Glucose 110 H Calcium 8.1 L Total Bilirubin 1.0 AST 55 H ALT 42 Alkaline Phosphatase 82 Total Protein 6.7 D Albumin 3.1 L D Urine Color Brown H Urine Clarity Cloudy H Urine pH 6.0 Ur Specific [place] 1.014 Urine Protein 100 H Urine Glucose (UA) Negative Urine Ketones Negative Urine Occult Blood Large H Urine Nitrate Positive H Urine Bilirubin Negative Urine Urobilinogen Less than 2 Ur Leukocyte Esterase Moderate H Urine RBC Urine WBC Urine Bacteria Many H Urine Mucus Many H Micro UA Comment Culture indicated Urine Culture Comments Culture indicated - Imaging Abdomen/Pelvis CT 09/02/18 10:42 CONCLUSION: 1. Bilateral renal calculi probably staghorn. 2. There are no calcifications in either ureter. There is no significant perinephric stranding to suggest obstruction at this point. Assessment and Plan - Plan Sepsis present on admission Klebsiella bacteremia likely secondary to UTI. Kleb UTI complicated secondary to staghorn calculi. Staghorn calculus likely nidus of infection and needs to be addressed to prevent UTIs. Recs DC Vanco IV DC Zosyn IV Start Ceftriaxone IV (Kleb not a ESBL or CRE based on verigene testing by Micro as markers negative. Repeat blood cultures x 2 if these remain negative no further workup and if oral antibiotic choice available will provide DC recs upon follow up. But if repeat blood cultures positive he may need more workup and further dw Dr.Scaglia. Patient thinks his psychosis could be worsened by anaesthesia. I explained to him that staghorn is likely nidus of infections and should be addressed at some point soon as well. Follow cultures follow clinical course.
[2018-09-03] MEDS: QUEtiapine 100 MG Tablet PO SCH (17:14)
[2018-09-04] MEDS: Sod Chloride 0.9% Inj 1,000 ML IV.CONT SCH ×5 (05:17→21:37)
[2018-09-04] MEDS ORDERED: Pharmacy Ordered Lab Info OTHER ONE (05:45)
[2018-09-04 06:41] LABS: Hematocrit 39.5 % (39.0-51.0); Hemoglobin 13.3 gm/dL (13.0-17.0); Mean Corpuscular HGB Conc 33.6 % (32.0-36.0); Mean Corpuscular Hemoglobin 29.5 pg (27.0-34.0); Mean Corpuscular Volume 87.8 fL (80.0-100.0); Platelet Count 121 th/mm3 (150-450); Red Cell Distribution Width 14.1 % (11.6-17.2); White Blood Count 4.7 th/mm3 (4.0-11.0)
[2018-09-04 07:02] LABS: Albumin 2.6 g/dL (3.4-5.0); Anion Gap 4 meq/L (5-15); Aspartate Aminotransferase 55 U/L (15-37); Blood Urea Nitrogen 13 mg/dL (7-18); Calcium 7.6 mg/dL (8.5-10.1); Carbon Dioxide 23.6 meq/L (21.0-32.0); Chloride 114 meq/L (98-107); Glomerular Filtration Rate Greater Than 89 mL/min (>89); Glucose,Random 106 mg/dL (74-106); Potassium 3.8 meq/L (3.5-5.1); Sodium 142 meq/L (136-145)
[2018-09-04 07:03] LABS: Alanine Aminotransferase 38 U/L (12-78)
[2018-09-04 07:05] LABS: Alkaline Phosphatase 68 U/L (45-117); Total Protein 5.8 g/dL (6.4-8.2)
--- NOTE | 2018-09-04 08:47 | P.PNFP ---
Subjective Interval history: No acute events overnight. Patient states that he is feeling mildly better but continues to feel overall malaise. Denies any chest pain, shortness of breath, abdominal pain, diarrhea. Had a normal bowel movement today. States his urine is becoming more clear. <Jomar Peguero B - 09/04/18 12:06> Results - Labs Result diagrams: 09/05/18 06:48 09/05/18 06:48 <Rain Alberto - 09/05/18 17:15> Abnormal lab results 09/05/18 09/05/18 Range/Units 06:48 06:48 RBC 4.37 L (4.50-5.90) mil/mm3 Hct 38.7 L (39.0-51.0) % Plt Count 123 L (150-450) th/mm3 Converse % (Auto) 9.2 H (0.0-8.0) % Eos % (Auto) 4.1 H (0.0-4.0) % Sodium 146 H (136-145) meq/L Chloride 115 H (98-107) meq/L Creatinine 0.52 L (0.60-1.30) mg/dL Calcium 7.5 L (8.5-10.1) mg/dL AST 45 H (15-37) U/L Total Protein 5.8 L (6.4-8.2) g/dL Albumin 2.6 L (3.4-5.0) g/dL Short CBC 09/05/18 Range/Units 06:48 WBC 4.2 (4.0-11.0) th/mm3 Hgb 13.0 (13.0-17.0) gm/dL Hct 38.7 L (39.0-51.0) % Plt Count 123 L (150-450) th/mm3 BMP 09/05/18 06:48 Sodium 146 H Potassium 3.6 Chloride 115 H Carbon Dioxide 24.2 BUN 10 Creatinine 0.52 L Calcium 7.5 L Liver Function 09/05/18 Range/Units 06:48 Total Bilirubin 0.3 (0.2-1.0) mg/dL AST 45 H (15-37) U/L ALT 36 (12-78) U/L Alkaline Phosphatase 71 (45-117) U/L Albumin 2.6 L (3.4-5.0) g/dL <Rain Alberto - 09/05/18 17:15> Abnormal lab results 09/02/18 09/04/18 09/04/18 Range/Units 11:30 06:15 06:15 Plt Count 121 L (150-450) th/mm3 Chloride 114 H (98-107) meq/L Anion Gap 4 L (5-15) meq/L Calcium 7.6 L (8.5-10.1) mg/dL AST 55 H (15-37) U/L Total Protein 5.8 L D (6.4-8.2) g/dL Albumin 2.6 L (3.4-5.0) g/dL Urine Color Brown H (Yellw/Straw) Urine Clarity Cloudy H (Clear) Urine Protein 100 H (Neg-Trace) mg/dL Urine Occult Blood Large H (Negative) Urine Nitrate Positive H (Negative) Ur Leukocyte Esterase Moderate H (Negative) Urine Bacteria Many H (None) /hpf Urine Mucus Many H (Occasional) /lpf Short CBC 09/04/18 Range/Units 06:15 WBC 4.7 (4.0-11.0) th/mm3 Hgb 13.3 (13.0-17.0) gm/dL Hct 39.5 (39.0-51.0) % Plt Count 121 L (150-450) th/mm3 BMP 09/04/18 06:15 Sodium 142 Potassium 3.8 Chloride 114 H Carbon Dioxide 23.6 BUN 13 Creatinine 0.65 Calcium 7.6 L Liver Function 09/04/18 Range/Units 06:15 Total Bilirubin 0.3 (0.2-1.0) mg/dL AST 55 H (15-37) U/L ALT 38 (12-78) U/L Alkaline Phosphatase 68 (45-117) U/L Albumin 2.6 L (3.4-5.0) g/dL Urine 09/02/18 Range/Units 11:30 Urine Color Brown H (Yellw/Straw) Urine Clarity Cloudy H (Clear) Urine pH 6.0 (5.0-8.5) Ur Specific [place] 1.014 (1.002-1.035) Urine Protein 100 H (Neg-Trace) mg/dL Urine Glucose (UA) Negative (Negative) mg/dL <Jomar Peguero - 09/04/18 08:47> Physical Exam Vital signs: Vital Signs 09/04/18 20:00 09/05/18 00:00 09/05/18 08:00 Temperature 97.6 F 98.6 F 98.1 F Pulse Rate 87 65 70 Respiratory Rate 20 20 16 Blood Pressure 141/71 H 121/59 L 114/58 L Pulse Oximetry 97 96 96 09/05/18 12:00 09/05/18 17:08 Temperature 97.8 F 97.4 F L Pulse Rate 81 76 Respiratory Rate 17 17 Blood Pressure 162/86 H 130/69 Pulse Oximetry 95 98 Intake & Output 09/04/18 09/05/18 09/05/18 18:59 06:59 18:59 Intake Total 3840 / 3840 2780 / 2780 1000 / 1000 Output Total 650 / 650 1500 / 1500 Balance 3190 / 3190 1280 / 1280 1000 / 1000 Weight 147 kg Intake: IV 2965 / 2965 2000 / 1999 1000 / 1000 NS Inj 1,000 ML @ 180 mls/hr IV 2865 / 2865 1999 / 1999 1000 / 1000 .CONT .Q5H34M [facility] Rx#:[id number] Rocephin Inj 2,000 MG In NS Inj 100 / 100 100 ML @ 200 mls/hr IV.SIG Q24H [facility] Rx#:[id number] Oral 875 / 875 780 / 780 Output: Urine 650 / 650 1500 / 1500 Other: Date of Last Bowel Movement 09/04/18 09/04/18 09/04/18 # Bowel Movements 1 <Rain Alberto R - 09/05/18 17:15> Vital Signs 09/03/18 12:00 09/03/18 16:00 09/03/18 20:00 Temperature 98.1 F 98.0 F 97.4 F L Pulse Rate 95 H 86 88 Respiratory Rate 17 18 18 Blood Pressure 120/63 142/75 H 116/57 L Pulse Oximetry 93 L 96 98 09/04/18 00:00 Temperature 98.1 F Pulse Rate 77 Respiratory Rate 18 Blood Pressure 114/58 L Pulse Oximetry 97 Intake & Output 09/03/18 09/04/18 09/04/18 18:59 06:59 18:59 Intake Total 2175 / 2175 1780 / 1780 Output Total 900 / 900 1280 / 1280 Balance 1275 / 1275 500 / 500 Weight 147 kg Intake: IV 1425 / 1425 1300 / 1300 NS Inj 1,000 ML @ 180 mls/hr IV 700 / 700 1300 / 1300 .CONT .Q5H34M [facility] Rx#:[id number] Zosyn 4.5 GM Premix 4.5 gm In 100 / 100 100 ml @ 200 mls/hr IV.SIG Q6H [facility] Rx#:[id number] Vancomycin Inj 2,500 MG In NS 525 / 525 Inj 500 ML @ 250 mls/hr IV.SIG Q12H [facility] Rx#:[id number] Rocephin Inj 2,000 MG In NS Inj 100 / 100 100 ML @ 200 mls/hr IV.SIG Q24H [facility] Rx#:[id number] Oral 750 / 750 480 / 480 Output: Urine 900 / 900 1280 / 1280 Other: Date of Last Bowel Movement 09/03/18 09/03/18 # Bowel Movements 1 <Jomar Peguero Diane - 09/04/18 08:47> Narrative: GENERAL: Well-nourished well-developed, not in acute distress SKIN: Cool and dry, no generalized rash HEAD: Atraumatic. Normocephalic. No temporal or scalp tenderness. EYES: Pupils equal round and reactive. Scleral icterus. No injection or drainage. No petechia ENT: Nothing abnormal detected NECK: Trachea midline. Supple, nontender, no meningeal signs. CARDIOVASCULAR: Regular rate and rhythm no murmurs appreciated RESPIRATORY: Clear to auscultation bilaterally. GASTROINTESTINAL: Abdomen soft nontender. MUSCULOSKELETAL: Extremities without clubbing, cyanosis. NEUROLOGICAL: Alert oriented 3. Has a tremor in his bilateral upper extremities right more than left especially when engaged in stressful conversations. Psych flat affect. <SudhirJomar Contreras - 09/04/18 12:06> Assessment and Plan - Assessment (1) Bacteremia Code(s): R78.81 - Bacteremia Status: Acute (2) Urinary tract infection Code(s): N39.0 - Urinary tract infection, site not specified Status: Acute (3) Bilateral lower extremity edema Code(s): R60.0 - Localized edema Status: Acute (4) Hypokalemia Code(s): E87.6 - Hypokalemia Status: Acute (5) Hypertension Code(s): I10 - Essential (primary) hypertension Status: Chronic (6) Parkinson disease Code(s): G20 - Parkinson's disease Status: Chronic (7) Anxiety Code(s): F41.9 - Anxiety disorder, unspecified Status: Chronic (8) DVT prophylaxis Status: Acute (9) Nutrition, metabolism, and development symptoms Code(s): R63.8 - Other symptoms and signs concerning food and fluid intake Status: Acute <Rain Alberto Jignesh - 09/05/18 17:15> (1) Bacteremia Code(s): R78.81 - Bacteremia Status: Acute Plan: Met Sirs criteria on admission Was started on vancomycin and Zosyn initially, blood cultures grew Klebsiella and infectious disease was consulted. Infectious disease discontinued Vanco Zosyn and started on Rocephin Urine cultures also growing Klebsiella, suspected source Repeat blood cultures pending (2) Urinary tract infection Code(s): N39.0 - Urinary tract infection, site not specified Status: Acute Plan: UA shows moderate amount of leukocyte esterase, positive nitrates, large amounts of occult blood. CT abdomen shows renal calculi, no apparent stones. Concerning for Proteus. Urine culture growing Klebsiella, ID consulted and on Rocephin Urology consulted due to frequent UTIs per patient. (3) Hypokalemia Code(s): E87.6 - Hypokalemia Status: Acute Plan: Resolved (4) Hypertension Code(s): I10 - Essential (primary) hypertension Status: Chronic Plan: Continue metoprolol dose. Continue home pravastatin. (5) Parkinson disease Code(s): G20 - Parkinson's disease Status: Chronic Plan: Continue carbidopa levodopa. (6) Anxiety Code(s): F41.9 - Anxiety disorder, unspecified Status: Chronic Plan: Lorazepam as needed for anxiety. Seroquel at night. Ambien for insomnia. (7) DVT prophylaxis Status: Acute Plan: SCDs only. (8) Nutrition, metabolism, and development symptoms Code(s): R63.8 - Other symptoms and signs concerning food and fluid intake Status: Acute Plan: Fluids: Normal saline at 180 mils/hour. Electrolyte: Monitor and replete as needed. Nutrition: Cardiac diet. <Jomar Peguero - 09/04/18 12:01> - Assessment and Plan 58-year-old male with past medical history of kidney stones and UTIs presents with right-sided flank pain. UA positive for leukocyte esterase and high amounts of bacteria. Initially treated for complicated cystitis with vancomycin and Zosyn. Urology consulted to evaluate patient's frequent UTIs and kidney stones. Patient's blood and urine cultures are growing Klebsiella. Infectious disease was consulted and patient was switched to Rocephin. Repeat blood cultures pending <Jomar Peguero - 09/04/18 12:06> - Attending Attestation Pt dw the resident team - agree with the assessment and plan. <Rain Alberto - 09/05/18 17:15> <Jomar Peguero B - Last Filed: 09/04/18 12:01> (2) Urinary tract infection Qualifiers: Urinary tract infection type: site unspecified Hematuria presence: without hematuria Qualified Code(s): N39.0 - Urinary tract infection, site not specified (4) Hypertension Qualifiers: Hypertension type: essential hypertension Qualified Code(s): I10 - Essential (primary) hypertension <Rain Alberto R - Last Filed: 09/05/18 17:15> (2) Urinary tract infection Qualifiers: Urinary tract infection type: site unspecified Hematuria presence: without hematuria Qualified Code(s): N39.0 - Urinary tract infection, site not specified (5) Hypertension Qualifiers: Hypertension type: essential hypertension Qualified Code(s): I10 - Essential (primary) hypertension <Jomar Peguero B - Last Filed: 09/04/18 12:01> (2) Urinary tract infection Qualifiers: Urinary tract infection type: site unspecified Hematuria presence: without hematuria Qualified Code(s): N39.0 - Urinary tract infection, site not specified (4) Hypertension Qualifiers: Hypertension type: essential hypertension Qualified Code(s): I10 - Essential (primary) hypertension <Rain Alberto R - Last Filed: 09/05/18 17:15> (2) Urinary tract infection Qualifiers: Urinary tract infection type: site unspecified Hematuria presence: without hematuria Qualified Code(s): N39.0 - Urinary tract infection, site not specified (5) Hypertension Qualifiers: Hypertension type: essential hypertension Qualified Code(s): I10 - Essential (primary) hypertension
[2018-09-04] MEDS: Metoprolol Tartrate 25 MG Tablet PO SCH ×2 (08:49→20:11)
[2018-09-04] MEDS: Senna/Docusate Sodium 8.6/50 MG Tablet PO SCH ×2 (08:52→20:09)
[2018-09-04 11:20] LABS: Eosinophils 1 % (0-4); Lymphocytes 12 % (9-44); Monocytes 6 % (0-8); Platelet Morphology Normal (Normal); Toxic Vacuolation Present
--- NOTE | 2018-09-04 13:52 | P.PNID ---
Subjective Remarks: Mr. Bojorquez is a 58-year-old male with past medical history significant for Parkinson's disease, recurrent UTI secondary to a staghorn calculus. With this background patient presents with increased frequency of urination associated with incontinence and diaphoresis. Patient reported that a week and a half ago he fell. He reports having started cranberry juice and water that made him urinate even more patient then developed right-sided flank pain that was present on his right side and would not go away even on walking around. He denies any nausea or vomiting. He reports that the color of his urine changed to have a dark yellow to red in color. On the day of admission he reported chills feeling cold and unwell as well as diaphoresis especially when trying to go to the bathroom. Patient reports he was here in April 2018 with another urinary tract infection at that point and had developed psychosis. Patient reports that he had a prostate checked a couple of months back by his primary care physician and was told it was normal. 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 He used to drink alcohol heavily in the past and quit 23 years back. His last marijuana use was 30 years back he denies any cigarette smoking. Infectious diseases consulted for evaluation and management of Klebsiella bacteremia. Overnight events reviewed No fevers no rash No diarrhea Feels little better today Antibiotics: Ceftriaxone IV Lines: Lines ok Past Medical History: reviewed Allergies/Adverse Reactions: Allergies No Known Allergies Allergy (Verified 06/29/18 10:54) Objective Vital Signs 09/03/18 16:00 09/03/18 20:00 09/04/18 00:00 Temperature 98.0 F 97.4 F L 98.1 F Pulse Rate 86 88 77 Respiratory Rate 18 18 18 Blood Pressure 142/75 H 116/57 L 114/58 L Pulse Oximetry 96 98 97 09/04/18 08:00 09/04/18 12:00 Temperature 98.2 F 97.7 F Pulse Rate 77 85 Respiratory Rate 19 17 Blood Pressure 116/74 139/83 Pulse Oximetry 96 94 L Intake & Output 09/03/18 09/04/18 09/04/18 18:59 06:59 18:59 Intake Total 2175 / 2175 1780 / 1780 1000 / 1000 Output Total 900 / 900 1280 / 1280 175 / 175 Balance 1275 / 1275 500 / 500 825 / 825 Weight 147 kg Intake: IV 1425 / 1425 1300 / 1300 1000 / 1000 NS Inj 1,000 ML @ 180 mls/hr IV 700 / 700 1300 / 1300 1000 / 1000 .CONT .Q5H34M [facility] Rx#:[id number] Zosyn 4.5 GM Premix 4.5 gm In 100 / 100 100 ml @ 200 mls/hr IV.SIG Q6H [facility] Rx#:[id number] Vancomycin Inj 2,500 MG In NS 525 / 525 Inj 500 ML @ 250 mls/hr IV.SIG Q12H [facility] Rx#:[id number] Rocephin Inj 2,000 MG In NS Inj 100 / 100 100 ML @ 200 mls/hr IV.SIG Q24H [facility] Rx#:[id number] Oral 750 / 750 480 / 480 Output: Urine 900 / 900 1280 / 1280 175 / 175 Other: Date of Last Bowel Movement 09/03/18 09/03/18 09/04/18 # Bowel Movements 1 1 09/04/18 09:30 Blood - Peripheral Aerobic Blood Culture - Pending 09/04/18 09:30 Blood - Peripheral Anaerobic Blood Culture - Pending 09/04/18 09:10 Blood - Peripheral Aerobic Blood Culture - Pending 09/04/18 09:10 Blood - Peripheral Anaerobic Blood Culture - Pending 09/02/18 11:05 Blood - Peripheral Aerobic Blood Culture - Final Klebsiella pneumoniae 09/02/18 11:05 Blood - Peripheral Anaerobic Blood Culture - Preliminary Klebsiella pneumoniae 09/02/18 11:00 Blood - Peripheral Aerobic Blood Culture - Preliminary gram negative rods 09/02/18 11:00 Blood - Peripheral Anaerobic Blood Culture - Preliminary Klebsiella pneumoniae 09/02/18 11:30 Clean Catch Urine Urine Culture - Final Klebsiella pneumoniae Lab - Hematology Results 09/03/18 09/04/18 05:25 06:15 WBC 9.2 4.7 RBC 4.73 4.50 Hgb 14.1 13.3 Hct 41.1 39.5 MCV 86.9 87.8 MCH 29.9 29.5 MCHC 34.4 33.6 RDW 13.9 14.1 Plt Count 140 L 121 L MPV 8.0 8.0 Prelim Diff (Auto) Manual diff required Neut % (Auto) 90.7 H Lymph % (Auto) 4.1 L [place] % (Auto) 4.9 Eos % (Auto) 0.0 Baso % (Auto) 0.3 Neut # (Auto) 8.4 H Lymph # (Auto) 0.4 L [place] # (Auto) 0.5 Eos # (Auto) 0.0 Baso # (Auto) 0.0 WBC Differential . Manual diff final Seg Neuts % (Manual) 62 Band Neuts % (Manual) 18 H Lymphocytes % (Manual) 12 Monocytes % (Manual) 6 Eosinophils % (Manual) 1 Basophils % (Manual) 1 Abs Neuts (Manual) 3.8 Differential Comment Auto diff final . Toxic Vacuolation Present H Platelet Estimate Low L Platelet Morphology Normal Lab - Chemistry Results 09/03/18 09/04/18 05:25 06:15 Sodium 141 142 Potassium 3.5 3.8 Chloride 110 H 114 H Carbon Dioxide 24.4 23.6 Anion Gap 7 4 L BUN 14 13 Creatinine 1.02 0.65 Estimated GFR 75 L Greater than 89 Random Glucose 110 H 106 Calcium 8.1 L 7.6 L Total Bilirubin 1.0 0.3 AST 55 H 55 H ALT 42 38 Alkaline Phosphatase 82 68 Total Protein 6.7 D 5.8 L D Albumin 3.1 L D 2.6 L Imaging: ITS Impressions Abdomen/Pelvis CT 09/02/18 10:42 CONCLUSION: 1. Bilateral renal calculi probably staghorn. 2. There are no calcifications in either ureter. There is no significant perinephric stranding to suggest obstruction at this point. Physical Exam: GENERAL: Well-nourished well-developed, not in acute distress SKIN: Cool and dry, no generalized rash HEAD: Atraumatic. Normocephalic. No temporal or scalp tenderness. EYES: Pupils equal round and reactive. Scleral icterus. No injection or drainage. No petechia ENT: Nothing abnormal detected NECK: Trachea midline. Supple, nontender, no meningeal signs. CARDIOVASCULAR: HS audible. RESPIRATORY: Clear to auscultation bilaterally. GASTROINTESTINAL: Abdomen soft nontender. Obese. MUSCULOSKELETAL: Extremities without clubbing, cyanosis. NEUROLOGICAL: Alert oriented 3. Has a tremor in his bilateral upper extremities right more than left especially when engaged in stressful conversations. Psych flat affect IV line sites ok. Assessment and Plan - Plan Sepsis present on admission Klebsiella bacteremia likely secondary to UTI. Kleb UTI complicated secondary to staghorn calculi. Staghorn calculus likely nidus of infection and needs to be addressed to prevent UTIs. Recs Continue Ceftriaxone IV (Kleb not a ESBL or CRE based on verigene testing by Micro as markers negative. Follow repeat blood cultures x 2 if these remain negative no further workup and if oral antibiotic choice available will provide DC recs upon follow up. But if repeat blood cultures positive he may need more workup and further owen Bull. Follow cultures follow clinical course. owen pt
[2018-09-04] MEDS: QUEtiapine 100 MG Tablet PO SCH (17:29)
[2018-09-05] MEDS: Sod Chloride 0.9% Inj 1,000 ML IV.CONT SCH ×3 (03:05→04:06)
[2018-09-05] MEDS: Acetaminophen 325 MG Tablet PO PRN (05:16)
[2018-09-05 07:29] LABS: Baso % (Auto) 0.6 % (0.0-2.0); Eos # (Auto) 0.2 th/mm3 (0.0-0.4); Eos % (Auto) 4.1 % (0.0-4.0); Hematocrit 38.7 % (39.0-51.0); Lymph % (Auto) 22.8 % (9.0-44.0); Mean Corpuscular HGB Conc 33.5 % (32.0-36.0); Mean Corpuscular Hemoglobin 29.7 pg (27.0-34.0); Mean Corpuscular Volume 88.5 fL (80.0-100.0); Mean Platelet Volume 8.2 fL (7.0-11.0); Mono # (Auto) 0.4 th/mm3 (0.0-0.9); Mono % (Auto) 9.2 % (0.0-8.0); Neut # (Auto) 2.7 th/mm3 (1.8-7.7); Neut % (Auto) 63.3 % (16.0-70.0); Platelet Count 123 th/mm3 (150-450); Red Blood Count 4.37 mil/mm3 (4.50-5.90); Red Cell Distribution Width 14.1 % (11.6-17.2); White Blood Count 4.2 th/mm3 (4.0-11.0)
[2018-09-05 08:00] LABS: Albumin 2.6 g/dL (3.4-5.0); Anion Gap 7 meq/L (5-15); Aspartate Aminotransferase 45 U/L (15-37); Blood Urea Nitrogen 10 mg/dL (7-18); Calcium 7.5 mg/dL (8.5-10.1); Carbon Dioxide 24.2 meq/L (21.0-32.0); Chloride 115 meq/L (98-107); Glucose,Random 91 mg/dL (74-106); Potassium 3.6 meq/L (3.5-5.1); Sodium 146 meq/L (136-145)
[2018-09-05 08:04] LABS: Alanine Aminotransferase 36 U/L (12-78); Alkaline Phosphatase 71 U/L (45-117); Glomerular Filtration Rate Greater Than 89 mL/min (>89); Total Protein 5.8 g/dL (6.4-8.2)
[2018-09-05] MEDS: Metoprolol Tartrate 25 MG Tablet PO SCH ×2 (08:17→20:16)
[2018-09-05] MEDS: Senna/Docusate Sodium 8.6/50 MG Tablet PO SCH ×2 (08:18→20:17)
--- NOTE | 2018-09-05 08:31 | P.PNFP ---
Subjective Interval history: No acute events overnight. Patient stated that he felt anxious last evening and requested an Ativan. Following that he states that he felt better and slept through the night well. He denies any chest pain, shortness of breath states he is urinating every 45 minutes and his urine is clear. He is complaining of some tightness on the top of his feet. Denies any pain, numbness or tingling. <Jomar Peguero B - 09/05/18 08:30> Results - Labs Result diagrams: 09/05/18 06:48 09/05/18 06:48 <Rain Alberto R - 09/05/18 17:16> Abnormal lab results 09/05/18 09/05/18 Range/Units 06:48 06:48 RBC 4.37 L (4.50-5.90) mil/mm3 Hct 38.7 L (39.0-51.0) % Plt Count 123 L (150-450) th/mm3 [place] % (Auto) 9.2 H (0.0-8.0) % Eos % (Auto) 4.1 H (0.0-4.0) % Sodium 146 H (136-145) meq/L Chloride 115 H (98-107) meq/L Creatinine 0.52 L (0.60-1.30) mg/dL Calcium 7.5 L (8.5-10.1) mg/dL AST 45 H (15-37) U/L Total Protein 5.8 L (6.4-8.2) g/dL Albumin 2.6 L (3.4-5.0) g/dL Short CBC 09/05/18 Range/Units 06:48 WBC 4.2 (4.0-11.0) th/mm3 Hgb 13.0 (13.0-17.0) gm/dL Hct 38.7 L (39.0-51.0) % Plt Count 123 L (150-450) th/mm3 BMP 09/05/18 06:48 Sodium 146 H Potassium 3.6 Chloride 115 H Carbon Dioxide 24.2 BUN 10 Creatinine 0.52 L Calcium 7.5 L Liver Function 09/05/18 Range/Units 06:48 Total Bilirubin 0.3 (0.2-1.0) mg/dL AST 45 H (15-37) U/L ALT 36 (12-78) U/L Alkaline Phosphatase 71 (45-117) U/L Albumin 2.6 L (3.4-5.0) g/dL <Rain Alberto - 09/05/18 17:16> Abnormal lab results 09/04/18 09/05/18 09/05/18 Range/Units 06:15 06:48 06:48 RBC 4.37 L (4.50-5.90) mil/mm3 Hct 38.7 L (39.0-51.0) % Plt Count 123 L (150-450) th/mm3 [place] % (Auto) 9.2 H (0.0-8.0) % Eos % (Auto) 4.1 H (0.0-4.0) % Band Neuts % (Manual) 18 H (0-6) % Toxic Vacuolation Present H (None) Platelet Estimate Low L (Normal) Sodium 146 H (136-145) meq/L Chloride 115 H (98-107) meq/L Creatinine 0.52 L (0.60-1.30) mg/dL Calcium 7.5 L (8.5-10.1) mg/dL AST 45 H (15-37) U/L Total Protein 5.8 L (6.4-8.2) g/dL Albumin 2.6 L (3.4-5.0) g/dL Short CBC 09/05/18 Range/Units 06:48 WBC 4.2 (4.0-11.0) th/mm3 Hgb 13.0 (13.0-17.0) gm/dL Hct 38.7 L (39.0-51.0) % Plt Count 123 L (150-450) th/mm3 [facility] 09/05/18 06:48 Sodium 146 H Potassium 3.6 Chloride 115 H Carbon Dioxide 24.2 BUN 10 Creatinine 0.52 L Calcium 7.5 L Liver Function 09/05/18 Range/Units 06:48 Total Bilirubin 0.3 (0.2-1.0) mg/dL AST 45 H (15-37) U/L ALT 36 (12-78) U/L Alkaline Phosphatase 71 (45-117) U/L Albumin 2.6 L (3.4-5.0) g/dL <Jomar Peguero - 09/05/18 08:30> Physical Exam Vital signs: Vital Signs 09/04/18 20:00 09/05/18 00:00 09/05/18 08:00 Temperature 97.6 F 98.6 F 98.1 F Pulse Rate 87 65 70 Respiratory Rate 20 20 16 Blood Pressure 141/71 H 121/59 L 114/58 L Pulse Oximetry 97 96 96 09/05/18 12:00 09/05/18 17:08 Temperature 97.8 F 97.4 F L Pulse Rate 81 76 Respiratory Rate 17 17 Blood Pressure 162/86 H 130/69 Pulse Oximetry 95 98 Intake & Output 09/04/18 09/05/18 09/05/18 18:59 06:59 18:59 Intake Total 3840 / 3840 2780 / 2780 1000 / 1000 Output Total 650 / 650 1500 / 1500 Balance 3190 / 3190 1280 / 1280 1000 / 1000 Weight 147 kg Intake: IV 2965 / 2965 1999 / 1999 1000 / 1000 NS Inj 1,000 ML @ 180 mls/hr IV 2865 / 2865 1999 / 1999 1000 / 1000 .CONT .Q5H34M [facility] Rx#:[id number] Rocephin Inj 2,000 MG In NS Inj 100 / 100 100 ML @ 200 mls/hr IV.SIG Q24H [facility] Rx#:[id number] Oral 875 / 875 780 / 780 Output: Urine 650 / 650 1500 / 1500 Other: Date of Last Bowel Movement 09/04/18 09/04/18 09/04/18 # Bowel Movements 1 <Rain Alberto R - 09/05/18 17:16> Vital Signs 09/04/18 12:00 09/04/18 16:00 09/04/18 20:00 Temperature 97.7 F 98.0 F 97.6 F Pulse Rate 85 75 87 Respiratory Rate 17 17 20 Blood Pressure 139/83 124/84 141/71 H Pulse Oximetry 94 L 95 97 09/05/18 00:00 Temperature 98.6 F Pulse Rate 65 Respiratory Rate 20 Blood Pressure 121/59 L Pulse Oximetry 96 Intake & Output 09/04/18 09/05/18 09/05/18 18:59 06:59 18:59 Intake Total 3840 / 3840 2780 / 2780 Output Total 650 / 650 1500 / 1500 Balance 3190 / 3190 1280 / 1280 Weight 147 kg Intake: IV 2965 / 2965 1999 NS Inj 1,000 ML @ 180 mls/hr IV 2865 / 2865 1999 .CONT .Q5H34M [facility] Rx#:[id number] Rocephin Inj 2,000 MG In NS Inj 100 / 100 100 ML @ 200 mls/hr IV.SIG Q24H [facility] Rx#:[id number] Oral 875 / 875 780 / 780 Output: Urine 650 / 650 1500 / 1500 Other: Date of Last Bowel Movement 09/04/18 09/04/18 # Bowel Movements 1 <Jomar Peguero B - 09/05/18 08:30> Narrative: GENERAL: Well-nourished well-developed, not in acute distress SKIN: Cool and dry, no generalized rash HEAD: Atraumatic. Normocephalic. No temporal or scalp tenderness. EYES: Pupils equal round and reactive. Scleral icterus. No injection or drainage. No petechia ENT: Nothing abnormal detected NECK: Trachea midline. Supple, nontender, no meningeal signs. CARDIOVASCULAR: Regular rate and rhythm no murmurs appreciated RESPIRATORY: Clear to auscultation bilaterally. GASTROINTESTINAL: Abdomen soft nontender. MUSCULOSKELETAL: Extremities without clubbing, cyanosis. 1+ pitting edema noted to the level of the tibial plateau in the bilateral lower extremities. NEUROLOGICAL: Alert oriented 3. Has a tremor in his bilateral upper extremities right more than left especially when engaged in stressful conversations. Psych flat affect -unchanged <Jomar Peguero B - 09/05/18 09:50> Assessment and Plan - Assessment (1) Bacteremia Code(s): R78.81 - Bacteremia Status: Acute (2) Urinary tract infection Code(s): N39.0 - Urinary tract infection, site not specified Status: Acute (3) Bilateral lower extremity edema Code(s): R60.0 - Localized edema Status: Acute (4) Hypokalemia Code(s): E87.6 - Hypokalemia Status: Acute (5) Hypertension Code(s): I10 - Essential (primary) hypertension Status: Chronic (6) Parkinson disease Code(s): G20 - Parkinson's disease Status: Chronic (7) Anxiety Code(s): F41.9 - Anxiety disorder, unspecified Status: Chronic (8) DVT prophylaxis Status: Acute (9) Nutrition, metabolism, and development symptoms Code(s): R63.8 - Other symptoms and signs concerning food and fluid intake Status: Acute <Rain Alberto R - 09/05/18 17:16> (1) Bacteremia Code(s): R78.81 - Bacteremia Status: Acute Plan: Met Sirs criteria on admission Was started on vancomycin and Zosyn initially, blood cultures grew Klebsiella and infectious disease was consulted. Infectious disease discontinued Vanco Zosyn and started on Rocephin Urine cultures also growing Klebsiella, suspected source Repeat blood cultures pending (2) Urinary tract infection Code(s): N39.0 - Urinary tract infection, site not specified Status: Acute Plan: UA shows moderate amount of leukocyte esterase, positive nitrates, large amounts of occult blood. CT abdomen shows renal calculi, no apparent stones. Concerning for Proteus. Urine culture growing Klebsiella, ID consulted and on Rocephin Urology consulted due to frequent UTIs per patient - will follow up as outpatient (3) Bilateral lower extremity edema Code(s): R60.0 - Localized edema Status: Acute Plan: Patient noted to have 1+ pitting edema to the level of the tibial plateau in the bilateral lower extremities Has been on normal saline 1 any milliliters per hour, patient has had adequate p.o. intake so will discontinue IV fluids on 09/05 (4) Hypokalemia Code(s): E87.6 - Hypokalemia Status: Acute Plan: Resolved (5) Hypertension Code(s): I10 - Essential (primary) hypertension Status: Chronic Plan: Continue metoprolol dose. Continue home pravastatin. (6) Parkinson disease Code(s): G20 - Parkinson's disease Status: Chronic Plan: Continue carbidopa levodopa. (7) Anxiety Code(s): F41.9 - Anxiety disorder, unspecified Status: Chronic Plan: Lorazepam as needed for anxiety - required one dose on 09/04 Seroquel at night. Ambien for insomnia. (8) DVT prophylaxis Status: Acute Plan: SCDs only. (9) Nutrition, metabolism, and development symptoms Code(s): R63.8 - Other symptoms and signs concerning food and fluid intake Status: Acute Plan: Fluids: Discontinuing IV fluids on 09/05, encouraging p.o. intake Electrolyte: Monitor and replete as needed. Nutrition: Cardiac diet. <Jomar Peguero - 09/05/18 09:38> - Assessment and Plan 58-year-old male with past medical history of kidney stones and UTIs presents with right-sided flank pain. UA positive for leukocyte esterase and high amounts of bacteria. Initially treated for complicated cystitis with vancomycin and Zosyn. Urology consulted to evaluate patient's frequent UTIs and kidney stones. Patient's blood and urine cultures are growing Klebsiella. Infectious disease was consulted and patient was switched to Rocephin. Repeat blood cultures pending <Jomar Peguero - 09/05/18 09:50> - Attending Attestation Patient seen and dw the resident team. Agree with the assessment and plan <Rain Alberto R - 09/05/18 17:16> <Jomar Peguero B - Last Filed: 09/05/18 09:38> (2) Urinary tract infection Qualifiers: Urinary tract infection type: site unspecified Hematuria presence: without hematuria Qualified Code(s): N39.0 - Urinary tract infection, site not specified (5) Hypertension Qualifiers: Hypertension type: essential hypertension Qualified Code(s): I10 - Essential (primary) hypertension <Rain Alberto R - Last Filed: 09/05/18 17:16> (2) Urinary tract infection Qualifiers: Urinary tract infection type: site unspecified Hematuria presence: without hematuria Qualified Code(s): N39.0 - Urinary tract infection, site not specified (5) Hypertension Qualifiers: Hypertension type: essential hypertension Qualified Code(s): I10 - Essential (primary) hypertension <Jomar Peguero B - Last Filed: 09/05/18 09:38> (2) Urinary tract infection Qualifiers: Urinary tract infection type: site unspecified Hematuria presence: without hematuria Qualified Code(s): N39.0 - Urinary tract infection, site not specified (5) Hypertension Qualifiers: Hypertension type: essential hypertension Qualified Code(s): I10 - Essential (primary) hypertension <Rain Alberto R - Last Filed: 09/05/18 17:16> (2) Urinary tract infection Qualifiers: Urinary tract infection type: site unspecified Hematuria presence: without hematuria Qualified Code(s): N39.0 - Urinary tract infection, site not specified (5) Hypertension Qualifiers: Hypertension type: essential hypertension Qualified Code(s): I10 - Essential (primary) hypertension
--- NOTE | 2018-09-05 12:54 | P.PNID ---
Subjective Remarks: Mr. Bojorquez is a 58-year-old male with past medical history significant for Parkinson's disease, recurrent UTI secondary to a staghorn calculus. With this background patient presents with increased frequency of urination associated with incontinence and diaphoresis. Patient reported that a week and a half ago he fell. He reports having started cranberry juice and water that made him urinate even more patient then developed right-sided flank pain that was present on his right side and would not go away even on walking around. He denies any nausea or vomiting. He reports that the color of his urine changed to have a dark yellow to red in color. On the day of admission he reported chills feeling cold and unwell as well as diaphoresis especially when trying to go to the bathroom. Patient reports he was here in April 2018 with another urinary tract infection at that point and had developed psychosis. Patient reports that he had a prostate checked a couple of months back by his primary care physician and was told it was normal. 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 He used to drink alcohol heavily in the past and quit 23 years back. His last marijuana use was 30 years back he denies any cigarette smoking. Infectious diseases consulted for evaluation and management of Klebsiella bacteremia. Overnight events reviewed No fevers no rash No diarrhea Had an episode of anxiety last night. Antibiotics: Ceftriaxone IV Lines: Lines ok Past Medical History: reviewed Allergies/Adverse Reactions: Allergies No Known Allergies Allergy (Verified 06/29/18 10:54) Objective Vital Signs 09/04/18 16:00 09/04/18 20:00 09/05/18 00:00 Temperature 98.0 F 97.6 F 98.6 F Pulse Rate 75 87 65 Respiratory Rate 17 20 20 Blood Pressure 124/84 141/71 H 121/59 L Pulse Oximetry 95 97 96 09/05/18 08:00 09/05/18 12:00 Temperature 98.1 F 97.8 F Pulse Rate 70 81 Respiratory Rate 16 17 Blood Pressure 114/58 L 162/86 H Pulse Oximetry 96 95 Intake & Output 09/04/18 09/05/18 09/05/18 18:59 06:59 18:59 Intake Total 3840 / 3840 2780 / 2780 1000 / 1000 Output Total 650 / 650 1500 / 1500 Balance 3190 / 3190 1280 / 1280 1000 / 1000 Weight 147 kg Intake: IV 2965 / 2965 1999 1000 / 1000 NS Inj 1,000 ML @ 180 mls/hr IV 2865 / 2865 1999 1000 / 1000 .CONT .Q5H34M [facility] Rx#:[id number] Rocephin Inj 2,000 MG In NS Inj 100 / 100 100 ML @ 200 mls/hr IV.SIG Q24H [facility] Rx#:[id number] Oral 875 / 875 780 / 780 Output: Urine 650 / 650 1500 / 1500 Other: Date of Last Bowel Movement 09/04/18 09/04/18 # Bowel Movements 1 09/04/18 09:30 Blood - Peripheral Aerobic Blood Culture - Preliminary No growth in 1 day 09/04/18 09:30 Blood - Peripheral Anaerobic Blood Culture - Preliminary No growth in 1 day 09/04/18 09:10 Blood - Peripheral Aerobic Blood Culture - Preliminary No growth in 1 day 09/04/18 09:10 Blood - Peripheral Anaerobic Blood Culture - Preliminary No growth in 1 day 09/02/18 11:05 Blood - Peripheral Aerobic Blood Culture - Final Klebsiella pneumoniae 09/02/18 11:05 Blood - Peripheral Anaerobic Blood Culture - Final Klebsiella pneumoniae 09/02/18 11:00 Blood - Peripheral Aerobic Blood Culture - Final Klebsiella pneumoniae 09/02/18 11:00 Blood - Peripheral Anaerobic Blood Culture - Final Klebsiella pneumoniae 09/02/18 11:30 Clean Catch Urine Urine Culture - Final Klebsiella pneumoniae Lab - Hematology Results 09/04/18 09/05/18 06:15 06:48 WBC 4.7 4.2 RBC 4.50 4.37 L Hgb 13.3 13.0 Hct 39.5 38.7 L MCV 87.8 88.5 MCH 29.5 29.7 MCHC 33.6 33.5 RDW 14.1 14.1 Plt Count 121 L 123 L MPV 8.0 8.2 Prelim Diff (Auto) Manual diff required Neut % (Auto) 63.3 Lymph % (Auto) 22.8 [place] % (Auto) 9.2 H Eos % (Auto) 4.1 H Baso % (Auto) 0.6 Neut # (Auto) 2.7 Lymph # (Auto) 1.0 [place] # (Auto) 0.4 Eos # (Auto) 0.2 Baso # (Auto) 0.0 WBC Differential Manual diff final . Seg Neuts % (Manual) 62 Band Neuts % (Manual) 18 H Lymphocytes % (Manual) 12 Monocytes % (Manual) 6 Eosinophils % (Manual) 1 Basophils % (Manual) 1 Abs Neuts (Manual) 3.8 Differential Comment . Auto diff final Toxic Vacuolation Present H Platelet Estimate Low L Platelet Morphology Normal Lab - Chemistry Results 09/04/18 09/05/18 06:15 06:48 Sodium 142 146 H Potassium 3.8 3.6 Chloride 114 H 115 H Carbon Dioxide 23.6 24.2 Anion Gap 4 L 7 BUN 13 10 Creatinine 0.65 0.52 L Estimated GFR Greater than 89 Greater than 89 Random Glucose 106 91 Calcium 7.6 L 7.5 L Total Bilirubin 0.3 0.3 AST 55 H 45 H ALT 38 36 Alkaline Phosphatase 68 71 Total Protein 5.8 L D 5.8 L Albumin 2.6 L 2.6 L Imaging: ITS Impressions Abdomen/Pelvis CT 09/02/18 10:42 CONCLUSION: 1. Bilateral renal calculi probably staghorn. 2. There are no calcifications in either ureter. There is no significant perinephric stranding to suggest obstruction at this point. Physical Exam: GENERAL: Well-nourished well-developed, not in acute distress SKIN: Cool and dry, no generalized rash HEAD: Atraumatic. Normocephalic. No temporal or scalp tenderness. EYES: Pupils equal round and reactive. Scleral icterus. No injection or drainage. No petechia ENT: Nothing abnormal detected NECK: Trachea midline. Supple, nontender, no meningeal signs. CARDIOVASCULAR: HS audible. RESPIRATORY: Clear to auscultation bilaterally. GASTROINTESTINAL: Abdomen soft nontender. Obese. MUSCULOSKELETAL: Extremities without clubbing, cyanosis. NEUROLOGICAL: Alert oriented 3. Has a tremor in his bilateral upper extremities right more than left especially when engaged in stressful conversations. Psych flat affect IV line sites ok. Assessment and Plan - Plan Sepsis present on admission Klebsiella bacteremia likely secondary to UTI. Kleb UTI complicated secondary to staghorn calculi. Staghorn calculus likely nidus of infection and needs to be addressed to prevent UTIs. Recs Continue Ceftriaxone IV (Kleb not a ESBL or CRE based on verigene testing by Micro as markers negative. Follow repeat blood cultures x 2 if these remain negative no further workup needed and patient may be discharged at 48-72 hrs interval on oral levaquin. It is important to residential substance abuse counselor patient about risk for Cdiff and tendinitis. Also important to make sure no milk/milk products or antacids or food be taken for 2 hours before and 2 hours after Levaquin. Levaquin 750 mg po daily for 12 more days on discharge. Imp for him to follow up with as outpatient. But if repeat blood cultures positive he may need more workup please call the call center for [facility] to see the patient. Check 12 lead EKG if QT prolonged alternative treatment regimen may need to be selected by [facility]. Follow cultures follow clinical course. owen pt I will be OOT from 09/06/2018 to 09/11/2018. Will sign off please call back [facility] if any change in clinical condition or questions.
[2018-09-05] MEDS ORDERED: QUEtiapine 100 MG Tablet PO SCH (20:00)
[2018-09-06 06:20] LABS: Baso % (Auto) 0.6 % (0.0-2.0); Eos # (Auto) 0.2 th/mm3 (0.0-0.4); Eos % (Auto) 4.8 % (0.0-4.0); Hematocrit 38.7 % (39.0-51.0); Hemoglobin 13.2 gm/dL (13.0-17.0); Lymph # (Auto) 1.2 th/mm3 (1.0-4.8); Lymph % (Auto) 27.4 % (9.0-44.0); Mean Corpuscular HGB Conc 34.1 % (32.0-36.0); Mean Corpuscular Hemoglobin 29.8 pg (27.0-34.0); Mean Corpuscular Volume 87.4 fL (80.0-100.0); Mean Platelet Volume 8.1 fL (7.0-11.0); Mono # (Auto) 0.3 th/mm3 (0.0-0.9); Mono % (Auto) 7.6 % (0.0-8.0); Neut # (Auto) 2.6 th/mm3 (1.8-7.7); Neut % (Auto) 59.6 % (16.0-70.0); Platelet Count 132 th/mm3 (150-450); Red Blood Count 4.42 mil/mm3 (4.50-5.90); Red Cell Distribution Width 14.3 % (11.6-17.2); White Blood Count 4.4 th/mm3 (4.0-11.0)
[2018-09-06 06:43] LABS: Anion Gap 6 meq/L (5-15); Blood Urea Nitrogen 11 mg/dL (7-18); Calcium 8.1 mg/dL (8.5-10.1); Carbon Dioxide 26.2 meq/L (21.0-32.0); Chloride 112 meq/L (98-107); Glomerular Filtration Rate Greater Than 89 mL/min (>89); Glucose,Random 91 mg/dL (74-106); Potassium 3.6 meq/L (3.5-5.1); Sodium 144 meq/L (136-145)
--- NOTE | 2018-09-06 08:38 | ECG ---
Date Performed: 09/05/2018 Time Performed: 15:37:37 PTAGE: 58 years EKG: Sinus rhythm LOW QRS VOLTAGE IN PRECORDIAL LEADS SEPTAL MYOCARDIAL INFARCTION , OF INDETERMINATE AGE ABNORMAL ECG PREVIOUS TRACING : 06/30/2018 10.08 DOCTOR: Jose Alfredo Rubio Interpretating Date/Time 09/06/2018 08:34:28
[2018-09-06] MEDS: Metoprolol Tartrate 25 MG Tablet PO SCH (09:41)
[2018-09-06] MEDS: Senna/Docusate Sodium 8.6/50 MG Tablet PO SCH (09:41)
--- NOTE | 2018-09-06 10:12 | P.PNFP ---
Subjective Interval history: Patient seen and examined at bedside. He is lying comfortably in bed. Says that he slept well overnight. He has no complaints today. Is wondering whether he will be staying in house for urology to do procedure on renal calculi. Understands the plan moving forward in regard to his blood culture results and starting on p.o. antibiotics. He denies any chest pain, shortness of breath, abdominal pain, problems with urination or defecation. <Ashley Kennedy - 09/06/18 14:06> Results - Labs Result diagrams: 09/06/18 05:44 09/06/18 05:44 <Rain Alberto - 09/06/18 14:53> Abnormal lab results 09/06/18 09/06/18 Range/Units 05:44 05:44 RBC 4.42 L (4.50-5.90) mil/mm3 Hct 38.7 L (39.0-51.0) % Plt Count 132 L (150-450) th/mm3 Eos % (Auto) 4.8 H (0.0-4.0) % Chloride 112 H (98-107) meq/L Calcium 8.1 L (8.5-10.1) mg/dL Short CBC 09/06/18 Range/Units 05:44 WBC 4.4 (4.0-11.0) th/mm3 Hgb 13.2 (13.0-17.0) gm/dL Hct 38.7 L (39.0-51.0) % Plt Count 132 L (150-450) th/mm3 BMP 09/06/18 05:44 Sodium 144 Potassium 3.6 Chloride 112 H Carbon Dioxide 26.2 BUN 11 Creatinine 0.65 Calcium 8.1 L <Rain Alberto R - 09/06/18 14:53> Abnormal lab results 09/06/18 09/06/18 Range/Units 05:44 05:44 RBC 4.42 L (4.50-5.90) mil/mm3 Hct 38.7 L (39.0-51.0) % Plt Count 132 L (150-450) th/mm3 Eos % (Auto) 4.8 H (0.0-4.0) % Chloride 112 H (98-107) meq/L Calcium 8.1 L (8.5-10.1) mg/dL Short CBC 09/06/18 Range/Units 05:44 WBC 4.4 (4.0-11.0) th/mm3 Hgb 13.2 (13.0-17.0) gm/dL Hct 38.7 L (39.0-51.0) % Plt Count 132 L (150-450) th/mm3 BMP 09/06/18 05:44 Sodium 144 Potassium 3.6 Chloride 112 H Carbon Dioxide 26.2 BUN 11 Creatinine 0.65 Calcium 8.1 L <Ashley Kennedy - 09/06/18 10:12> Physical Exam Vital signs: Vital Signs 09/05/18 17:08 09/05/18 20:00 09/06/18 00:00 Temperature 97.4 F L 97.8 F 97.5 F L Pulse Rate 76 75 70 Respiratory Rate 17 20 18 Blood Pressure 130/69 159/83 H 111/67 Pulse Oximetry 98 95 95 09/06/18 08:00 09/06/18 12:00 Temperature 97.9 F 97.8 F Pulse Rate 73 74 Respiratory Rate 16 16 Blood Pressure 126/78 127/80 Pulse Oximetry 98 93 L Intake & Output 09/05/18 09/06/18 09/06/18 18:59 06:59 18:59 Intake Total 2300 / 2300 60 / 60 Output Total 900 / 900 800 / 800 Balance 1400 / 1400 -740 / -740 Weight 153.9 kg Intake: IV 1100 / 1100 NS Inj 1,000 ML @ 180 mls/hr IV 1000 / 1000 .CONT .Q5H34M [facility] Rx#:[id number] Rocephin Inj 2,000 MG In NS Inj 100 / 100 100 ML @ 200 mls/hr IV.SIG Q24H [facility] Rx#:[id number] Oral 1200 / 1200 60 / 60 Output: Urine 900 / 900 800 / 800 Other: Date of Last Bowel Movement 09/04/18 09/05/18 09/06/18 # Bowel Movements 1 <Rain Alberto - 09/06/18 14:53> Vital Signs 09/05/18 12:00 09/05/18 17:08 09/05/18 20:00 Temperature 97.8 F 97.4 F L 97.8 F Pulse Rate 81 76 75 Respiratory Rate 17 17 20 Blood Pressure 162/86 H 130/69 159/83 H Pulse Oximetry 95 98 95 09/06/18 00:00 Temperature 97.5 F L Pulse Rate 70 Respiratory Rate 18 Blood Pressure 111/67 Pulse Oximetry 95 Intake & Output 09/05/18 09/06/18 09/06/18 18:59 06:59 18:59 Intake Total 2300 / 2300 60 / 60 Output Total 900 / 900 800 / 800 Balance 1400 / 1400 -740 / -740 Weight 153.9 kg Intake: IV 1100 / 1100 NS Inj 1,000 ML @ 180 mls/hr IV 1000 / 1000 .CONT .Q5H34M [facility] Rx#:[id number] Rocephin Inj 2,000 MG In NS Inj 100 / 100 100 ML @ 200 mls/hr IV.SIG Q24H [facility] Rx#:[id number] Oral 1200 / 1200 60 / 60 Output: Urine 900 / 900 800 / 800 Other: Date of Last Bowel Movement 09/04/18 09/05/18 # Bowel Movements 1 <MarciaJackAshley - 09/06/18 10:12> Narrative: GENERAL: Well-nourished well-developed, not in acute distress SKIN: Cool and dry, no generalized rash HEAD: Atraumatic. Normocephalic. No temporal or scalp tenderness. EYES: Pupils equal round and reactive. Scleral icterus. No injection or drainage. No petechia ENT: Nothing abnormal detected NECK: Trachea midline. Supple, nontender, no meningeal signs. CARDIOVASCULAR: Regular rate and rhythm no murmurs appreciated RESPIRATORY: Clear to auscultation bilaterally. GASTROINTESTINAL: Abdomen soft nontender. MUSCULOSKELETAL: Extremities without clubbing, cyanosis. No pedal edema appreciated bilaterally. NEUROLOGICAL: Alert oriented 3. Has a tremor in his bilateral upper extremities right more than left. Psych flat affect -unchanged <KarenalonzoJack monteroAshley - 09/06/18 10:12> Assessment and Plan - Assessment (1) Bacteremia Code(s): R78.81 - Bacteremia Status: Acute (2) Urinary tract infection Code(s): N39.0 - Urinary tract infection, site not specified Status: Acute (3) Hypertension Code(s): I10 - Essential (primary) hypertension Status: Chronic (4) Parkinson disease Code(s): G20 - Parkinson's disease Status: Chronic (5) Anxiety Code(s): F41.9 - Anxiety disorder, unspecified Status: Chronic (6) DVT prophylaxis Status: Acute (7) Nutrition, metabolism, and development symptoms Code(s): R63.8 - Other symptoms and signs concerning food and fluid intake Status: Acute <Rain Alberto - 09/06/18 14:53> (1) Bacteremia Code(s): R78.81 - Bacteremia Status: Acute Plan: Met Sirs criteria on admission Was started on vancomycin and Zosyn initially, blood cultures grew Klebsiella and infectious disease was consulted. Infectious disease discontinued Vanco Zosyn and started on Rocephin Urine cultures also growing Klebsiella, suspected source Repeat blood cultures pending Per ID: If blood cultures are negative patient can be discharged on oral Levaquin 750 mg daily for 12 days. EKG per resident read: No QT prolongation. (2) Urinary tract infection Code(s): N39.0 - Urinary tract infection, site not specified Status: Acute Plan: UA shows moderate amount of leukocyte esterase, positive nitrates, large amounts of occult blood. CT abdomen shows renal calculi, no apparent stones. Concerning for Proteus. Urine culture growing Klebsiella, ID consulted and on Rocephin. Will DC on Levaquin. Urology consulted due to frequent UTIs per patient - will follow up as outpatient (3) Hypertension Code(s): I10 - Essential (primary) hypertension Status: Chronic Plan: Continue metoprolol dose. Continue home pravastatin. (4) Parkinson disease Code(s): G20 - Parkinson's disease Status: Chronic Plan: Continue carbidopa levodopa. (5) Anxiety Code(s): F41.9 - Anxiety disorder, unspecified Status: Chronic Plan: Lorazepam as needed for anxiety - required one dose on 09/04 Seroquel at night. Ambien for insomnia. (6) DVT prophylaxis Status: Acute Plan: SCDs only. (7) Nutrition, metabolism, and development symptoms Code(s): R63.8 - Other symptoms and signs concerning food and fluid intake Status: Acute Plan: Fluids: Discontinuing IV fluids on 09/05, encouraging p.o. intake Electrolyte: Monitor and replete as needed. Nutrition: Cardiac diet. <Ashley Kennedy - 09/06/18 14:10> - Assessment and Plan 58-year-old male with past medical history of kidney stones and UTIs presents with right-sided flank pain. UA positive for leukocyte esterase and high amounts of bacteria. Initially treated for complicated cystitis with vancomycin and Zosyn. Urology consulted to evaluate patient's frequent UTIs and kidney stones. Patient's blood and urine cultures are growing Klebsiella. Infectious disease was consulted and patient was switched to Rocephin. Repeat blood cultures pending <Ashley Kennedy - 09/06/18 10:12> - Attending Attestation Patient seen and examined and dw the resident team and agree with the assessment and plan. Per discussion with urology -- this patient will require repeat procedures on the staghorn calculus every two weeks over the next few months. Urology has already started working on getting this going for this patient. DW Patient and his the plan for this and they are agreeable. Since patient clinically has stabilized and blood cultures now negative -- will dc to home with close fu with PCP and Urology. <Rain Alberto - 09/06/18 14:53> <Ashley Kennedy - Last Filed: 09/06/18 14:10> (2) Urinary tract infection Qualifiers: Urinary tract infection type: site unspecified Hematuria presence: without hematuria Qualified Code(s): N39.0 - Urinary tract infection, site not specified (3) Hypertension Qualifiers: Hypertension type: essential hypertension Qualified Code(s): I10 - Essential (primary) hypertension <Rain Alberto - Last Filed: 09/06/18 14:53> (2) Urinary tract infection Qualifiers: Urinary tract infection type: site unspecified Hematuria presence: without hematuria Qualified Code(s): N39.0 - Urinary tract infection, site not specified (3) Hypertension Qualifiers: Hypertension type: essential hypertension Qualified Code(s): I10 - Essential (primary) hypertension <Ashley Kennedy - Last Filed: 09/06/18 14:10> (2) Urinary tract infection Qualifiers: Urinary tract infection type: site unspecified Hematuria presence: without hematuria Qualified Code(s): N39.0 - Urinary tract infection, site not specified (3) Hypertension Qualifiers: Hypertension type: essential hypertension Qualified Code(s): I10 - Essential (primary) hypertension <Rain Alberto - Last Filed: 09/06/18 14:53> (2) Urinary tract infection Qualifiers: Urinary tract infection type: site unspecified Hematuria presence: without hematuria Qualified Code(s): N39.0 - Urinary tract infection, site not specified (3) Hypertension Qualifiers: Hypertension type: essential hypertension Qualified Code(s): I10 - Essential (primary) hypertension
--- NOTE | 2018-09-06 12:41 | P.DS ---
Date of admission: 09/02/18 14:24 Primary care physician: Willy Green DO Brief History from admission: 58 year old male presents with increased urination with incontinence and diaphoresis. This started a week and a half ago. It started with frequent urination during the day that occured every 30 minutes. He denies any increased thirst and denies any nocturia or dysuria. He started drinking lots of cranberry juice and water and that made him urinate more. Then a couple days ago he started having R side/flank pain, which was present when he laid down on his R side and it would go away when he got up to walk around. Denies any nausea or vomiting. Last two voids today were dark yellow/red in color. Today he had chills, feeling cold and had diaphoresis while trying to go the bathroom. [place] like the previous UTIs he had before and he decided to come in for further evaluation. A couple of weeks ago he also complained of a larger/ more swollen testicle on R side and more tender during intercourse. Had his prostate checked a couple months ago and it was normal. Never had a colonoscopy. Regular BMs. Denies CP, SOB, Leg Pain. DS: Diagnosis - Discharge Diagnosis (1) Bacteremia Status: Acute (2) Urinary tract infection Status: Acute (3) Hypertension Status: Chronic (4) Parkinson disease Status: Chronic (5) Anxiety Status: Chronic (6) DVT prophylaxis Status: Acute (7) Nutrition, metabolism, and development symptoms Status: Acute DS: Medications - Discharge Medications Prescriptions: levofloxacin [Levaquin] 750 mg PO DAILY #12 tab DS: Summary Hospital Course: 58-year-old male with past medical history of kidney stones and UTIs presents with right-sided flank pain. UA positive for leukocyte esterase and high amounts of bacteria. Initially treated for complicated cystitis with vancomycin and Zosyn. Urology consulted to evaluate patient's frequent UTIs and kidney stones. Patient's blood and urine cultures grew Klebsiella. Infectious disease was consulted and patient was switched to Rocephin. Repeat blood cultures were negative x 24 hours and ID recommended a 12 day course of Levaquin. Urology recommending follow up as outpatient for staghorn calculi. - Time Spent with Patient Total time spent providing and/or coordinating discharge services: Less than 30 minutes - Quality: VTE Deep Vein Thrombosis/Pulmonary Embolism Present on Admission: No Exam Vital signs: Vital Signs 09/05/18 17:08 09/05/18 20:00 09/06/18 00:00 Temperature 97.4 F L 97.8 F 97.5 F L Pulse Rate 76 75 70 Respiratory Rate 18 Blood Pressure 130/69 159/83 H 111/67 Pulse Oximetry 98 95 95 Intake & Output 09/05/18 09/06/18 09/06/18 18:59 06:59 18:59 Intake Total 2300 / 2300 60 / 60 Output Total 900 / 900 800 / 800 Balance 1400 / 1400 -740 / -740 Weight 153.9 kg Intake: IV 1100 / 1100 NS Inj 1,000 ML @ 180 mls/hr IV 1000 / 1000 .CONT .Q5H34M [facility] Rx#:[id number] Rocephin Inj 2,000 MG In NS Inj 100 / 100 100 ML @ 200 mls/hr IV.SIG Q24H [facility] Rx#:[id number] Oral 1200 / 1200 60 / 60 Output: Urine 900 / 900 800 / 800 Other: Date of Last Bowel Movement 09/04/18 09/05/18 # Bowel Movements 1 Narrative: GENERAL: Well-nourished well-developed, not in acute distress SKIN: Cool and dry, no generalized rash HEAD: Atraumatic. Normocephalic. No temporal or scalp tenderness. EYES: Pupils equal round and reactive. Scleral icterus. No injection or drainage. No petechia ENT: Nothing abnormal detected NECK: Trachea midline. Supple, nontender, no meningeal signs. CARDIOVASCULAR: Regular rate and rhythm no murmurs appreciated RESPIRATORY: Clear to auscultation bilaterally. GASTROINTESTINAL: Abdomen soft nontender. MUSCULOSKELETAL: Extremities without clubbing, cyanosis. 1+ pitting edema noted to the level of the tibial plateau in the bilateral lower extremities. NEUROLOGICAL: Alert oriented 3. Has a tremor in his bilateral upper extremities right more than left especially when engaged in stressful conversations. Psych flat affect -unchanged Results Procedures completed during hospitalization: None Labs on day of discharge: Labs from last 24 hours 09/06/18 09/06/18 05:44 05:44 WBC 4.4 RBC 4.42 L Hgb 13.2 Hct 38.7 L MCV 87.4 MCH 29.8 MCHC 34.1 RDW 14.3 Plt Count 132 L MPV 8.1 Neut % (Auto) 59.6 Lymph % (Auto) 27.4 Shannon % (Auto) 7.6 Eos % (Auto) 4.8 H Baso % (Auto) 0.6 Neut # (Auto) 2.6 Lymph # (Auto) 1.2 Shannon # (Auto) 0.3 Eos # (Auto) 0.2 Baso # (Auto) 0.0 WBC Differential . Differential Comment Auto diff final Sodium 144 Potassium 3.6 Chloride 112 H Carbon Dioxide 26.2 Anion Gap 6 BUN 11 Creatinine 0.65 Estimated GFR Greater than 89 Random Glucose 91 Calcium 8.1 L Preliminary micro results at discharge 09/04/18 09:30 Aerobic Blood Culture - Preliminary Blood - Peripheral No growth in 2 days Anaerobic Blood Culture - Preliminary No growth in 2 days 09/04/18 09:10 Aerobic Blood Culture - Preliminary Blood - Peripheral No growth in 2 days Anaerobic Blood Culture - Preliminary No growth in 2 days - Impressions ITS Impressions Abdomen/Pelvis CT 09/02/18 10:42 CONCLUSION: 1. Bilateral renal calculi probably staghorn. 2. There are no calcifications in either ureter. There is no significant perinephric stranding to suggest obstruction at this point. Discharge Plan - Discharge Disposition Patient Disposition: 01 Discharge Home - Discharge Condition Condition: Stable - Discharge Order Discharge Orders: Discharge Order (Routine); Ordered 09/06/18 Ordered By: Ashley Kennedy - Physicians Team Primary Care Provider: Willy Green Attending Provider: Rain Alberto Other Providers: Manoj Lorenzo MD ; Tammy Fam MD
[2018-09-06 13:29] VITALS: BP 127/80; PULSE 74; RESP 16; TEMP 97.8; O2SAT 93
== END 2018-09-06 13:53 | disposition home or self-care (01) ==
LOC: NEPC 10:10 → NEDA 10:10 → INTOOBSV 13:50 → OBSVTOIN 13:58 → N07 15:13
PROVIDERS: ADMIT Family Medicine; ATTEND Family Medicine